=== PATIENT | male | born 1940 | race Caucasian/White ===

== ENCOUNTER 2016-03-03 13:48 | Inpatient (IN) | payer MEDICARE, BC ==
[~2016-03-03] VITALS: Ht 165.1 cm; Wt 75.3 kg
[2016-03-03] MEDS ORDERED: ONDANSETRON 4 MG INJ IV STA (14:12)
[2016-03-03] MEDS ORDERED: SOD CHLORIDE 0.9% 1,000 ML IV STA (14:12)
[2016-03-03] MEDS ORDERED: morphine 2 MG INJ IV ONE (14:30)
[2016-03-03 14:37] LABS: BASOPHILS % 0.1 % (0.0-2.0); EOSINOPHILS # 0.2 10^3/ul (0.0-0.5); HEMATOCRIT 43.5 % (42.0-52.0); HEMOGLOBIN 14.4 g/dl (14.0-18.0); LYMPHOCYTES # 1.2 10^3/ul (0.8-2.9); LYMPHOCYTES % 6.7 % (15.0-51.0); MEAN CORPUSCULAR HEMOGLOBIN 31.2 pg (29.0-33.0); MEAN CORPUSCULAR HGB CONC 33.2 g/dl (32.0-37.0); MEAN CORPUSCULAR VOLUME 93.9 fl (82.0-101.0); MEAN PLATELET VOLUME 8.5 fl (7.4-10.4); MONOCYTE # 0.9 10^3/ul (0.3-0.9); MONOCYTES % 4.7 % (0.0-11.0); NEUTROPHIL # 15.7 10^3/ul (1.6-7.5); NEUTROPHILS % 87.5 % (39.0-77.0); PLATELET COUNT 236 10^3/UL (140-440); RED BLOOD COUNT 4.63 10^6/ul (4.70-6.10)
[2016-03-03 14:42] LABS: ADD UMIC NO; URINE BILIRUBIN (Dip) NEGATIVE (NEGATIVE); URINE BLOOD (Dip) NEGATIVE (NEGATIVE); URINE COLOR LT. YELLOW (YELLOW); URINE GLUCOSE (Dip) >=1000 % (NEGATIVE); URINE KETONES (Dip) NEGATIVE (NEGATIVE); URINE LEUKOCYTE ESTERASE (Dip) NEGATIVE (NEGATIVE); URINE NITRITE (Dip) NEGATIVE (NEGATIVE); URINE TOTAL PROTEIN (Dip) NEGATIVE (NEGATIVE); URINE UROBILINOGEN (Dip) 0.2 E.U./dL (0.1-1.0)
[2016-03-03 14:43] LABS: CONDITION 1
[2016-03-03 14:47] LABS: INR 0.88; PROTIME 11.9 Sec (12.2-14.2); PT RATIO 0.9
[2016-03-03 14:48] LABS: PARTIAL THROMBOPLASTIN TIME 26.4 Sec (25.0-35.0)
[2016-03-03] MEDS ORDERED: CLOP75TA27 PO (14:51)
[2016-03-03] MEDS ORDERED: LISI40TA9 PO (14:51)
[2016-03-03 14:52] LABS: CREATININE 1.21 mg/dl (0.61-1.24)
[2016-03-03] MEDS ORDERED: ESCI10TA PO (14:52)
[2016-03-03] MEDS ORDERED: AMLO5TAB4 PO (14:52)
[2016-03-03 14:53] LABS: CALCIUM 9.2 mg/dl (8.4-10.2)
[2016-03-03] MEDS ORDERED: METF-382 PO (14:53)
[2016-03-03] MEDS ORDERED: ASPI-664 PO (14:54)
[2016-03-03] MEDS ORDERED: CANA100T PO (14:55)
[2016-03-03] MEDS ORDERED: CARV12.579 PO (14:56)
[2016-03-03] MEDS ORDERED: LANT3I SC (14:56)
[2016-03-03] MEDS ORDERED: FURO40TA4 PO (14:57)
[2016-03-03] MEDS ORDERED: LIRA0.6P SQ (14:59)
[2016-03-03] MEDS ORDERED: NOVO3I SC (15:00)
[2016-03-03] MEDS ORDERED: CYAN100 PO (15:01)
[2016-03-03 15:04] LABS: TROPONIN-I 0.016 ng/ml (0.00-0.12)
--- NOTE | 2016-03-03 15:37 | RADRPT ---
PROCEDURE: CT Brain without. CLINICAL INDICATION: Fall, laceration to right eyebrow. TECHNIQUE: A CT of the brain was performed on multidetector high-resolution CT scanner utilizing a xial sections from the skull base through the vertex without contrast. The scan was reviewed in sof t tissue brain and high frequency resolution bone algorithm windows. Images were reviewed on a high -resolution PACS workstation. One or more the following does reduction techniques were utilized: Aut omated exposure control, adjustment of the mA/ or kV according to patient's size, or use of iterativ e reconstruction technique. The exam CTDI = 44.80 mGy and the DLP = 720.23 mGy-cm. COMPARISON: None available. FINDINGS: The ventricles and sulci are mildly to moderately prominent indicative of volume loss. There is mild to moderate cerebellar volume loss. There is no intracranial hemorrhage, mass effect or midline sh ift. No abnormal intra-axial or extra-axial fluid collections are seen. The duran/white matter diffe rentiation is preserved. There is prominent retrocerebellar CSF space which may represent delmis ciste rna magna versus arachnoid cyst. There are moderate scattered foci of hypoattenuation in the white matter, which are nonspecific in e tiology but likely reflect chronic small vessel ischemic changes. Small lacunar infarcts are noted i n bilateral lentiform nuclei. There are moderate intracranial vascular calcifications consistent wi th atherosclerosis. The visualized paranasal sinuses are essentially clear. Mild right supraorbital soft tissue swelling is noted without underlying skull fracture. There is thinning of bilateral lens indicative of prior lens replacement. IMPRESSION: 1. No acute intracranial hemorrhage, transcortical infarction or mass effect. 2. Moderate intracranial atherosclerosis and chronic small vessel ischemic changes. 3. Small lacunar infarcts are noted in bilateral lentiform nuclei. 4. Mild to moderate generalized cerebral and cerebellar volume loss. 5. Mild right supraorbital soft tissue swelling is noted without underlying skull fracture. RPTAT: AA .Amita Chang MD, MD Date Time Electronically viewed and signed by .Amita Chang MD, MD on 03/03/2016 15:37 .N/
--- NOTE | 2016-03-03 15:37 | RADRPT ---
PROCEDURE: XR Chest. CLINICAL INDICATION: Chest pain TECHNIQUE: AP view of the chest was performed. COMPARISON: None. FINDINGS: The lungs are clear. The lung volumes are normal. The heart size is normal. The osseous structure s are intact. IMPRESSION: No radiographic evidence for acute cardiopulmonary disease RPTAT: QQ .Manjeet Damon MD, Date Time Electronically viewed and signed by .Manjeet Damon MD, on 03/03/2016 15:37 .M/
--- NOTE | 2016-03-03 15:51 | RADRPT ---
PROCEDURE: CT of the right femur without contrast CLINICAL INDICATION: Fall TECHNIQUE: CT scan of the right femur was performed. No IV contrast was administered. Coronal an d sagittal reformatted images were obtained from the axial source images. images. Use of iterative r econstruction technique was employed. images. The calculated radiation dose measures 1000.12 mGy jamie timeters. The CTDI measures 18.48 mGy. Images were reviewed on a high-resolution PACS workstation. COMPARISON: None. FINDINGS: Osseous structures: There is a comminuted, intertrochanteric fracture of the right hip with the lesser trochanter displa jovon medially by up to 1.1 cm. There is also mild displacement of the greater trochanter axial serie s image 52. Femoral head is otherwise located. There is underlying mild to moderate right hip arth rosis. The osseous structures appear demineralized. No additional fractures are identified. Soft tissues: There is soft tissue infiltration surrounding the fracture site related to hemorrhage/hematoma. No large intramuscular collections are suspected. Atherosclerotic vascular calcifications are seen. IMPRESSION: 1. Mildly comminuted and displaced right intertrochanteric fracture, as above. 2. Decreased bone mineral density. 3. Atherosclerotic vascular calcifications. RPTAT: QQ .Elton Saenz MD, Date Time Electronically viewed and signed by .Elton Saenz MD, MD on 03/03/2016 15:50 .d/
[2016-03-03] MEDS ORDERED: morphine 4 MG/ML VIAL IV STA (16:10)
[2016-03-03] MEDS ORDERED: ACETAMINOPHEN 325 MG TAB PO PRN ×2 (16:30→19:00)
[2016-03-03] MEDS ORDERED: ONDANSETRON 4 MG INJ IV PRN ×2 (16:30→19:00)
--- NOTE | 2016-03-03 16:56 | ERA ---
ER Documentation Chief Complaint Date/Time DATE: 03/03/16 TIME: 16:47 Chief Complaint trip and fall c/o rt groin pain ROS All systems reviewed and are negative except as per history of present illness. Medications Home Meds Reported Medications Cyanocobalamin* (Vitamin B12*) 100 Mcg Tab, 100 MCG PO DAILY, TAB 03/03/16 Insulin Aspart* (Novolog Insulin Pen*) 100 Unit/Ml Soln, 0 SC .SLIDING SCALE AC , EA BEFORE MEALS THREE TIMES DAILY 03/03/16 Liraglutide (Victoza 2-Kt) 0.6 Mg/0.1 Ml Pen.injctr, 1.2 MG SQ QAM, SYR 03/03/16 Furosemide* (Furosemide*) 40 Mg Tablet, 40 MG PO DAILY, TAB 03/03/16 Carvedilol* (Carvedilol*) 12.5 Mg Tablet, 12.5 MG PO BID, #60 TAB 03/03/16 Insulin Glargine* (Lantus*) 100 Unit/Ml Soln, 10-14 UNIT SC QHS, #1 VIAL 03/03/16 Canagliflozin (Invokana) 100 Mg Tablet, 100 MG PO DAILY, TAB 03/03/16 Aspirin (Low Dose Aspirin) 81 Mg Tablet.dr, 81 MG PO DAILY, #30 TAB 03/03/16 Metformin Hcl* (Metformin Hcl*) 500 Mg Tablet, 1000 MG PO WITH DINNER, #30 TAB 03/03/16 Amlodipine Besylate* (Norvasc*) 5 Mg Tablet, 5 MG PO DAILY, TAB 03/03/16 Escitalopram Oxalate* (Lexapro*) 10 Mg Tablet, 10 MG PO DAILY, #30 TAB 03/03/16 Clopidogrel Bisulfate (Clopidogrel) 75 Mg Tablet, 75 MG PO DAILY, #30 TAB 03/03/16 Lisinopril* (Lisinopril*) 40 Mg Tablet, 40 MG PO DAILY, #30 TAB 03/03/16 Allergies Allergies: Coded Allergies: No Known Allergy (Unverified , 03/03/16) PMhx/Soc History of Surgery: Yes (PROSTATECTOMY, APPENDIX) Anesthesia Reaction: No Hx Neurological Disorder: No Hx Respiratory Disorders: No Hx Cardiac Disorders: Yes (HTN) Hx Psychiatric Problems: No Hx Miscellaneous Medical Probl: Yes (DM) Hx Alcohol Use: Yes (SOCIALLY) Hx Substance Use: No Hx Tobacco Use: No Smoking Status: Never smoker Physical Exam Vitals Vital Signs Date Time Temp Pulse Resp B/P Pulse Ox O2 Delivery O2 Flow Rate FiO2 03/03/16 13:56 97.7 51 18 146/122 97 Physical Exam Const: [] Head: Atraumatic Eyes: Normal Conjunctiva ENT: Normal External Ears, Nose and Mouth. Neck: Full range of motion..~ No meningismus. Resp: Clear to auscultation bilaterally Cardio: Regular rate and rhythm, no murmurs Abd: Soft, non tender, non distended. Normal bowel sounds Skin: No petechiae or rashes Back: No midline or flank tenderness Ext: No cyanosis, or edema Neur: Awake and alert Psych: Normal Mood and Affect Result Diagram: 03/03/16 1415 03/03/16 1415 Results 24 hrs Laboratory Tests Test 03/03/16 14:00 03/03/16 14:15 03/03/16 15:47 Urine Bilirubin NEGATIVE Urine Clarity CLEAR Urine Color LT. YELLOW Urine Glucose >=1000% Urine Hemoglobin NEGATIVE Urine Ketones NEGATIVE Urine Leukocyte Esterase NEGATIVE Urine Nitrite NEGATIVE Urine Specific [place] 1.010 Urine Total Protein NEGATIVE Urine Urobilinogen 0.2 E.U./dL Urine pH 6.5 Activated Partial Thromboplast Time 26.4Sec Anion Gap 17 Basophils # 0.010^3/ul Basophils % 0.1% Blood Urea Nitrogen 28mg/dl Calcium Level 9.2mg/dl Carbon Dioxide Level 28mmol/L Chloride Level 97mmol/L Creatinine 1.21mg/dl Eosinophils # 0.210^3/ul Eosinophils % 1.0% Glucose Level 349mg/dl Hematocrit 43.5% Hemoglobin 14.4g/dl INR International Normalized Ratio 0.88 Lymphocytes # 1.210^3/ul Lymphocytes % 6.7% Mean Corpuscular Hemoglobin 31.2pg Mean Corpuscular Hemoglobin Concent 33.2g/dl Mean Corpuscular Volume 93.9fl Mean Platelet Volume 8.5fl Monocytes # 0.910^3/ul Monocytes % 4.7% Neutrophils # 15.710^3/ul Neutrophils % 87.5% Nucleated Red Blood Cells # 0.010^3/ul Nucleated Red Blood Cells % 0.0/100WBC Platelet Count 02434^3/UL Potassium Level 4.0mmol/L Prothrombin Time 11.9Sec Prothrombin Time Ratio 0.9 Red Blood Count 4.6310^6/ul Red Cell Distribution Width 13.0% Sodium Level 138mmol/L Troponin I 0.016ng/ml White Blood Count 18.010^3/ul Lactic Acid Level 1.5mmol/L Current Medications Medications (Trade) Dose Ordered Sig/Genaro Route PRN Reason Start Time Stop Time Status Last Admin Dose Admin Sodium Chloride (NS) 1,000 ml @ 1,000 mls/hr Q1H STAT IV 03/03/16 14:12 03/03/16 15:11 DC 03/03/16 14:24 Morphine Sulfate (morphine) 2 mg ONCE ONCE IV 03/03/16 14:30 03/03/16 14:31 DC 03/03/16 14:25 Ondansetron HCl (Zofran Inj) 4 mg ONCE STAT IV 03/03/16 14:12 03/03/16 14:17 DC 03/03/16 14:25 Morphine Sulfate (morphine) 4 mg ONCE STAT IV 03/03/16 16:10 03/03/16 16:11 DC 03/03/16 16:15 Ondansetron HCl (Zofran Inj) 4 mg BRIDGE ORDER PRN IV NAUSEA AND/OR VOMITING 03/03/16 16:30 03/04/16 16:29 Acetaminophen (Tylenol Tab) 650 mg ER BRIDGE PRN PO MILD PAIN/FEVER 03/03/16 16:30 03/04/16 16:29 Procedures/MDM Hip fracture status post fall backwards. Patient has some bradycardia but no signs of acute coronary syndrome or acute ischemia. He does have an elevated white blood cell count 18 but no urinary tract infection no abdominal pain and no cough or shortness of breath. Has been feeling weaker than normal lately but no other acute anomalies are found. He is happy and joking around in the emergency room. He was given 2 mg of morphine which helped his pain though when he moves he had additional pain he was then given 4 mg of morphine. He was also given Zofran and normal saline hydration. He also had a high blood sugar and mild renal insufficiency with elevated BUN and was treated with the normal saline. I spoke with Dr Ward, orthopedist on-call, who stated that he would see the patient on consult and surgery likely be performed on Friday. I spoke with Dr. Montoya will be admitting the patient.. EKG interpretation: Sinus bradycardia rate of 44, left axis deviation, diffuse T -wave flattening versus low voltage, no ST elevations or depressions concerning for acute ischemia. air sampling and monitoring interpretation: Mild sinus bradycardia without other arrhythmias. Chest x-ray interpretation: No acute process, no infiltrates, no hemorrhage no pleural effusion or pneumothorax no fractures Head CT interpretation: I see no acute process. No hemorrhage no mass effect or midline shift no skull fracture CT left upper extremity interpretation: Comminuted intertrochanteric hip fracture. No other fractures or dislocations visualized. Departure Diagnosis: Primary Impression: Closed right hip fracture Additional Impressions: Hyperglycemia due to type 2 diabetes mellitus Bradycardia Renal insufficiency Condition: Stable IMMANUEL GASTON DO Mar 03, 2016 16:56
[2016-03-03 17:10] VITALS: BP 135/76; PULSE 68; RESP 20
[2016-03-03 17:16] VITALS: Ht 165.1 cm; Wt 75.3 kg
[2016-03-03] MEDS ORDERED: NACL 0.9% 3 ML SYG IV SCH (19:00)
[2016-03-03] MEDS ORDERED: DEXTROSE 50% 50 ML SYRINGE IV PRN ×2 (19:00)
[2016-03-03] MEDS ORDERED: GLUCAGON 1 MG INJ IM PRN (19:00)
[2016-03-03] MEDS ORDERED: GLUCOSE GEL 15 GRAM TUBE BUCCAL PRN (19:00)
[2016-03-03] MEDS ORDERED: GLUCOSE GEL 15 GRAM TUBE PO PRN ×2 (19:00)
[2016-03-03] MEDS ORDERED: DOCUSATE SODIUM 100 MG CAP PO PRN (19:00)
--- NOTE | 2016-03-03 20:16 | HP ---
DATE OF ADMISSION: 03/03/2016 CHIEF COMPLAINT: Right hip pain. HISTORY OF PRESENT ILLNESS: The patient is a 75-year-old male with a history of prostate cancer sta tus post prostatectomy, coronary artery disease, status post stents, insulin-dependent diabetes and hypertension. The patient presents after having mechanical fall while he was at work. He landed on the right hip who presented with hip pain. In the ED, the patient had a CT of the right femur that showed a fracture on the right side. The patient does have complaints of pain in his right hip at this time and he has no other complaints. He states that he did fall some time ago, but did not hav e any fractures. He denies any loss of consciousness before or after the fall. PAST MEDICAL HISTORY: As per HPI. PAST SURGICAL HISTORY: 1. Prostatectomy secondary to prostate cancer. 2. PCI with stent. 3. Cataract surgery. HOME MEDICATIONS: 1. Norvasc. 2. Aspirin. 3. Coreg. 4. Plavix. 5. Vitamin B12. 6. Lexapro. 7. Furosemide. 8. Insulin. 9. Lisinopril. 10. Metformin. 11. Victoza. 12. Invokana. ALLERGIES: NO KNOWN DRUG ALLERGIES. FAMILY HISTORY: Diabetes. SOCIAL HISTORY: Denies any current alcohol abuse, drug abuse, tobacco abuse. REVIEW OF SYSTEMS: A 12-point review of systems negative except as in HPI. PHYSICAL EXAMINATION: VITAL SIGNS: Temperature is 98.8, pulse 60, respiratory rate 20, blood pressure 135/76, saturation 98% on room air. GENERAL: No acute distress, alert and oriented. HEENT: Normocephalic, atraumatic. LUNGS: Clear to auscultation. CARDIOVASCULAR: Regular rate and rhythm. ABDOMEN: Nondistended, nontender, soft. EXTREMITIES: No clubbing, cyanosis, or edema. LABORATORIES: White count is 18.0, hemoglobin is 14.4, platelets 236. Chemistry within normal limi ts except for anion gap of 17, BUN is 28, creatinine is 1.2, glucose is 349. Troponin is 0.016. La ctic acid is 1.5. INR is 0.88. Urine is normal. DIAGNOSTICS: 1. Lower extremity CT shows mildly comminuted and displaced right intertrochanteric fracture and de creased bone marrow density atherosclerosis. 2. Chest x-ray shows no evidence of active disease. 3. Brain CT shows no acute intracranial hemorrhage, infarction or mass effect. Moderate intracrani al atherosclerosis, chronic small vessel ischemic changes, small lacunar infarcts and bilateral lent iform nuclei, mild to moderate generalized cerebral and cerebellar volume loss, mild right supraorbi alanis soft tissue swelling without underlying skull fracture. ASSESSMENT AND PLAN: 1. Right hip fracture. Orthopedics, Dr. Ward has been called, follow up with his recommendations. Continue morphine and [place] for pain control. The patient states that he is unable to urinate while lying down, he needs cannot urinate hence Ch catheter will be placed for this reason. 2. Diabetes. Continue with Lantus and give NovoLog scheduled as well as a sliding scale. 3. Hypertension. We will continue home Norvasc. 4. Depression. Continue home Lexapro. 5. Coronary artery disease. Hold aspirin and Plavix in anticipation of surgery. 6. Leukocytosis. This is likely reactive. No signs of infection. No indication for antibiotics a t this time. 7. Prophylaxis. Heparin. Dictated By: ADOLFO OBRIEN MD BS/NTS Conf#: [id number] DID#: [id number]
[2016-03-03 20:19] VITALS: BP 156/78; RESP 18
[2016-03-03] MEDS: morphine 2 MG INJ IV PRN (20:38)
[2016-03-03] MEDS: HEPARIN 5,000 UNIT/0.5 ML SYG SC SCH (20:41)
[2016-03-03] MEDS: INSULIN ASPART [NOVOLOG] 3 ML PEN SC SCH (20:42)
[2016-03-03] MEDS: INSULIN GLARGINE [LANtus] 3 ML PEN SC SCH (20:43)
[2016-03-03] MEDS ORDERED: INSULIN GLARGINE [LANtus] 3 ML PEN SC SCH (21:00)
[2016-03-03] MEDS ORDERED: FAMOTIDINE 20 MG INJ IV SCH (22:00)
[2016-03-03] MEDS: ZOLPIDEM 5 MG TAB PO PRN (22:26)
[2016-03-03] MEDS: FAMOTIDINE 20 MG INJ IV SCH (22:26)
[2016-03-04 05:44] LABS: BASOPHILS % 0.2 % (0.0-2.0); EOSINOPHILS % 0.3 % (0.0-7.0); HEMATOCRIT 30.7 % (42.0-52.0); HEMOGLOBIN 10.6 g/dl (14.0-18.0); LYMPHOCYTES # 1.2 10^3/ul (0.8-2.9); LYMPHOCYTES % 12.3 % (15.0-51.0); MEAN CORPUSCULAR HEMOGLOBIN 32.3 pg (29.0-33.0); MEAN CORPUSCULAR HGB CONC 34.6 g/dl (32.0-37.0); MEAN CORPUSCULAR VOLUME 93.4 fl (82.0-101.0); MEAN PLATELET VOLUME 8.7 fl (7.4-10.4); MONOCYTES % 10.4 % (0.0-11.0); NEUTROPHIL # 7.4 10^3/ul (1.6-7.5); NEUTROPHILS % 76.8 % (39.0-77.0); PLATELET COUNT 169 10^3/UL (140-440); RED BLOOD COUNT 3.29 10^6/ul (4.70-6.10); UNCORRECTED WBC 9.6 10^3/ul (4.8-10.8); WHITE BLOOD COUNT 9.6 10^3/ul (4.8-10.8)
[2016-03-04 05:55] LABS: CONDITION 1
[2016-03-04 06:01] LABS: ALBUMIN 2.7 g/dl (3.3-4.9)
[2016-03-04 06:02] LABS: POTASSIUM 3.4 mmol/L (3.5-5.1)
[2016-03-04 06:04] LABS: ALBUMIN/GLOBULIN RATIO 1.35; BILIRUBIN,INDIRECT 1.6 mg/dl (0-1.1); BILIRUBIN,TOTAL 1.6 mg/dl (0.2-1.3); CREATININE 1.22 mg/dl (0.61-1.24); TOTAL PROTEIN 4.7 g/dl (6.1-8.1)
[2016-03-04 06:05] LABS: CALCIUM 8.1 mg/dl (8.4-10.2); CHOL/HDL RATIO 1.5 RATIO; MAGNESIUM 1.9 mg/dl (1.7-2.5); PHOSPHORUS 4.6 mg/dl (2.5-4.9)
[2016-03-04 06:23] VITALS: BP 116/66; PULSE 66
[2016-03-04] MEDS: FUROSEMIDE 40 MG TAB PO SCH (06:26)
[2016-03-04] MEDS ORDERED: INSULIN ASPART [NOVOLOG] 3 ML PEN SC SCH (07:50)
[2016-03-04 08:00] VITALS: BP 125/62; PULSE 65; RESP 16
[2016-03-04] MEDS ORDERED: POTASSIUM CHLORIDE 20 MEQ in SOD CHLORIDE 0.9% 100 ML IVPB ONE (08:00)
[2016-03-04] MEDS: morphine 2 MG INJ IV PRN (08:25)
[2016-03-04] MEDS: INSULIN ASPART [NOVOLOG] 3 ML PEN SC SCH ×6 (08:31→20:58)
[2016-03-04] MEDS: ESCITALOPRAM 10 MG TAB PO SCH (08:54)
[2016-03-04] MEDS: AMLODIPINE 5 MG TAB PO SCH (08:54)
[2016-03-04] MEDS: CYANOCOBALAMIN 100 MCG TAB PO SCH (08:54)
[2016-03-04] MEDS: LISINOPRIL 20 MG TAB PO SCH (08:55)
[2016-03-04] MEDS: HEPARIN 5,000 UNIT/0.5 ML SYG SC SCH (09:00)
--- NOTE | 2016-03-04 09:20 | CONS ---
DATE OF ADMISSION: 03/03/2016 DATE OF CONSULTATION: 03/04/2016 CHIEF COMPLAINT: Right hip pain. HISTORY OF PRESENT ILLNESS: This is a 75-year-old male who is a community ambulator. The patient d oes not use any assistive devices. He fell onto his right hip. He is complaining of right groin pa in. He denies any loss of consciousness. REVIEW OF SYSTEMS: He denies having chest pain or shortness of breath. He has no other complaints. PAST MEDICAL HISTORY: Hypertension, diabetes, prostate cancer, coronary artery disease. MEDICATIONS: 1. Norvasc. 2. Aspirin. 3. Coreg. 4. Plavix. 5. Lexapro. 6. Furosemide. 7. Insulin. 8. Lisinopril. 9. Metformin. 10. Victoza. 11. Invokana. PAST SURGICAL HISTORY: Prostatectomy secondary to prostate cancer, PCI with stent, cataract surgery . SOCIAL HISTORY: The patient lives with his spouse. Denies tobacco, alcohol, or drug use. He ambul ates without the use of any assistive devices. FAMILY HISTORY: Diabetes. ALLERGIES: NO KNOWN DRUG ALLERGIES. REVIE OF SYSTEMS: Negative except for HPI. PHYSICAL EXAMINATION: VITAL SIGNS: Temperature 98.8, blood pressure 135/76, pulse of 60, respiratory rate of 20. EXTREMITIES: Right lower extremity: There are no open wounds. 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 He has pain with axial loading. His calf is soft, nontender with a negative Homans. He is neurovascularly intact in the right lower extremity. IMAGING: Hip: CT of the hip demonstrates a displaced right intertrochanteric femur fracture. ASSESSMENT AND PLAN: A 75-year-old male who fell sustaining a right closed displaced oblique intert rochanteric femur fracture. PLAN: I will order x-rays of the hip and pelvis as well as the right femur. The patient will requi re medical optimization. I discussed the risks associated with surgery. The risks include, but are not limited to, infection, deep venous thrombosis, pulmonary embolism, malunion, nonunion, need for revision surgery, painful hardware, need for secondary surgery, osteoarthritis, heart attack, strok e, need for blood transfusion, and even . I also explained to him there is up to a 35% chance of 1-year mortality. The patient will be consented for a right hip open reduction internal fixation . He will have bilateral SCDs while in bed. He will receive Ancef 1 g IV prior to OR and 2 g every 8 hours after surgery. He will also be placed on aspirin 325 mg p.o. b.i.d. for 6 weeks after surgery . All questions were answered to his satisfaction. Dictated By: LIZZIE ROSAS/VICENTA Conf#: [id number] DID#: [id number]
[2016-03-04] MEDS ORDERED: POTASSIUM CHLORIDE (SR) 20 MEQ TAB PO STA (09:23)
--- NOTE | 2016-03-04 10:36 | PN ---
DATE: 03/04/2016 SUBJECTIVE DATA: Complains of severe right hip pain. OBJECTIVE DATA: VITAL SIGNS: Temperature 97.8, pulse rate 66, respiratory rate 18, blood pressure 166/66, oxygen saturation 97% on room air. GENERAL: This is a well-built, well-nourished male patient lying in bed in no apparent distress. HEENT: Head normocephalic and atraumatic. Eyes: Anicteric sclerae. Conjunctivae clear. ENT: Nasal septum is midline. Oral mucosa is dry. NECK: Supple. No JVD noticed. RESPIRATORY: Bilaterally clear to auscultation. No adventitious breath sounds heard. No use of accessory muscles of respiration. CARDIAC: Regular rate and rhythm, bradycardia. ABDOMEN: Soft, nontender and nondistended. Bowel sounds positive in all 4 quadrants. GENITOURINARY: The patient has a Ch catheter in place. EXTREMITIES: No cyanosis, no clubbing, no edema. Peripheral pulses palpable. Right hip tenderness. NEUROLOGIC: The patient is awake, alert and oriented. Cranial nerves are grossly intact. LABORATORY AND DIAGNOSTIC DATA: WBC 9.6, hemoglobin 10.6, hematocrit 30.7, platelet count 169. Sodium 134, potassium 3.4, chloride 99, carbon dioxide 26, anion gap 11, BUN 13, creatinine 1.2, glucose 163, calcium 8.1, phosphorus 4.6, magnesium 1.9, hemoglobin A1c 9.4. ASSESSMENT & PLAN: 1. Mildly comminuted and displaced right intertrochanteric fracture of the femur. Status post evaluation by orthopedic surgery. Plan for surgical intervention. Will call Cardiology for cardiac clearance. 2. Type 2 diabetes mellitus, uncontrolled. Hemoglobin A1c 9.4. Will adjust insulin dosing to obtain optimal blood sugar control. 3. Essential hypertension. Continue antihypertensives. Blood pressure fairly well controlled. 4. History of depression. Continue SSRIs. 5. CAD, status post stenting in the past. Aspirin on hold for possible surgical intervention. As per the patient, the patient had stent placed approximately 1-1/2 years ago. Cardiology evaluation pending. 6. History of prostate cancer. S/P surgical resection and radiation. 7. Fluid, electrolytes and nutrition. Carbohydrate controlled, low cholesterol diet. 8. DVT prophylaxis. Subcutaneous heparin. 9. Gastrointestinal prophylaxis with histamine 2 receptor blockers. PLAN: Await orthopedic surgery intervention. Continue pain control. Case discussed with Dr. White. Plan of care was explained to the patient's family. The patient's family is requesting evaluation by Dr. Foster. The patient was already seen by Dr. Ward from orthopedic Surgery. BRYAN WHITE MD, AM/VICENTA Conf#: [id number] DID#: [id number] MTDD
--- NOTE | 2016-03-04 10:50 | QN ---
Documentation Comment The patient was initially evaluated by the orthopedic surgeon on-call (Dr. Ward) . However, the patient's family was requesting Dr. Foster to evaluate the patient since the patient's family knows Dr. Foster. Hence a call was made to 's office and talked to Dr. Foster. He agreed to see the patient and put the patient on schedule for surgery on 03/05/2016. Will inform Dr. Ward about this. Case discussed with Dr. Thomas. BRYAN TURNER NP Mar 04, 2016 10:50
[2016-03-04 11:34] LABS: HEMATOCRIT 29.6 % (42.0-52.0)
--- NOTE | 2016-03-04 12:24 | RADRPT ---
PROCEDURE: hip x-ray CLINICAL INDICATION: FRACTURE TECHNIQUE: 2 AP views of the right femur. COMPARISON: Right hip CT 03/03/2016 FINDINGS: Comminuted intertrochanteric right hip fracture deformity with approximately 90 degrees of varus ang ulation at the fracture site. Medial displacement of the lesser trochanter of approximately 1.5 cm. The remaining right femur is intact. Degenerative changes of the knee joint. The pelvis is gross ly intact. IMPRESSION: 1. Comminuted right intertrochanteric hip fracture. 2. Intact right femoral shaft and distal femur. 3. Grossly intact visualized pelvis. RPTAT:AAJJ Physician Doreen Date Time Electronically viewed and signed by Physician Doreen on 03/04/2016 12:24 HEATHER/
--- NOTE | 2016-03-04 12:27 | RADRPT ---
PROCEDURE: Pelvis x-ray CLINICAL INDICATION: FRACTURE/AMEND TO [address] ADEN ALSO ADD RT HIP TECHNIQUE: Single AP view of the pelvis performed. COMPARISON: Right extremity CT 03/03/2016. FINDINGS: Comminuted intertrochanteric right hip fracture with 90 degrees varus angulation at the fracture sit e. Grossly intact pelvis and sacrum. The left hip is intact with preservation of the joint space. The visualized lower lumbar spine demonstrates multilevel degenerative disk space narrowing and end plate spurring. Ch catheter in place. IMPRESSION: Right intertrochanteric comminuted fracture. No evidence of pelvic fracture or left hip fracture. RPTAT:AAJJ Physician Doreen Date Time Electronically viewed and signed by Physician Doreen on 03/04/2016 12:27 HEATHER/
--- NOTE | 2016-03-04 12:31 | RADRPT ---
PROCEDURE: XR Hip. CLINICAL INDICATION: FRACTURE/ADD [address] ADNE TECHNIQUE: AP and frog lateral views of the right hip were performed. COMPARISON: 03/03/2016 CT right hip. FINDINGS: Comminuted intertrochanteric fracture with 90 degrees of varus angulation at the fracture site. Mar ked medial displacement of the lesser trochanteric fragment of possibly 1.5 cm. The proximal femur and pelvis are unremarkable. The femoral head remains normally articulating with the acetabulum. IMPRESSION: Intertrochanteric right hip fracture as described above. RPTAT:AAJJ Physician Doreen Date Time Electronically viewed and signed by Physician Doreen on 03/04/2016 12:31 HEATHER/
--- NOTE | 2016-03-04 16:31 | RADRPT ---
Echocardiogram Report Patient Name: CHANTEL DE LOS SANTOS Gender: Male Date: 1940 Study Date: 04-Mar-2016 Paraprofessional Aide: Ford Ramsey [facility] Location: 403 Ref. Physician: ADOLFO OBRIEN Quality: Technically Difficult Study Procedures: Transthoracic echocardiogram with complete 2D, M-Mode, and doppler examination. Indications: Evaluate Left Ventricular function. 2D/M Mode Doppler Measurement Value Normal Ranges Measurement Value Normal Ranges LVIDd 2D 5.1 3.5 - 5.6 cm AV Peak Issa 1.0 m/sec LVIDs 2D 4.0 2.1 - 4.1 cm AV Peak PG 3.8 mmHg LVPWd 2D 1.3 0.6 - 1.1 cm LVOT Peak Issa 0.7 m/sec IVSd 2D 1.2 0.6 - 1.1 cm LVOT Peak PG 2.0 mmHg AoR Diam 2D 3.0 2.0 - 3.7 cm MV E Peak Issa 0.4 m/sec EDV 2D 123.9 cm3 MV A Peak Issa 0.9 m/sec ESV 2D 66.2 cm3 MV E/A 0.4 LA Dimen 2D 2.5 2.3 - 4.0 cm MV Decel Time 227 msec MV Decel Geary 2 MV E/A 0.4 Findings Left Ventricle: Normal left ventricular cavity size. Mild concentric left ventricular hypertrophy. Mild global left ventricular systolic dysfunction. Ejection fraction is visually estimated at 4550 %. Tissue Doppler/Mitral Doppler indices are consistent with impaired relaxation (Stage I diastolic dysfunction). Right Ventricle: Normal right ventricular size. Normal right ventricular systolic function. Left Atrium: The left atrium is normal in size. Right Atrium: The right atrium is normal in size. Mitral Valve: Mitral valve leaflets appear mildly thickened. Trace mitral regurgitation. Aortic Valve: Aortic cusps appear mildly calcified. Mild aortic valve regurgitation. Tricuspid Valve: Normal appearance and function of the tricuspid valve with trace physiologic regurgitation. Pericardium: Normal pericardium with no significant pericardial effusion. Aorta: Normal aortic root. IVC: Normal size and normal respiratory collapse consistent with normal right atrial pressure. Conclusions 1.Normal left ventricular cavity size. Mild concentric left ventricular hypertrophy. Mild global left ventricular systolic dysfunction. Ejection fraction is visually estimated at 45-50 %. Tissue Doppler/Mitral Doppler indices are consistent with impaired relaxation (Stage I diastolic dysfunction). 2.Mitral valve leaflets appear mildly thickened. Trace mitral regurgitation. 3.Normal appearance and function of the tricuspid valve with trace physiologic regurgitation. 4.Aortic cusps appear mildly calcified. Mild aortic valve regurgitation. 5.Normal size and normal respiratory collapse consistent with normal right atrial pressure. Electronically Signed By: Adolfo Burk 04-Mar-2016 16:31:09 -0800 Patient Name: CHANTEL DE LOS SANTOS Study Date: 04-Mar-2016 [id number]
[2016-03-04] MEDS: HYDROCODONE/APAP (5/325) TAB PO PRN (17:50)
--- NOTE | 2016-03-04 18:09 | CONS ---
DATE OF ADMISSION: 03/03/2016 DATE OF CONSULTATION: 03/04/2016 REFERRING PHYSICIAN: Ashish Turner NP, and Phi Montoya MD REASON FOR CONSULTATION: Cardiovascular preop evaluation. SURGICAL PROBLEM: Hip fracture. HISTORY OF PRESENT ILLNESS: Thank you for this referral. History is obtained from the patient, dis cussion with his , discussion with the patient's sheet metal mechanic, Dr. Jatinder Edwards, extensive review o f his chart, including the records from his sheet metal mechanic's office, Dr. Edwards. This is a 75-year-old pleasant gentleman with history of coronary artery disease, status post TN, status post PCI of LAD 07/2014, history of congestive heart failure, mostly secondary to diastolic dysfunction, who had a f all and had a hip fracture. The patient stated that he was standing up, he got dizzy, he got lighth eaded, he fell, and he had a hip fracture. The patient has been evaluated by ortho and is in need o f surgery. We were kindly asked to optimize prior to the surgery. The patient denies any chest meka n or pressure to me. His walking is limited due to his leg pain and discomfort. He denies any ches t pain or pressure to me. Denies any dyspnea on exertion to me at this point. He stated he used to run marathons in the past. He has been running bradycardia apparently for some time. In the emerg ency room, he was running heart rate of 46 on the EKG. PAST MEDICAL HISTORY: History of coronary artery disease, status post TN in 07/2014, status post PC I of the ostial LAD with a 3.5 x 8 mm drug-eluting stent, history of hypertension, diabetes, dyslipi demia, tobacco abuse, which he has stopped about a few months ago, history of prostate carcinoma. PAST SURGICAL HISTORY: Status post coronary intervention as mentioned, otherwise appendectomy. MEDICATIONS: 1. Aspirin. 2. Lasix. 3. Invokana. 4. Insulin. 5. Lexapro. 6. Lisinopril. 7. Livalo. 8. Metformin. 9. Norvasc 5 mg. 10. Pioglitazone. 11. Plavix. 12. Victoza. 13. The patient also has been on ____. ALLERGIES: NO REPORTED ALLERGIES; HOWEVER, HAS NOT TOLERATED THE STATINS WELL AND DOES NOT WANT TO BE ON IT. REVIEW OF SYSTEMS: Positive for hip pain as above mentioned. Otherwise, denied all other review of systems except for above mentioned. PHYSICAL EXAMINATION: VITAL SIGNS: Temperature 97.8, heart rate of 60, blood pressure 116/66, respiration rate of 18, sat urating 97%. HEENT: Normocephalic, atraumatic. Appears in no acute distress. Pupils are equal and round. CARDIOVASCULAR: Bradycardic. Systolic murmur. PULMONARY: With no wheezes, no rhonchi. GASTROINTESTINAL: Soft, nontender. EXTREMITIES: No significant lower extremity edema. NEUROLOGIC: Awake, alert. PSYCHIATRIC: Calm, pleasant. LABORATORY DATA: EKG was personally reviewed, which shows marked sinus bradycardia with nonspecific ST-T abnormalities. Echocardiogram was also personally reviewed, which shows ejection fraction of 45% to 50% with grade I diastolic dysfunction. Chest x-ray shows no acute disease. Femoral x-ray s howed right intertrochanteric hip fracture. Review of the old chart from Dr. Durand' office showed that the patient has had a nuclear stress test done on 07/18/2015, which showed normal perfusion. ASSESSMENT AND PLAN: 1. Cardiovascular preop evaluation. 2. Hip fracture. 3. Coronary artery disease. 4. History of myocardial infarction. 5. History of congestive heart failure. 6. History of hypertension. 7. Abnormal EKG. 8. Sinus bradycardia currently secondary to beta-phillip. 9. History of dyslipidemia. 10. History of diabetes. 11. History of tobacco use. He has quit a few months ago. RECOMMENDATIONS: I will change the patient's Coreg to 6.25 t.i.d. to have a better control his hear t rate and blood pressure. We will continue with the rest of his cardiac care. Diabetic management as per internal medicine. The patient's recent stress test has not shown any evidence of ischemia and he currently remains asymptomatic from the cardiac standpoint and optimized. No further cardiac workup would be indicated. I explained to the patient and his that due to his multiple risk f actors, he will be at moderate risk of cardiovascular event, but no further cardiac workup is indica sam. Thank you for this referral. We will continue to follow along with you. Dictated By: LORETTA JEAN-BAPTISTE/VICENTA Conf#: [id number] DID#: [id number] CC: ASHISH TURNER NP; LIZZIE LOVE MD; PHI MONTOYA MD;*EndCC*
[2016-03-04 19:12] VITALS: BP 113/58; RESP 20
[2016-03-04] MEDS: ZOLPIDEM 5 MG TAB PO PRN (20:52)
[2016-03-04] MEDS: INSULIN GLARGINE [LANtus] 3 ML PEN SC SCH (20:57)
[2016-03-04] MEDS: FAMOTIDINE 20 MG INJ IV SCH (21:01)
[2016-03-05] VITALS (21 sets, daily range): BP systolic 135–160; BP diastolic 56–89; PULSE 54–68; RESP 17–20
[2016-03-05] MEDS: FUROSEMIDE 40 MG TAB PO SCH (05:09)
[2016-03-05 05:45] LABS: ALBUMIN 2.8 g/dl (3.3-4.9)
[2016-03-05 05:46] LABS: POTASSIUM 3.9 mmol/L (3.5-5.1)
[2016-03-05 05:48] LABS: ALBUMIN/GLOBULIN RATIO 1.4; BILIRUBIN,INDIRECT 1.4 mg/dl (0-1.1); BILIRUBIN,TOTAL 1.4 mg/dl (0.2-1.3); CALCIUM 8.4 mg/dl (8.4-10.2); CREATININE 1.34 mg/dl (0.61-1.24); TOTAL PROTEIN 4.8 g/dl (6.1-8.1)
[2016-03-05 06:00] LABS: BASOPHILS % 0.1 % (0.0-2.0); EOSINOPHILS # 0.1 10^3/ul (0.0-0.5); EOSINOPHILS % 1.3 % (0.0-7.0); HEMATOCRIT 27.6 % (42.0-52.0); HEMOGLOBIN 9.6 g/dl (14.0-18.0); LYMPHOCYTES % 10.1 % (15.0-51.0); MEAN CORPUSCULAR HEMOGLOBIN 32.3 pg (29.0-33.0); MEAN CORPUSCULAR HGB CONC 34.8 g/dl (32.0-37.0); MEAN CORPUSCULAR VOLUME 92.8 fl (82.0-101.0); MEAN PLATELET VOLUME 8.5 fl (7.4-10.4); MONOCYTE # 1.1 10^3/ul (0.3-0.9); MONOCYTES % 10.6 % (0.0-11.0); NEUTROPHIL # 7.9 10^3/ul (1.6-7.5); NEUTROPHILS % 77.9 % (39.0-77.0); PLATELET COUNT 151 10^3/UL (140-440); RED BLOOD COUNT 2.97 10^6/ul (4.70-6.10); RED CELL DISTRIBUTION WIDTH 13.2 % (11.5-14.5); UNCORRECTED WBC 10.2 10^3/ul (4.8-10.8); WHITE BLOOD COUNT 10.2 10^3/ul (4.8-10.8)
[2016-03-05 06:05] LABS: CONDITION 1
[2016-03-05 06:14] LABS: PHOSPHORUS 3.1 mg/dl (2.5-4.9)
[2016-03-05 06:15] LABS: MAGNESIUM 2.1 mg/dl (1.7-2.5)
[2016-03-05] MEDS ORDERED: CEFAZOLIN 1 GM INJ ONE (07:00)
[2016-03-05] MEDS: INSULIN ASPART [NOVOLOG] 3 ML PEN SC SCH ×7 (07:50→20:33)
[2016-03-05] MEDS: ESCITALOPRAM 10 MG TAB PO SCH (08:33)
[2016-03-05] MEDS: CYANOCOBALAMIN 100 MCG TAB PO SCH (08:33)
[2016-03-05] MEDS: LISINOPRIL 20 MG TAB PO SCH ×2 (09:00→09:28)
[2016-03-05] MEDS: AMLODIPINE 5 MG TAB PO SCH (09:28)
[2016-03-05] MEDS: SOD CHLORIDE 0.9% 1,000 ML IV SCH ×2 (09:29→22:59)
--- NOTE | 2016-03-05 09:34 | PN ---
Date/Time of Note Date/Time of Note DATE: 03/05/16 TIME: 09:31 Assessment/Plan VTE Prophylaxis VTE Prophylaxis Intervention: SCD's Lines/Catheters IV Catheter Type (from [facility] Saline Lock Urinary Cath still in place: Yes Reason Cath still needed: other (indicate) (Hip fracture.) Assessment/Plan Chief Complaint/Hosp Course 1. Mildly comminuted and displaced right intertrochanteric fracture of the femur. Status post evaluation by orthopedic surgery. Plan for surgical intervention. 2. Type 2 diabetes mellitus, uncontrolled. Hemoglobin A1c 9.4. Will adjust insulin dosing to obtain optimal blood sugar control. 3. Essential hypertension. Continue antihypertensives. Blood pressure fairly well controlled. 4. History of depression. Continue SSRIs. 5. CAD, status post stenting in the past. Aspirin on hold for surgical intervention. 6. Acute kidney injury. Etiology unclear. Most probably secondary to hemodynamics versus dehydration. Will start the patient on gentle IV hydration. 7. History of prostate cancer. S/P surgical resection and radiation. 8. Fluid, electrolytes and nutrition. Carbohydrate controlled, low cholesterol diet. Currently NPO for surgery. 9. DVT prophylaxis. Chemical prophylaxis on hold for surgery. 10. Gastrointestinal prophylaxis with histamine 2 receptor blockers. PLAN: Await orthopedic surgery intervention. Continue pain control. Case discussed with Dr. Thomas. Problems: Subjective 24 Hr Interval Summary Free Text/Dictation Vital signs stable. Pain well controlled. Exam/Review of Systems Vital Signs Vitals Vital Signs Date Time Temp Pulse Resp B/P Pulse Ox O2 Delivery O2 Flow Rate FiO2 03/05/16 07:56 98.5 63 18 155/71 98 03/04/16 08:00 Room Air Intake and Output 03/04/16 03/04/16 03/05/16 15:00 23:00 07:00 Intake Total 1910 ml 120 ml Output Total 940 ml 1200 ml Balance 970 ml -1080 ml Exam GENERAL: This is a well-built, well-nourished male patient lying in bed in no apparent distress. HEENT: Head normocephalic and atraumatic. Eyes: Anicteric sclerae. Conjunctivae clear. ENT: Nasal septum is midline. Oral mucosa is dry. NECK: Supple. No JVD noticed. RESPIRATORY: Bilaterally clear to auscultation. No adventitious breath sounds heard. No use of accessory muscles of respiration. CARDIAC: Regular rate and rhythm, bradycardia. ABDOMEN: Soft, nontender and nondistended. Bowel sounds positive in all 4 quadrants. GENITOURINARY: The patient has a Ch catheter in place. EXTREMITIES: No cyanosis, no clubbing, no edema. Peripheral pulses palpable. Right hip tenderness. NEUROLOGIC: The patient is awake, alert and oriented. Cranial nerves are grossly intact. Results Result Diagram: 03/05/16 0425 03/05/16 0425 Results 24 hrs Laboratory Tests Test 03/04/16 11:20 03/04/16 12:22 03/04/16 17:22 03/04/16 19:49 Hematocrit 29.6 L Hemoglobin 10.0 L Bedside Glucose 201 280 H 230 H Test 03/05/16 02:29 03/05/16 04:25 03/05/16 09:26 Bedside Glucose 201 198 Alanine Aminotransferase (ALT/SGPT) 26 Albumin 2.8 L Albumin/Globulin Ratio 1.40 Alkaline Phosphatase 51 Anion Gap 11 Aspartate Amino Transf (AST/SGOT) 21 Basophils # 0.0 Basophils % 0.1 Blood Urea Nitrogen 32 H Calcium Level 8.4 Carbon Dioxide Level 29 Chloride Level 99 Creatinine 1.34 H Direct Bilirubin 0.00 Eosinophils # 0.1 Eosinophils % 1.3 Globulin 2.00 Glucose Level 160 Hematocrit 27.6 L Hemoglobin 9.6 L Indirect Bilirubin 1.4 H Lymphocytes # 1.0 Lymphocytes % 10.1 L Magnesium Level 2.1 Mean Corpuscular Hemoglobin 32.3 Mean Corpuscular Hemoglobin Concent 34.8 Mean Corpuscular Volume 92.8 Mean Platelet Volume 8.5 Monocytes # 1.1 H Monocytes % 10.6 Neutrophils # 7.9 H Neutrophils % 77.9 H Nucleated Red Blood Cells # 0.0 Nucleated Red Blood Cells % 0.0 Phosphorus Level 3.1 Platelet Count 151 Potassium Level 3.9 Red Blood Count 2.97 L Red Cell Distribution Width 13.2 Sodium Level 135 Total Bilirubin 1.4 H Total Protein 4.8 L White Blood Count 10.2 Medications Medications Current Medications Ondansetron HCl (Zofran Inj) 4 mg Q6H PRN IV NAUSEA AND/OR VOMITING Last administered on 03/03/16t 22:34; Admin Dose 4 MG; Start 03/03/16 at 19:00 Acetaminophen (Tylenol Tab) 650 mg Q6H PRN PO PAIN LEVEL 1-3 OR FEVER; Start at 19:00 Acetaminophen/ Hydrocodone Bitart ([place] (5/325)) 1 tab Q6H PRN PO MODERATE PAIN LEVEL 4-6 Last administered on 03/04/16 17:50; Admin Dose 1 TAB; Start at 19:00 Morphine Sulfate (morphine) 2 mg Q4H PRN IV SEVERE PAIN LEVEL 7-10 Last administered on 03/04/16 08:25; Admin Dose 2 MG; Start 03/03/16 at 19:00 Docusate Sodium (Colace) 100 mg Q12H PRN PO CONSTIPATION; Start 03/03/16 at 19: 00 Zolpidem Tartrate (Ambien) 5 mg QHS PRN PO SLEEP Last administered on 20:52; Admin Dose 5 MG; Start 03/03/16 at 19:00 Miscellaneous Information 1 ea NOTE XX ; Start 03/03/16 at 19:00 Glucose (Glutose) 15 gm Q15M PRN PO DECREASED GLUCOSE; Start 03/03/16 at 19:00 Glucose (Glutose) 22.5 gm Q15M PRN PO DECREASED GLUCOSE; Start 03/03/16 at 19: 00 Dextrose (D50w Syringe) 25 ml Q15M PRN IV DECREASED GLUCOSE; Start 03/03/16 at 19:00 Dextrose (D50w Syringe) 50 ml Q15M PRN IV DECREASED GLUCOSE; Start 03/03/16 at 19:00 Glucagon (Glucagen) 1 mg Q15M PRN IM DECREASED GLUCOSE; Start 03/03/16 at 19:00 Glucose (Glutose) 15 gm Q15M PRN BUCCAL DECREASED GLUCOSE; Start 03/03/16 at 19 :00 Insulin Glargine (Lantus) 14 unit HS SC Last administered on 03/04/16 20:57; Admin Dose 14 UNIT; Start 03/03/16 at 21:00 Amlodipine Besylate (Norvasc) 5 mg DAILY PO Last administered on 03/04/16 08: 54; Admin Dose 5 MG; Start 03/04/16 at 09:00 Cyanocobalamin (Vitamin B12) 100 mcg DAILY PO Last administered on 03/04/16 08 :54; Admin Dose 100 MCG; Start 03/04/16 at 09:00 Escitalopram Oxalate (Lexapro) 10 mg DAILY PO Last administered on 03/04/16 08 :54; Admin Dose 10 MG; Start 03/04/16 at 09:00 Furosemide (Lasix) 40 mg DAILY@06 PO Last administered on 03/04/16 06:26; Admin Dose 40 MG; Start 03/04/16 at 06:00 Lisinopril (Zestril) 40 mg DAILY PO Last administered on 03/04/16 08:55; Admin Dose 40 MG; Start 03/04/16 at 09:00 Famotidine (Pepcid Iv) 20 mg 22 IV Last administered on 03/04/16 21:01; Admin Dose 20 MG; Start 03/03/16 at 22:00 Carvedilol 6.25 mg 6.25 mg BID PO Last administered on 03/04/16 20:52; Admin Dose 6.25 MG; Start 03/04/16 at 21:00 Sodium Chloride (NS) 1,000 ml @ 75 mls/hr [id number] IV ; Start 03/05/16 at 09:00 BRYAN TURNER NP Mar 05, 2016 09:34
[2016-03-05 10:57] LABS: IRON 23 ug/dl (35-150)
[2016-03-05 11:06] LABS: TOTAL IRON BINDING CAPACITY 246 ug/dl (241-421)
--- NOTE | 2016-03-05 11:50 | CONS ---
DATE OF ADMISSION: 03/03/2016 DATE OF CONSULTATION: 03/05/2016 REQUESTING PHYSICIAN: Phi Montoya MD REASON FOR CONSULTATION: Second opinion regarding a right hip fracture. 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 He noted immediate pain in the righ t hip and inability to bear weight on the right lower extremity. Prior to this fall, he has been am bulatory without the need for a cane or walker. He denies any history of pain in his right hip prio r to the fall. He was brought emergently to the [facility] and imaging studies re vealed a comminuted right intertrochanteric hip fracture. There was no pain elsewhere. No loss of consciousness. He does have a history of a cardiac stent and is on Plavix. He last took Plavix Sun day morning (2 days ago). He also has a history of diabetes and is on insulin. He was seen in cons ultation by another orthopedic surgeon (Dr. Ward). However, the family and the patient's reverse logistics analyst r equested that I be consulted to see the patient and perform surgery for his right hip fracture. PAST MEDICAL HISTORY: 1. Coronary artery disease. 2. History of prostate cancer status post prostatectomy 8 years ago with no evidence of local recur rence or metastatic disease. 3. Diabetes. 4. Hypertension. PAST SURGICAL HISTORY 1. Bilateral cataract surgery. 2. Radical prostatectomy. 3. Coronary artery stent placement. MEDICATIONS: 1. Norvasc. 2. Plavix. 3. Coreg. 4. Aspirin. 5. Vitamin B12. 6. Lexapro. 7. Lasix. 8. Insulin. 9. Lisinopril. 10. Metformin. 11. Victoza. 12. ____ ALLERGIES: NO KNOWN DRUG ALLERGIES. SOCIAL HISTORY: The patient is . He drinks rarely. He used to smoke up until about a month ago, a little less than a pack a day. FAMILY HISTORY: Diabetes, otherwise noncontributory. REVIEW OF SYSTEMS: GENERAL/CONSTITUTIONAL: Negative for recent fevers, chills, decreased appetite, fatigue, or unexplained weight loss. EYES/EARS/NOSE/MOUTH/THROAT: Negative for headaches, double vision, tearing, nose bleeding, colds, obstruction, discharge, dental difficulties, gingival bleeding, dentures, neck stiffness, pain, tend erness, or masses in thyroid or other areas. CARDIOVASCULAR: Negative for chest pain, palpitations, irregular heartbeat, syncope, dyspnea on exe rtion, orthopnea, nocturnal paroxysmal dyspnea. History of coronary artery disease with stent place ment and hypertension. RESPIRATORY: Negative for shortness of breath, wheezing, stridor, hemoptysis, tuberculosis, fever, or night sweats. GASTROINTESTINAL: Negative for dysphagia, abdominal pain, heartburn, nausea, vomiting, hematemesis, jaundice, constipation, diarrhea, abnormal stools (harry-colored, tarry, bloody, greasy, foul-smelli ng), or bright red blood per rectum. GENITOURINARY: Negative for urgency, frequency, dysuria, nocturia, hematuria, stones, infections, n ephritis, hesitancy, change in size of stream, dribbling, acute retention, or incontinence. History of prostate cancer. MUSCULOSKELETAL: Negative for pain, swelling, redness or heat of muscles or joints, limitation of m otion, muscular weakness, atrophy, or cramps. NEUROLOGIC/PSYCHIATRIC: Negative for convulsions, paralyses, tremor, incoordination, paresthesias, difficulties with memory or speech, sensory or motor disturbances, muscular coordination (ataxia, tr emor), emotional problems, anxiety, depression, previous psychiatric care, unusual perceptions, or h allucinations. HEMATOLOGIC: Negative for anemia, bleeding tendency, previous transfusions and reactions, or Rh inc ompatibility. ENDOCRINE: Negative for polydipsia, polyuria, hormone therapy, or intolerance to heat or cold. His tory of diabetes. PHYSICAL EXAMINATION: VITAL SIGNS: Temperature 98.5, blood pressure 155/71, pulse 63, respiratory rate 18, saturations 98% . GENERAL APPEARANCE: Well-developed, well-nourished male in no acute distress. ORIENTATION: Alert and oriented to person, place, and time. HEENT: Normocephalic, atraumatic, sclerae anicteric, no nasal discharge, oropharynx clear, dentition is good. SKIN: Normal color, texture, and turgor. No rashes noted throughout the trunk, bilateral upper extre mities, and bilateral lower extremities. NECK: Supple, nontender, without lymphadenopathy. No thyromegaly, no masses. CARDIAC: Regular rate and rhythm. LUNGS: Clear to auscultation bilaterally, with symmetric chest rise. ABDOMEN: Soft, nontender, nondistended. MUSCULOSKELETAL: The patient is lying in bed with the right lower extremity shortened and externall y rotated. The thigh is swollen but the compartments are soft. The skin is intact. There is pain i n the right hip with attempted passive range of motion. The left hip is soft with no pain on passiv e range of motion. Both knees without effusion, warmth or redness or instability to varus/valgus st ress testing. NEUROVASCULAR: Motor strength is 5/5 in the quadriceps, tibialis anterior, extensor hallucis longus , gastroc-soleus, and peroneals bilaterally. Sensation is intact to light touch throughout both lowe r extremities. There are 2+ palpable dorsalis pedis and posterior tibial pulses, with capillary refi ll less than 2 seconds in all 5 digits bilaterally. There is no distal edema. IMAGING: X-rays done yesterday show a comminuted right intertrochanteric hip fracture. There is ma rked displacement of the proximal fragment which is in varus. The lesser trochanter is displaced. There is diffuse osteopenia. No degenerative changes are seen in the hip joint. There are no obvio us bony lesions present. LABORATORY DATA: Laboratories done this morning reveal a white blood cell count of 10.2, hematocrit 27.6, platelet count 151. INR 0.88, PTT 26.4. Urine is negative for leukocyte esterase. BUN is 3 2, creatinine 1.34. ASSESSMENT AND PLAN: Comminuted, displaced right intertrochanteric hip fracture. DISCUSSION: The patient has a comminuted right intertrochanteric hip fracture which will require cullen rgical intervention with closed reduction and intramedullary rodding. I had a lengthy discussion wi th the patient about the nature of the surgery, typical recovery course, and what to expect from a f unctional standpoint. I explained that it will take probably about 2 to 3 months for the fracture t o heal given the comminuted nature of the fracture and the underlying osteoporosis that is present. During this time of healing, he will need to be touchdown weightbearing and use a walker for ambula tory support. I explained the risks of surgery to include but not be limited to bleeding and possib le need for blood transfusion, infection, pain, stiffness, neurovascular injury with possible numbne ss, weakness, and/or paralysis anywhere from the hip down to the toes, fracture, malunion, nonunion, need for additional future surgery including possible conversion to a calcar replacing hemiarthropl asty or total hip arthroplasty, wound healing problems, blood clots, pulmonary embolism, and anesthe tic complications such as heart attack, stroke, GI bleed, pneumonia and/or . Ample time was al lowed for the patient to ask questions, all of which were addressed and answered. He understands an d would like to proceed with surgery. He has been cleared medically and by the chain offbearer. Plavi x has been held. He understands that he is at greater risk for bleeding. We are going to transfuse him 2 units now preoperatively, but he may need additional blood postoperatively. He will be kept n.p.o. and given adequate pain medication. We will plan to perform the surgery this afternoon. Dictated By: ANASTASIA AN MD EZ/NTS Conf#: [id number] DID#: [id number] CC: LORETTA MENDOZA MD; PHI MONTOYA MD;*[facility]*
[2016-03-05] MEDS ORDERED: FUROSEMIDE 20 MG INJ IV ONE (13:00)
[2016-03-05] MEDS ORDERED: FENTAnyl 50 MCG/ML VIAL ONE ×2 (14:13→14:41)
[2016-03-05] MEDS ORDERED: MIDAZOLAM 1 MG/ML 2 ML INJ ONE (14:13)
[2016-03-05] MEDS ORDERED: GLYCOPYRROLATE 1 MG INJ ONE (14:18)
[2016-03-05] MEDS ORDERED: LIDOCAINE 2% (SDV) 5 ML INJ ONE (14:18)
[2016-03-05] MEDS ORDERED: PROPOFOL 20 ML ONE (14:18)
[2016-03-05] MEDS ORDERED: NEOSTIGMINE 3 MG/3 ML SYRINGE ONE (14:18)
[2016-03-05] MEDS ORDERED: ONDANSETRON 4 MG INJ ONE (14:18)
[2016-03-05] MEDS ORDERED: ROCURONIUM 50 MG INJ ONE (14:18)
--- NOTE | 2016-03-05 14:18 | PN ---
DATE: 03/05/2016 CARDIOLOGY FOLLOWUP PROGRESS NOTE SUBJECTIVE: Discussed with the staff, discussed with his . The patient has been anemic, transf usion was ordered by Dr. De La Rosa. The patient is scheduled for surgery today. He denies any chest p ain or pressure. He denies any palpitation, denies shortness of breath to me. MEDICATIONS: Reviewed. PHYSICAL EXAMINATION: VITAL SIGNS: Temperature 98.5, heart rate of 63, blood pressure of 150/70, respiration rate of 18, saturating 98%. HEENT: Normocephalic, atraumatic. Pupils are equal. CARDIOVASCULAR: Regular rate and rhythm. Systolic murmur. PULMONARY: With no wheezes or rhonchi. GASTROINTESTINAL: Soft, nontender. EXTREMITIES: With trivial lower extremity edema. NEUROLOGIC: Awake and alert. PSYCHIATRIC: Appears to be calm and pleasant. LABORATORY: Shows sodium 135, potassium 3.9, BUN of 32, creatinine of 1.34, glucose of 160. LDL of 8, HDL of 42. ASSESSMENT AND PLAN: 1. Cardiovascular preop evaluation. 2. Hip fracture. 3. Coronary artery disease. 4. History of myocardial infarction. 5. History of ostial LAD stent about a czag-uwb-o-half ago. 6. History of hypertension. 7. Abnormal EKG. 8. Dyslipidemia. 9. Diabetes. 10. Anemia. RECOMMENDATIONS: We will continue with the current cardiac care. Will give a dose of Lasix within the transfusion which was ordered already by Dr. De La Rosa today. Surgery is scheduled for today. Dictated By: LORETTA MENDOZA MD AV/VICENTA Conf#: [id number] DID#: [id number] CC: BRYAN TURNER APPEALS RN;*EndCC*
[2016-03-05] MEDS ORDERED: DEXAMETHASONE 4 MG/ML 1 ML INJ ONE (14:19)
[2016-03-05] MEDS ORDERED: ONDANSETRON 4 MG INJ IV PRN ×2 (15:00→16:30)
[2016-03-05] MEDS ORDERED: MIDAZOLAM 1 MG/ML 2 ML INJ IV PRN (15:00)
[2016-03-05] MEDS ORDERED: hydrALAzine 20 MG INJ IV PRN (15:00)
[2016-03-05] MEDS ORDERED: DIPHENHYDRAMINE 50 MG INJ IV PRN (15:00)
[2016-03-05] MEDS ORDERED: LABETALOL HCL 20MG INJ IV PRN (15:00)
[2016-03-05] MEDS ORDERED: HYDROmorphONE (0.2 MG/ML) 10ML SYG IV PRN ×3 (15:00)
[2016-03-05] MEDS ORDERED: EPHEDrine SULFATE 50 MG/5 ML SYG IV PRN (15:00)
[2016-03-05] MEDS ORDERED: MEPERIDINE 25 MG INJ IV PRN (15:00)
[2016-03-05] MEDS ORDERED: TRIMETHOBENZAMIDE 100 MG/ML VIAL IM PRN (15:00)
[2016-03-05] MEDS ORDERED: FENTAnyl 50 MCG/ML VIAL IV PRN ×3 (15:00)
[2016-03-05] MEDS ORDERED: POLYMYXIN/BACITRACIN 1L IRRIG IRR ONE (15:09)
[2016-03-05] MEDS ORDERED: POLYMYXIN/BACITRACIN 1L IRRIG ONE (15:20)
--- NOTE | 2016-03-05 16:24 | RADRPT ---
PROCEDURE: Intraoperative imaging of the right hip with fluoroscopy. CLINICAL INDICATION: Right hip pain. Intraoperative. TECHNIQUE: Four images of the right hip were obtained in the operating room with an image intensif ier. No radiologist was in attendance. 2.2 minutes of fluoroscopy time was used. COMPARISON: Right hip radiographs dated 03/04/2016. FINDINGS: Images demonstrate open reduction and internal fixation of the right hip with a ja in the shaft of the femur and a screw in the neck of the femur. A locking screw is also present distally in the rig ht femur. IMPRESSION: 1. Intraoperative imaging of the right hip. RPTAT: QQ .Kenneth Nicholson MD, MD Date Time Electronically viewed and signed by .Kenneth Nicholson MD, on 03/05/2016 16:24 .R/
[2016-03-05] MEDS ORDERED: NA PHOSPHATE/BIPHOS 133 ML ENEMA PR PRN (16:30)
[2016-03-05] MEDS ORDERED: HYDROmorphONE 1 MG/ML SYG IV PRN (16:30)
[2016-03-05] MEDS ORDERED: oxyCODONE 5 MG TAB PO PRN ×2 (16:30)
[2016-03-05] MEDS ORDERED: NACL 0.9% 3 ML SYG IV SCH (16:30)
[2016-03-05] MEDS ORDERED: BISACODYL 10 MG SUPP PR PRN (16:30)
[2016-03-05] MEDS ORDERED: DIPHENHYDRAMINE 25 MG CAP PO PRN (16:30)
--- NOTE | 2016-03-05 16:39 | PN ---
Date/Time of Note Date/Time of Note DATE: 03/05/16 TIME: 16:34 Assessment/Plan Lines/Catheters IV Catheter Type (from Nrsg): Saline Lock Rao in Place (from Nrsg): Yes Assessment/Plan Assessment/Plan Stable in PACU, s/p closed reduction IM nailing, right hip fx -cont abx -pain meds -Lovenox 30mg SC qdaily for DVT prophylaxis -SCDs -OOB with PT. Toe touch weight bearing -check AM labs -d/c rao in AM XR of the right hip and right knee is pending at this time Subjective 24 Hr Interval Summary Stable in PACU. Moving all extremities. Denies significant pain. Mildly lethargic from anesthesia. Exam/Review of Systems Vital Signs Vitals Vital Signs Date Time Temp Pulse Resp B/P Pulse Ox O2 Delivery O2 Flow Rate FiO2 03/05/16 16:31 98.9 03/05/16 07:56 63 18 155/71 98 03/04/16 08:00 Room Air Intake and Output 03/04/16 03/04/16 03/05/16 15:00 23:00 07:00 Intake Total 1910 ml 120 ml Output Total 940 ml 1200 ml Balance 970 ml -1080 ml Exam Free Text/Dictation Dressing dry Incision clean, dry, and intact without redness or drainage 5/5 Quadriceps, Tibialis Anterior, EHL, Gastroc, Soleus, Peroneals Normal sensation Palpable DT/PT, CR <2 sec No distal edema Results Result Diagram: 03/05/16 0425 03/05/16 0425 GAIL YEUNG PA-C Mar 05, 2016 16:39
[2016-03-05 16:44] LABS: HEMATOCRIT 33.6 % (42.0-52.0); HEMOGLOBIN 11.3 g/dl (14.0-18.0)
[2016-03-05] MEDS: CEFAZOLIN 2 GM/50 ML (PMX) 50 ML IVPB SCH (16:50)
--- NOTE | 2016-03-05 16:50 | OPPN ---
Date/Time of Note Date/Time of Note DATE: 03/05/16 TIME: 16:49 Operative/Procedure Note Dictation # [id number] Pre-Operative Diagnosis Right Hip IT Fx Post-Operative Diagnosis Same Procedure Closed reduction and IM Nailing Right Hip Fx Surgeon: ANASTASIA AN MD Buckle Stapler: GAIL YEUNG PA-C Anesthesiologist: Acosta Meredith M.D. Findings Comminuted IT Hip Fx Blood Usage/Administration 1 u PRBC Implants/Grafts Synthes TFN Estimated blood loss: 100 - 150 ml's Drains: Not applicable Specimens: Not Applicable Complications: None Anesthesia type: general ANASTASIA AN MD Mar 05, 2016 16:50
[2016-03-05 17:02] LABS: POTASSIUM 3.9 mmol/L (3.5-5.1)
[2016-03-05 17:05] LABS: CREATININE 1.17 mg/dl (0.61-1.24)
[2016-03-05 17:06] LABS: CALCIUM 8.2 mg/dl (8.4-10.2)
--- NOTE | 2016-03-05 18:09 | RADRPT ---
PROCEDURE: Right knee radiographs. CLINICAL INDICATION: Right knee pain. TECHNIQUE: Two views. Frontal and lateral. COMPARISON: No prior studies are available for comparison. FINDINGS: There is a ja in the shaft of the femur with a locking screw distally. Lateral skin gil are no sam. Vascular calcifications are present consistent with atherosclerosis. There is no joint effusion. The the articular surfaces are intact. There is no lytic or blastic lesion. There are degenerative changes of the knee joint with medial joint compartment narrowing. IMPRESSION: 1. Postoperative changes. 2. Moderate degenerative change. 3. Otherwise unremarkable images of the right knee. RPTAT: QQ .Kenneth Nicholson MD, MD Date Time Electronically viewed and signed by .Kenneth Nicholson MD, on 03/05/2016 18:08 .R/
--- NOTE | 2016-03-05 18:09 | RADRPT ---
PROCEDURE: XR Pelvis. CLINICAL INDICATION: Pelvic pain. TECHNIQUE: Single AP view of the pelvis. COMPARISON: 03/04/2016. FINDINGS: There has been open reduction and internal fixation of the intertrochanteric fracture of the right h ip with a ja in the shaft of the femur and a screw in the neck of the femur. Alignment is satisfac tory. Right lateral skin gil are noted. Vascular calcifications are present consistent with at herosclerosis. The left hip is grossly normal. There is no lytic or blastic lesion. Articular surfaces are intact. The sacroiliac joints are grossly unremarkable. There are degenerative changes of the lower lumbar spine. There is a Ch catheter in the bladder. IMPRESSION: 1. Satisfactory postoperative appearance of the right hip. RPTAT: QQ .Kenneth Nicholson MD, Date Time Electronically viewed and signed by .Kenneth Nicholson MD, on 03/05/2016 18:09 .R/
--- NOTE | 2016-03-05 18:10 | RADRPT ---
PROCEDURE: XR Right Hip. CLINICAL INDICATION: Right hip pain. Postop. TECHNIQUE: Single frontal view. COMPARISON: Intraoperative imaging done earlier the same day. FINDINGS: There is an open reduction and internal fixation of the intertrochanteric fracture of the right hip with a ja in the shaft of the femur and a screw in the neck of the femur. Alignment is satisfactor y. Right lateral skin gil are noted. Vascular calcifications are present consistent with atherosclerosis. Articular surfaces are intact. There is no lytic or blastic lesion. A locking screw is present distally in the femur. IMPRESSION: 1. Satisfactory postoperative appearance of the right hip and femur. RPTAT: QQ .Kenneth Nicholson MD, MD Date Time Electronically viewed and signed by .Kenneth Nicholson MD, on 03/05/2016 18:10 .R/
[2016-03-05] MEDS: traMADol 50 MG TAB PO SCH ×3 (18:15→23:00)
[2016-03-05] MEDS: LACTATED RINGER'S 1,000 ML IV SCH (18:19)
[2016-03-05] MEDS: ACETAMINOPHEN 1000MG/100ML IV 100 ML IVPB SCH ×2 (18:30→23:01)
[2016-03-05] MEDS: PANTOPRAZOLE (EC) 40 MG TAB PO SCH (18:31)
--- NOTE | 2016-03-05 18:51 | OPR ---
DATE OF OPERATION: 03/05/2016 PREOPERATIVE DIAGNOSIS: Comminuted right intertrochanteric hip fracture. POSTOPERATIVE DIAGNOSIS: Comminuted right intertrochanteric hip fracture. OPERATION PERFORMED: Closed reduction and intramedullary rodding, right intertrochanteric hip fract ure. SURGEON: Anastasia An MD TREE PRUNER: MERT Toure COMPONENTS USED: Synthes trochanteric fixation nail, 11 mm diameter x 360 mm length ja with a 130 degree neck shaft angle, a 95 mm proximal helical blade, 40 mm distal interlocking screw. ANESTHESIA: General endotracheal intubation. ANESTHESIOLOGIST: Dr. Meredith. ESTIMATED BLOOD LOSS: 150 mL. INTRAVENOUS FLUIDS: 1 liter crystalloid and 1 unit packed red blood cells. SPECIMENS: None. DRAINS: None. COMPLICATIONS: None. DISPOSITION: The patient tolerated the procedure well and was taken to the recovery room in stable condition. INDICATIONS: The patient is a 75-year-old gentleman who fell and sustained a comminuted displaced r ight intertrochanteric hip fracture. I felt he would benefit from closed reduction and intramedulla ry rodding of the fracture. The risks, benefits, alternatives of the procedure were explained in de tail to the patient. I explained the risks to include but not be limited to bleeding and possible n eed for blood transfusion, infection, pain, stiffness, neurovascular injury, possible numbness, weak ness, and/or paralysis anywhere from the hip down to the toes; fracture, malunion, nonunion, need fo r additional surgery including possible conversion to a calcar replacement hemiarthroplasty or total hip arthroplasty, wound healing problems, blood clots, pulmonary embolism, and anesthetic complicat ions such as heart attack, stroke, GI bleed, pneumonia, and/or . Ample time was allowed for th e patient to ask questions, all of which were addressed and answered. He understood the risks invol alanna and wished to proceed. Informed consent was signed prior to the procedure. PROCEDURE: The right hip was initialed with a marking pen in the preoperative holding area to ident deshaun the correct operative site. The patient was then brought to the operating room and [facility] table where he was anesthetized and intubated. Ch sam ter had already been placed. Time out was performed to confirm the right side was the correct opera tive site. He was placed on the [place] table traction spars. The left lower extremity was lowered to the floor and the right lower extremity was adducted, internally rotated, and placed in traction. A crutch was placed under the proximal femur to elevate the distal fragment. AP and lateral x-rays showed that the fracture alignment looked good. At this point, the patient was given 2 grams of int ravenous Ancef. The right hip and lower extremity were prepped and draped in usual sterile fashion. A small incision was made over the lateral aspect of the hip and carried down to subcutaneous tissue and fat with sharp dissection. The gluteus milan fascia was incised and the gluteus milan musc le fibers were bluntly split. The guidewire was then passed through this opening to the tip of the greater trochanter and advanced to the level of the lesser trochanter, confirming on AP and lateral views this was in good position. The 17 mm was then reamed over this to the level of the lesser tro chanter. The beaded guidewire was passed through this opening down into the distal femur, confirmin g on AP and lateral views this was in good position. I then reamed over the wire with the flexible reamers up to 12.5 mm, getting good chatter. The length of the ja was measured to be 360 mm length . An 11 x 360 mm right-sided trochanteric fixation nail with 130 degree neck shaft angle was opened and impacted over the guidewire into the femur such that the proximal hole was in good position to accept the helical blade. Through a separate incision over the proximal lateral femur, through the targeting jig, a guidewire was passed up into the femoral head and neck, confirming on AP and latera l views this was in good position within the head. The lateral cortex was drilled and then the step drill was used to drill up the femoral head. The length was measured and a 95 mm helical blade was impacted over the guidewire up into the femoral head and neck. The proximal set screw was tightene d. The fracture was compressed to get a good alignment. There was some comminution along the media l calcar where the lesser trochanter was displaced. The overall alignment looked good. Attention w as turned distally, and through a small stab incision using standard AO freehand technique, a distal interlocking screw was drilled and filled to appropriate length, getting a good bite. Final AP and lateral C-arm images showed the fracture to be well aligned and the screw distally to be in good po sition and through the ja and of appropriate length. The wounds were all irrigated with antibiotic saline and closed in layers with #1 Vicryl, 0 Vicryl, 3-0 Vicryl, and gil on the skin. Skin ed ges were sealed with Dermabond. The wounds were covered with silver Mepilex and the distal wound an d covered with 4x4 and a Tegaderm dressing. The drapes were removed. The patient was taken out of the traction spars and [facility], was placed in supine position. The spong e and needle counts were correct. The patient was awakened, extubated, and taken to the recovery ro om in stable condition. Dictated By: ANASTASIA AN MD EZ/NTS Conf#: [id number] DID#: [id number] CC: ADOLFO OBRIEN MD;*EndCC*
[2016-03-05] MEDS: DOCUSATE SODIUM 100 MG CAP PO SCH (20:29)
[2016-03-05] MEDS: PREGABALIN 25 MG CAP PO SCH (20:30)
[2016-03-05] MEDS: INSULIN GLARGINE [LANtus] 3 ML PEN SC SCH (20:35)
[2016-03-05] MEDS: FAMOTIDINE 20 MG INJ IV SCH (21:58)
[2016-03-06] MEDS: LACTATED RINGER'S 1,000 ML IV SCH ×3 (00:19→16:25)
[2016-03-06] MEDS: CEFAZOLIN 2 GM/50 ML (PMX) 50 ML IVPB SCH ×2 (00:21→08:40)
[2016-03-06 05:15] LABS: HEMATOCRIT 26.5 % (42.0-52.0); HEMOGLOBIN 9.2 g/dl (14.0-18.0); LYMPHOCYTES # 0.4 10^3/ul (0.8-2.9); LYMPHOCYTES % 4.1 % (15.0-51.0); MEAN CORPUSCULAR HEMOGLOBIN 31.5 pg (29.0-33.0); MEAN CORPUSCULAR HGB CONC 34.6 g/dl (32.0-37.0); MEAN CORPUSCULAR VOLUME 90.9 fl (82.0-101.0); MEAN PLATELET VOLUME 8.9 fl (7.4-10.4); MONOCYTE # 0.8 10^3/ul (0.3-0.9); NEUTROPHIL # 9.3 10^3/ul (1.6-7.5); NEUTROPHILS % 87.9 % (39.0-77.0); PLATELET COUNT 136 10^3/UL (140-440); RED BLOOD COUNT 2.92 10^6/ul (4.70-6.10); RED CELL DISTRIBUTION WIDTH 14.4 % (11.5-14.5); UNCORRECTED WBC 10.6 10^3/ul (4.8-10.8); WHITE BLOOD COUNT 10.6 10^3/ul (4.8-10.8)
[2016-03-06 05:17] LABS: CONDITION 1
[2016-03-06 05:31] LABS: ALBUMIN 2.5 g/dl (3.3-4.9)
[2016-03-06 05:32] LABS: POTASSIUM 4.6 mmol/L (3.5-5.1)
[2016-03-06 05:34] LABS: ALBUMIN/GLOBULIN RATIO 1.19; BILIRUBIN,INDIRECT 0.9 mg/dl (0-1.1); BILIRUBIN,TOTAL 0.9 mg/dl (0.2-1.3); CREATININE 1.18 mg/dl (0.61-1.24); TOTAL PROTEIN 4.6 g/dl (6.1-8.1)
[2016-03-06 05:35] LABS: CALCIUM 8.2 mg/dl (8.4-10.2)
[2016-03-06 05:38] LABS: MAGNESIUM 2.1 mg/dl (1.7-2.5); PHOSPHORUS 4.1 mg/dl (2.5-4.9)
[2016-03-06] MEDS: PANTOPRAZOLE (EC) 40 MG TAB PO SCH ×2 (05:46→17:25)
[2016-03-06] MEDS: ACETAMINOPHEN 1000MG/100ML IV 100 ML IVPB SCH ×2 (05:46→12:25)
[2016-03-06] MEDS: traMADol 50 MG TAB PO SCH ×3 (05:47→17:26)
[2016-03-06] MEDS: FUROSEMIDE 40 MG TAB PO SCH (05:47)
[2016-03-06 06:17] LABS: ADD UMIC YES; URINE BILIRUBIN (Dip) NEGATIVE (NEGATIVE); URINE BLOOD (Dip) TRACE (NEGATIVE); URINE COLOR LT. YELLOW (YELLOW); URINE GLUCOSE (Dip) >=1000 % (NEGATIVE); URINE KETONES (Dip) TRACE (NEGATIVE); URINE LEUKOCYTE ESTERASE (Dip) TRACE (NEGATIVE); URINE NITRITE (Dip) NEGATIVE (NEGATIVE); URINE TOTAL PROTEIN (Dip) NEGATIVE (NEGATIVE); URINE UROBILINOGEN (Dip) 0.2 E.U./dL (0.1-1.0)
[2016-03-06 06:33] LABS: BACTERIA,URINE FEW; URINE RBCS 0-2 /HPF (0)
[2016-03-06 07:33] VITALS: BP 122/65; RESP 19
[2016-03-06] MEDS: INSULIN ASPART [NOVOLOG] 3 ML PEN SC SCH ×7 (07:50→21:00)
[2016-03-06] MEDS: DOCUSATE SODIUM 100 MG CAP PO SCH ×2 (08:40→21:20)
[2016-03-06] MEDS: ESCITALOPRAM 10 MG TAB PO SCH (08:43)
[2016-03-06] MEDS: ASPIRIN (EC) 81 MG TAB PO SCH (08:43)
[2016-03-06] MEDS: AMLODIPINE 5 MG TAB PO SCH (08:44)
[2016-03-06] MEDS: PREGABALIN 25 MG CAP PO SCH ×2 (08:44→21:20)
--- NOTE | 2016-03-06 08:44 | PN ---
Date/Time of Note Date/Time of Note DATE: 03/06/16 TIME: 08:41 Assessment/Plan Lines/Catheters IV Catheter Type (from Nrsg): Peripheral IV Ch in Place (from Nrsg): Yes Assessment/Plan Assessment/Plan Stable POD s/p closed reduction IM nailing, right hip fx -hold lovenox secondary to swelling/ecchymosis -cont ASA 81mg for now -pain meds -SCDs -OOB toe touch weight bearing -check H&H this afternoon -encourage incentive spirometry -d/c planning. Will likely need SNF ([facility]) Subjective 24 Hr Interval Summary Doing well. No acute overnight events. Mild pain secondary to marked swelling. Denies f/c. H&H dropped mildly but will monitor for now. Exam/Review of Systems Vital Signs Vitals Vital Signs Date Time Temp Pulse Resp B/P Pulse Ox O2 Delivery O2 Flow Rate FiO2 03/06/16 07:33 98.0 69 19 122/65 99 03/06/16 04:50 2.0 03/05/16 19:00 Nasal Cannula Intake and Output 03/05/16 03/05/16 03/06/16 15:00 23:00 07:00 Intake Total 1450 ml 750 ml 2200 ml Output Total 300 ml 1200 ml Balance 1450 ml 450 ml 1000 ml Exam Free Text/Dictation Dressing dry Incision clean, dry, and intact without redness or drainage Marked proximal soft tissue swelling with ecchymosis secondary to plavix 5/5 Quadriceps, Tibialis Anterior, EHL, Gastroc, Soleus, Peroneals Normal sensation Palpable DT/PT, CR <2 sec No distal edema Results Result Diagram: 03/06/16 0439 03/06/16 0439 GAIL YEUNG PA-C Mar 06, 2016 08:44
[2016-03-06] MEDS: LISINOPRIL 20 MG TAB PO SCH (08:45)
[2016-03-06] MEDS: CYANOCOBALAMIN 100 MCG TAB PO SCH (08:45)
[2016-03-06] MEDS ORDERED: INSULIN ASPART [NOVOLOG] 3 ML PEN SC ONE ×3 (09:00→14:00)
--- NOTE | 2016-03-06 09:26 | PN ---
Date/Time of Note Date/Time of Note DATE: 03/06/16 TIME: 09:25 Assessment/Plan VTE Prophylaxis VTE Prophylaxis Intervention: SCD's, other (Aspirin) Lines/Catheters IV Catheter Type (from Nrs): Peripheral IV Urinary Cath still in place: Yes Reason Cath still needed: other (indicate) Assessment/Plan Chief Complaint/Hosp Course 1. Mildly comminuted and displaced right intertrochanteric fracture of the femur. Status post closed reduction and intramedullary rodding on 03/05/2016. Continue pain control. Postoperative care as per orthopedic surgery. Continue physical therapy. 2. Type 2 diabetes mellitus, uncontrolled. Hemoglobin A1c 9.4. Will adjust insulin dosing to obtain optimal blood sugar control. 3. Essential hypertension. Continue antihypertensives. Blood pressure fairly well controlled. 4. History of depression. Continue SSRIs. 5. CAD, status post stenting in the past. Continue aspirin. 6. Acute kidney injury. Etiology unclear. Most probably secondary to hemodynamics versus dehydration. Resolved. 7. History of prostate cancer. S/P surgical resection and radiation. 8. Fluid, electrolytes and nutrition. Carbohydrate controlled, low cholesterol diet. 9. DVT prophylaxis. Aspirin and SCDs. 10. Gastrointestinal prophylaxis with histamine 2 receptor blockers. PLAN: Physical therapy. Continue pain control. Adjust insulin dosing to obtain optimal blood sugar control. Case discussed with Dr. Thomas. Problems: Subjective 24 Hr Interval Summary Free Text/Dictation The patient's blood sugars have been running high because of the Decadron that the patient got. Exam/Review of Systems Vital Signs Vitals Vital Signs Date Time Temp Pulse Resp B/P Pulse Ox O2 Delivery O2 Flow Rate FiO2 03/06/16 07:33 98.0 69 19 122/65 99 03/06/16 04:50 2.0 03/05/16 19:00 Nasal Cannula Intake and Output 03/05/16 03/05/16 03/06/16 15:00 23:00 07:00 Intake Total 1450 ml 750 ml 2200 ml Output Total 300 ml 1200 ml Balance 1450 ml 450 ml 1000 ml Exam GENERAL: This is a well-built, well-nourished male patient lying in bed in no apparent distress. HEENT: Head normocephalic and atraumatic. Eyes: Anicteric sclerae. Conjunctivae clear. ENT: Nasal septum is midline. Oral mucosa is dry. NECK: Supple. No JVD noticed. RESPIRATORY: Bilaterally clear to auscultation. No adventitious breath sounds heard. No use of accessory muscles of respiration. CARDIAC: Regular rate and rhythm, bradycardia. ABDOMEN: Soft, nontender and nondistended. Bowel sounds positive in all 4 quadrants. GENITOURINARY: The patient has a Ch catheter in place. EXTREMITIES: No cyanosis, no clubbing, no edema. Peripheral pulses palpable. Right hip surgical dressing. NEUROLOGIC: The patient is awake, alert and oriented. Cranial nerves are grossly intact. Results Result Diagram: 03/06/16 0439 03/06/16 0439 Results 24 hrs Laboratory Tests Test 03/05/16 09:26 03/05/16 12:22 03/05/16 16:40 03/05/16 18:29 Bedside Glucose 198 161 177 Anion Gap 12 Blood Urea Nitrogen 24 H Calcium Level 8.2 L Carbon Dioxide Level 25 Chloride Level 103 Creatinine 1.17 Glucose Level 156 Hematocrit 33.6 #L Hemoglobin 11.3 L Potassium Level 3.9 Sodium Level 136 Test 03/05/16 19:40 03/06/16 03:46 03/06/16 04:39 03/06/16 08:38 Bedside Glucose 206 403 *H Urine Bacteria FEW Urine Bilirubin NEGATIVE Urine Clarity CLEAR Urine Color LT. YELLOW Urine Glucose >=1000 Urine Hemoglobin TRACE Urine Ketones TRACE Urine Leukocyte Esterase TRACE H Urine Microscopic RBC 0-2 Urine Microscopic WBC 2-5 Urine Nitrite NEGATIVE Urine Specific Burt 1.010 Urine Total Protein NEGATIVE Urine Urobilinogen 0.2 E.U./dL Urine pH 5.5 Alanine Aminotransferase (ALT/SGPT) 26 Albumin 2.5 L Albumin/Globulin Ratio 1.19 Alkaline Phosphatase 49 Anion Gap 11 Aspartate Amino Transf (AST/SGOT) 25 Basophils # 0.0 Basophils % 0.0 Blood Urea Nitrogen 29 H Calcium Level 8.2 L Carbon Dioxide Level 28 Chloride Level 101 Creatinine 1.18 Direct Bilirubin 0.00 Eosinophils # 0.0 Eosinophils % 0.0 Globulin 2.10 Glucose Level 351 #H Hematocrit 26.5 #L Hemoglobin 9.2 L Indirect Bilirubin 0.9 Lymphocytes # 0.4 L Lymphocytes % 4.1 L Magnesium Level 2.1 Mean Corpuscular Hemoglobin 31.5 Mean Corpuscular Hemoglobin Concent 34.6 Mean Corpuscular Volume 90.9 Mean Platelet Volume 8.9 Monocytes # 0.8 Monocytes % 8.0 Neutrophils # 9.3 H Neutrophils % 87.9 H Nucleated Red Blood Cells # 0.0 Nucleated Red Blood Cells % 0.0 Phosphorus Level 4.1 Platelet Count 136 L Potassium Level 4.6 Red Blood Count 2.92 L Red Cell Distribution Width 14.4 Sodium Level 135 Total Bilirubin 0.9 Total Protein 4.6 L White Blood Count 10.6 Medications Medications Current Medications Ondansetron HCl (Zofran Inj) 4 mg Q6H PRN IV NAUSEA AND/OR VOMITING Last administered on 03/03/16 22:34; Admin Dose 4 MG; Start 03/03/16 at 19:00 Acetaminophen (Tylenol Tab) 650 mg Q6H PRN PO PAIN LEVEL 1-3 OR FEVER; Start at 19:00 Acetaminophen/ Hydrocodone Bitart (Phil Campbell (5/325)) 1 tab Q6H PRN PO MODERATE PAIN LEVEL 4-6 Last administered on 03/04/16 17:50; Admin Dose 1 TAB; Start at 19:00 Morphine Sulfate (morphine) 2 mg Q4H PRN IV SEVERE PAIN LEVEL 7-10 Last administered on 03/04/16 08:25; Admin Dose 2 MG; Start 03/03/16 at 19:00 Docusate Sodium (Colace) 100 mg Q12H PRN PO CONSTIPATION; Start 03/03/16 at 19: 00 Zolpidem Tartrate (Ambien) 5 mg QHS PRN PO SLEEP Last administered on 20:52; Admin Dose 5 MG; Start 03/03/16 at 19:00 Miscellaneous Information 1 ea NOTE XX ; Start 03/03/16 at 19:00 Glucose (Glutose) 15 gm Q15M PRN PO DECREASED GLUCOSE; Start 03/03/16 at 19:00 Glucose (Glutose) 22.5 gm Q15M PRN PO DECREASED GLUCOSE; Start 03/03/16 at 19: 00 Dextrose (D50w Syringe) 25 ml Q15M PRN IV DECREASED GLUCOSE; Start 03/03/16 at 19:00 Dextrose (D50w Syringe) 50 ml Q15M PRN IV DECREASED GLUCOSE; Start 03/03/16 at 19:00 Glucagon (Glucagen) 1 mg Q15M PRN IM DECREASED GLUCOSE; Start 03/03/16 at 19:00 Glucose (Glutose) 15 gm Q15M PRN BUCCAL DECREASED GLUCOSE; Start 03/03/16 at 19 :00 Insulin Glargine (Lantus) 14 unit HS SC Last administered on 03/05/16 20:35; Admin Dose 14 UNIT; Start 03/03/16 at 21:00 Amlodipine Besylate (Norvasc) 5 mg DAILY PO Last administered on 03/06/16 08: 44; Admin Dose 5 MG; Start 03/04/16 at 09:00 Cyanocobalamin (Vitamin B12) 100 mcg DAILY PO Last administered on 03/06/16 08 :45; Admin Dose 100 MCG; Start 03/04/16 at 09:00 Escitalopram Oxalate (Lexapro) 10 mg DAILY PO Last administered on 03/06/16 08 :43; Admin Dose 10 MG; Start 03/04/16 at 09:00 Furosemide (Lasix) 40 mg DAILY@06 PO Last administered on 03/06/16 05:47; Admin Dose 40 MG; Start 03/04/16 at 06:00 Lisinopril (Zestril) 40 mg DAILY PO Last administered on 03/06/16 08:45; Admin Dose 40 MG; Start 03/04/16 at 09:00 Famotidine (Pepcid Iv) 20 mg 22 IV Last administered on 03/04/16 21:01; Admin Dose 20 MG; Start 03/03/16 at 22:00 Carvedilol 6.25 mg 6.25 mg BID PO Last administered on 03/06/16 08:43; Admin Dose 6.25 MG; Start 03/04/16 at 21:00 Sodium Chloride 1,000 ml @ 75 mls/hr [id number] IV Last administered on 22:59; Admin Dose 75 MLS/HR; Start 03/05/16 at 09:00 Lactated Ringer's 1,000 ml @ 125 mls/hr Q8H IV Last administered on 03/05/16 18:19; Admin Dose 125 MLS/HR; Start 03/05/16 at 16:25 Acetaminophen (Ofirmev 1000mg/ 100ml Iv) 100 ml @ 400 mls/hr Q6 IVPB Last administered on 03/06/16 05:46; Admin Dose 400 MLS/HR; Start 03/05/16 at 18:00 ; Stop 03/06/16 at 17:59 Tramadol HCl (Ultram) 50 mg Q6 PO Last administered on 03/06/16 05:47; Admin Dose 50 MG; Start 03/05/16 at 12:00; Stop 03/08/16 at 11:59 Oxycodone HCl (Roxicodone) 5 mg Q4H PRN PO PAIN LEVEL 1-3; Start 03/05/16 at 16 :30 Oxycodone HCl (Roxicodone) 10 mg Q4H PRN PO PAIN LEVEL 4-7; Start 03/05/16 at 16:30 Hydromorphone HCl (Dilaudid) 1 mg Q3H PRN IV PAIN LEVEL 8-10; Start 03/05/16 at 16:30 Ondansetron HCl (Zofran Inj) 4 mg Q6H PRN IV NAUSEA AND/OR VOMITING; Start at 16:30 Bisacodyl (Dulcolax Supp) 10 mg Q12H PRN [place] CONSTIPATION; Start 03/05/16 at 16: 30 Magnesium Hydroxide (Milk Of Mag) 30 ml BID PRN PO CONSTIPATION; Start at 16:30 Sodium Biphosphate/ Sodium Phosphate (Fleet Enema) 133 ml DAILY PRN [place] CONSTIPATION; Start 03/05/16 at 16:30 Docusate Sodium (Colace) 100 mg BID PO Last administered on 03/06/16 08:40; Admin Dose 100 MG; Start 03/05/16 at 21:00 Diphenhydramine HCl (Benadryl) 25 mg Q6H PRN PO PRURITUS; Start 03/05/16 at 16: 30 Enoxaparin Sodium (Lovenox) 30 mg DAILY SC ; Start 03/06/16 at 12:00; Status Future Hold Pregabalin (Lyrica) 50 mg BID PO Last administered on 03/06/16 08:44; Admin Dose 50 MG; Start 03/05/16 at 21:00 Pantoprazole (Protonix Tab) 40 mg BID@,18 PO Last administered on 03/06/16 05:46; Admin Dose 40 MG; Start 03/05/16 at 18:00 Aspirin (Halfprin) 81 mg DAILY PO Last administered on 03/06/16 08:43; Admin Dose 81 MG; Start 03/06/16 at 09:00 BRYAN TURNER NP Mar 06, 2016 09:26
--- NOTE | 2016-03-06 10:32 | PN ---
DATE: 03/06/2016 CARDIOLOGY FOLLOWUP PROGRESS NOTE SUBJECTIVE: Discussed with the staff. Chart reviewed. The patient is status post surgery, unevent ful. No cardiac complication. Complains of ecchymosis around his scrotum though. The patient ____ _ but confused last night, says he is better today. MEDICATIONS: Reviewed as per medication reconciliation, personally reviewed. PHYSICAL EXAMINATION: VITAL SIGNS: Temperature 98, heart rate of 69, blood pressure 122/65, respiration rate of 19, satur ating 99%. HEENT: Normocephalic, atraumatic. Pupils equal and round. CARDIOVASCULAR: Regular rate and rhythm, systolic murmur. PULMONARY: With no wheezes, no rhonchi. GASTROINTESTINAL: Soft, nontender. No rebound or guarding. EXTREMITIES: With right lower extremity status post surgery with edema. UROLOGICAL: [place] with diffuse ecchymosis. NEUROLOGIC: Awake and alert, responds appropriately. PSYCHIATRIC: Anxious but stable. LABORATORY: WBC of 10.6, hemoglobin 9.2, platelets of 136. Sodium 135, potassium 4.6, BUN of 29, c reatinine 1.18, glucose 361. Albumin is 2.5. ASSESSMENT AND PLAN: 1. Hip fracture status post surgery. 2. Coronary artery disease with history of percutaneous coronary intervention. 3. History of congestive heart failure, currently compensated. 4. Hypertension. 5. History of diabetes. 6. History of chronic obstructive pulmonary disease. RECOMMENDATIONS: We will continue with the postop care. Continue with the current cardiac care inc luding beta blockers. I will ask the aspirin to be resumed as long as okay with the orthopedic surg frandy given his history of coronary artery disease. Dictated By: LORETTA MENDOZA MD AV/VICENTA Conf#: [id number] DID#: [id number] CC: BRYAN TURNER DECORATING AND ASSEMBLY SUPERVISOR;*EndCC*
[2016-03-06] MEDS: SOD CHLORIDE 0.9% 1,000 ML IV SCH (11:40)
[2016-03-06] MEDS ORDERED: ENOXAPARIN 30 MG/0.3 ML SYG SC SCH (12:00)
[2016-03-06] MEDS ORDERED: NPH, HUMAN INSULIN ISOPHANE 3ML VIAL SC ONE (14:30)
[2016-03-06] MEDS ORDERED: CYANOCOBALAMIN 1000 MCG INJ IM ONE (14:30)
[2016-03-06 15:02] LABS: HEMATOCRIT 26.5 % (42.0-52.0); HEMOGLOBIN 8.9 g/dl (14.0-18.0); MEAN CORPUSCULAR HEMOGLOBIN 30.6 pg (29.0-33.0); MEAN CORPUSCULAR HGB CONC 33.4 g/dl (32.0-37.0); MEAN CORPUSCULAR VOLUME 91.8 fl (82.0-101.0); MEAN PLATELET VOLUME 8.5 fl (7.4-10.4); MONOCYTE # 1.3 10^3/ul (0.3-0.9); MONOCYTES % 8.3 % (0.0-11.0); NEUTROPHIL # 13.6 10^3/ul (1.6-7.5); NEUTROPHILS % 85.7 % (39.0-77.0); PLATELET COUNT 184 10^3/UL (140-440); RED BLOOD COUNT 2.89 10^6/ul (4.70-6.10); RED CELL DISTRIBUTION WIDTH 14.9 % (11.5-14.5); UNCORRECTED WBC 15.9 10^3/ul (4.8-10.8); WHITE BLOOD COUNT 15.9 10^3/ul (4.8-10.8)
[2016-03-06 15:22] LABS: CONDITION 1; LH ANALYZER COMMENTS 1
[2016-03-06] MEDS: FAMOTIDINE 20 MG TAB PO SCH (17:25)
[2016-03-06] MEDS ORDERED: metFORMIN 500 MG TAB PO SCH (17:55)
--- NOTE | 2016-03-06 20:07 | CONS ---
Date/Time of Note Date/Time of Note DATE: 03/06/16 TIME: 19:57 Assessment/Plan Assessment/Plan Problems: (1) COPD (chronic obstructive pulmonary disease) Status: Chronic Comment: Patient with chronic lung disease and smoking history. COPD is the diagnosis mentioned in other progress notes. Please note the chest x-ray is not well commented on. Regardless he should use a more cardioselective beta- phillip for this diagnosis. Qualifiers: Qualified Code: J43.9 - Pulmonary emphysema, unspecified emphysema type (2) Iron deficiency anemia Status: Chronic Comment: He has an iron deficiency anemia. Will give him IV iron while he is here to help bring this up. He can have an outpatient workup for it after he is stabilized Qualifiers: Qualified Code: D50.9 - Iron deficiency anemia, unspecified iron deficiency anemia type (3) Status post angioplasty with stent Onset Date: ~ 07/2014 Status: Chronic Comment: This is noted. He is presently on anticoagulant using Lovenox and should return to his Plavix shortly. Please note he is more than 18 months out from the initial placement of the drug eluting stent (4) Hyperlipidemia Status: Chronic Comment: He remains on statin therapy for this Qualifiers: Qualified Code: E78.00 - Pure hypercholesterolemia (5) Dysthymia Status: Chronic Comment: Remains on his SSRI drugs for this diagnosis (6) Tobacco abuse disorder Status: Chronic Comment: He has been counseled about discontinuation. Reports he is recently discontinued although the degree of this is to be determined (7) Systolic and diastolic CHF, chronic Status: Chronic Comment: Given the findings on echocardiography what he reports it may be an appropriate idea to consider some adjustments to his regimen. Continuation of the Lasix I believe is fully appropriate however given his lung disease more cardioselective beta-phillip would probably be appropriate here such as metoprolol. In addition increase in the usage of the dosage of lisinopril would be useful here. Furthermore usage of alpha blockade and discontinuation of the fluid retaining dihydropyridine would also be appropriate. (8) Essential hypertension Status: Chronic Comment: Adjust medication (9) Hyperglycemia due to type 2 diabetes mellitus Status: Acute Comment: His admission A1c was not all it could be. Will adjust his regimen around to try and get better control. Please note I suspect he has been having some hypoglycemic reactions and as such trying to simplify this regimen to 1 where we get better controlled with without the swings of sugar would be most appropriate Qualifiers: Qualified Code: E11.65 - Type 2 diabetes mellitus with hyperglycemia, with long-term current use of insulin (10) Renal insufficiency Status: Acute Comment: His degree of renal insufficiency is not entirely clear. I think that he may have some but it may not be as severe. I will check 24 urine for total protein and creatinine clearance Consultation Date/Type/Reason Admit Date/Time Mar 03, 2016 at 16:16 Date of Consultation: Mar 06, 2016 Type of Consultation: Endocrinology Reason for Consultation Diabetes mellitus type 2 in poor control initially significantly out of control after steroids Referring Provider: BRYAN TURNER NP Hx of Present Illness 75-year-old male normally cared for by Dr. Geovani Hull and by Dr. Edwards. He sustained a fall with fracture of the left hip was admitted on the . On the he underwent ORIF and received Decadron with that. His blood sugar control which should been fair and had admission A1c has gone significantly out of control. The staff is extremely concerned and has requested assistance in trying to get his sugar control brought back. Constitutional: no complaints Eyes: no complaints ENT: no complaints Respiratory: no complaints Cardiovascular: no complaints Gastrointestinal: no complaints Genitourinary: no complaints Musculoskeletal: no complaints Skin: no complaints Endocrine: other (He reports that he does know what a hypoglycemic reaction is however he has had not many of them although that has been since he has been placed on a noncardioselective beta-phillip. He does have intermittent episodes of loss of memory and orientation which she states occurs after meals after his use rapid acting insulin.) Past Medical History Please see problem list; organic heart diseaseLVHsystolic and diastolic dysfunctioncoronary artery disease status post stenting of an ostial LAD lesion using an drug-eluting stent in 2014; diabetes mellitus type 2; hypertension; hyperlipidemia; history of prostate cancer in 2008; dysthymia; tobacco usage; COPD Medical History: cancer, congestive heart failure, coronary artery disease, diabetes, high cholesterol, hypertension Past Surgical History Status post CEA and IOL OU; status post radical prostatectomy Past Surgical Hx: appendectomy Family History Significant Family History: heart disease, diabetes, hypertension Social History Alcohol Use: none Smoking Status: Former smoker (Recently quit smoking) Drug Use: none Exam/Review of Systems Vital Signs Vitals Vital Signs Date Time Temp Pulse Resp B/P Pulse Ox O2 Delivery O2 Flow Rate FiO2 03/06/16 16:36 2.0 03/06/16 07:33 98.0 69 19 122/65 99 03/05/16 19:00 Nasal Cannula Intake and Output 03/05/16 03/05/16 03/06/16 15:00 23:00 07:00 Intake Total 1450 ml 750 ml 2200 ml Output Total 300 ml 1200 ml Balance 1450 ml 450 ml 1000 ml Exam Constitutional: alert, oriented Eyes: EOMI, nl conjunctiva, nl lids, nl sclera, other (Fundi not visualized) Neck: non-tender, supple Respiratory: clear to auscultation, normal air movement Cardiovascular: nl pulses, regular rate and rhythm Gastrointestinal: nl liver, spleen, non-tender, soft Extremities: normal pulses Results Result Diagram: 03/06/16 1455 03/06/16 0439 Results 24 hrs Laboratory Tests Test 03/06/16 03:46 03/06/16 04:39 03/06/16 08:38 03/06/16 12:14 Urine Bacteria FEW Urine Bilirubin NEGATIVE Urine Clarity CLEAR Urine Color LT. YELLOW Urine Glucose >=1000 Urine Hemoglobin TRACE Urine Ketones TRACE Urine Leukocyte Esterase TRACE H Urine Microscopic RBC 0-2 Urine Microscopic WBC 2-5 Urine Nitrite NEGATIVE Urine Specific [place] 1.010 Urine Total Protein NEGATIVE Urine Urobilinogen 0.2 E.U./dL Urine pH 5.5 Alanine Aminotransferase (ALT/SGPT) 26 Albumin 2.5 L Albumin/Globulin Ratio 1.19 Alkaline Phosphatase 49 Anion Gap 11 Aspartate Amino Transf (AST/SGOT) 25 Basophils # 0.0 Basophils % 0.0 Blood Urea Nitrogen 29 H Calcium Level 8.2 L Carbon Dioxide Level 28 Chloride Level 101 Creatinine 1.18 Direct Bilirubin 0.00 Eosinophils # 0.0 Eosinophils % 0.0 Globulin 2.10 Glucose Level 351 #H Hematocrit 26.5 #L Hemoglobin 9.2 L Indirect Bilirubin 0.9 Lymphocytes # 0.4 L Lymphocytes % 4.1 L Magnesium Level 2.1 Mean Corpuscular Hemoglobin 31.5 Mean Corpuscular Hemoglobin Concent 34.6 Mean Corpuscular Volume 90.9 Mean Platelet Volume 8.9 Monocytes # 0.8 Monocytes % 8.0 Neutrophils # 9.3 H Neutrophils % 87.9 H Nucleated Red Blood Cells # 0.0 Nucleated Red Blood Cells % 0.0 Phosphorus Level 4.1 Platelet Count 136 L Potassium Level 4.6 Red Blood Count 2.92 L Red Cell Distribution Width 14.4 Sodium Level 135 Total Bilirubin 0.9 Total Protein 4.6 L White Blood Count 10.6 Bedside Glucose 403 *H 507 *H Test 03/06/16 13:40 03/06/16 14:55 03/06/16 17:22 03/06/16 19:30 Bedside Glucose 594 *H 131 102 Basophils # 0.0 Basophils % 0.0 Blood Morphology Comment Eosinophils # 0.0 Eosinophils % 0.0 Hematocrit 26.5 L Hemoglobin 8.9 L Lymphocytes # 1.0 Lymphocytes % 6.0 L Mean Corpuscular Hemoglobin 30.6 Mean Corpuscular Hemoglobin Concent 33.4 Mean Corpuscular Volume 91.8 Mean Platelet Volume 8.5 Monocytes # 1.3 H Monocytes % 8.3 Neutrophils # 13.6 H Neutrophils % 85.7 H Nucleated Red Blood Cells # 0.0 Nucleated Red Blood Cells % 0.0 Platelet Count 184 # Red Blood Count 2.89 L Red Cell Distribution Width 14.9 H White Blood Count 15.9 #H Medications Medications Current Medications Ondansetron HCl (Zofran Inj) 4 mg Q6H PRN IV NAUSEA AND/OR VOMITING Last administered on 03/03/16 22:34; Admin Dose 4 MG; Start 03/03/16 at 19:00 Acetaminophen (Tylenol Tab) 650 mg Q6H PRN PO PAIN LEVEL 1-3 OR FEVER; Start at 19:00 Acetaminophen/ Hydrocodone Bitart ([place] (5/325)) 1 tab Q6H PRN PO MODERATE PAIN LEVEL 4-6 Last administered on 03/04/16 17:50; Admin Dose 1 TAB; Start at 19:00 Morphine Sulfate (morphine) 2 mg Q4H PRN IV SEVERE PAIN LEVEL 7-10 Last administered on 03/04/16 08:25; Admin Dose 2 MG; Start 03/03/16 at 19:00 Docusate Sodium (Colace) 100 mg Q12H PRN PO CONSTIPATION; Start 03/03/16 at 19: 00 Zolpidem Tartrate (Ambien) 5 mg QHS PRN PO SLEEP Last administered on 20:52; Admin Dose 5 MG; Start 03/03/16 at 19:00 Miscellaneous Information 1 ea NOTE XX ; Start 03/03/16 at 19:00 Glucose (Glutose) 15 gm Q15M PRN PO DECREASED GLUCOSE; Start 03/03/16 at 19:00 Glucose (Glutose) 22.5 gm Q15M PRN PO DECREASED GLUCOSE; Start 03/03/16 at 19: 00 Dextrose (D50w Syringe) 25 ml Q15M PRN IV DECREASED GLUCOSE; Start 03/03/16 at 19:00 Dextrose (D50w Syringe) 50 ml Q15M PRN IV DECREASED GLUCOSE; Start 03/03/16 at 19:00 Glucagon (Glucagen) 1 mg Q15M PRN IM DECREASED GLUCOSE; Start 03/03/16 at 19:00 Glucose (Glutose) 15 gm Q15M PRN BUCCAL DECREASED GLUCOSE; Start 03/03/16 at 19 :00 Cyanocobalamin (Vitamin B12) 100 mcg DAILY PO Last administered on 03/06/16 08 :45; Admin Dose 100 MCG; Start 03/04/16 at 09:00; Status Future Hold Escitalopram Oxalate (Lexapro) 10 mg DAILY PO Last administered on 03/06/16 08 :43; Admin Dose 10 MG; Start 03/04/16 at 09:00 Furosemide 40 mg 40 mg DAILY@06 PO Last administered on 03/06/16 05:47; Admin Dose 40 MG; Start 03/04/16 at 06:00 Sodium Chloride 1,000 ml @ 75 mls/hr [id number] IV Last administered on 22:59; Admin Dose 75 MLS/HR; Start 03/05/16 at 09:00 Lactated Ringer's (Lr) 1,000 ml @ 125 mls/hr Q8H IV Last administered on 18:19; Admin Dose 125 MLS/HR; Start 03/05/16 at 16:25 Tramadol HCl (Ultram) 50 mg Q6 PO Last administered on 03/06/16 17:26; Admin Dose 50 MG; Start 03/05/16 at 12:00; Stop 03/08/16 at 11:59 Oxycodone HCl (Roxicodone) 5 mg Q4H PRN PO PAIN LEVEL 1-3; Start 03/05/16 at 16 :30 Oxycodone HCl (Roxicodone) 10 mg Q4H PRN PO PAIN LEVEL 4-7; Start 03/05/16 at 16:30 Hydromorphone HCl (Dilaudid) 1 mg Q3H PRN IV PAIN LEVEL 8-10; Start 03/05/16 at 16:30 Ondansetron HCl (Zofran Inj) 4 mg Q6H PRN IV NAUSEA AND/OR VOMITING; Start at 16:30 Bisacodyl (Dulcolax Supp) 10 mg Q12H PRN [place] CONSTIPATION; Start 03/05/16 at 16: 30 Magnesium Hydroxide (Milk Of Mag) 30 ml BID PRN PO CONSTIPATION; Start at 16:30 Sodium Biphosphate/ Sodium Phosphate (Fleet Enema) 133 ml DAILY PRN [place] CONSTIPATION; Start 03/05/16 at 16:30 Docusate Sodium (Colace) 100 mg BID PO Last administered on 03/06/16 08:40; Admin Dose 100 MG; Start 03/05/16 at 21:00 Diphenhydramine HCl (Benadryl) 25 mg Q6H PRN PO PRURITUS; Start 03/05/16 at 16: 30 Enoxaparin Sodium (Lovenox) 30 mg DAILY SC ; Start 03/06/16 at 12:00; Status Future Hold Pregabalin (Lyrica) 50 mg BID PO Last administered on 03/06/16 08:44; Admin Dose 50 MG; Start 03/05/16 at 21:00 Pantoprazole (Protonix Tab) 40 mg BID@06,18 PO Last administered on 03/06/16 17:25; Admin Dose 40 MG; Start 03/05/16 at 18:00 Aspirin (Halfprin) 81 mg DAILY PO Last administered on 03/06/16 08:43; Admin Dose 81 MG; Start 03/06/16 at 09:00 Famotidine (Pepcid) 20 mg DAILY PO Last administered on 03/06/16 17:25; Admin Dose 20 MG; Start 03/06/16 at 15:32 Insulin Glargine (Lantus) 16 unit QAM SC ; Start 03/07/16 at 09:00 Lisinopril (Zestril) 40 mg BID PO ; Start 03/07/16 at 09:00 Metoprolol Succinate (Toprol Xl) 25 mg BID PO ; Start 03/06/16 at 21:00 Doxazosin Mesylate (Cardura) 1 mg HS PO ; Start 03/06/16 at 21:00 IMMANUEL MAXWELL MD Mar 06, 2016 20:07
[2016-03-06 20:19] VITALS: BP 100/64; RESP 20
[2016-03-06] MEDS ORDERED: DOXAZOSIN 1 MG TAB PO SCH (21:00)
[2016-03-06] MEDS ORDERED: INSULIN GLARGINE [LANtus] 3 ML PEN SC SCH (21:00)
[2016-03-06] MEDS: METOPROLOL (XL) 25 MG TAB PO SCH (21:21)
[2016-03-06 21:25] VITALS: BP 125/75; PULSE 66; RESP 18
[2016-03-06] MEDS: SOD FERRIC GLUC COMPLX 125 MG in SOD CHLORIDE 0.9% 100 ML IVPB SCH (22:06)
[2016-03-06] MEDS: HYDROCODONE/APAP (5/325) TAB PO PRN (22:10)
[2016-03-07] MEDS: LACTATED RINGER'S 1,000 ML IV SCH ×4 (00:25→23:50)
[2016-03-07] MEDS: traMADol 50 MG TAB PO SCH ×5 (00:40→23:54)
[2016-03-07] MEDS: SOD CHLORIDE 0.9% 1,000 ML IV SCH ×2 (00:41→14:20)
[2016-03-07 01:10] VITALS: BP 110/68; PULSE 62; RESP 18
[2016-03-07] MEDS: PANTOPRAZOLE (EC) 40 MG TAB PO SCH ×2 (05:16→17:58)
[2016-03-07] MEDS: FUROSEMIDE 40 MG TAB PO SCH (05:16)
[2016-03-07 05:20] VITALS: BP 101/56; PULSE 55; RESP 18
[2016-03-07 05:37] LABS: HEMATOCRIT 23.2 % (42.0-52.0); MEAN CORPUSCULAR VOLUME 91.9 fl (82.0-101.0); RED BLOOD COUNT 2.52 10^6/ul (4.70-6.10); UNCORRECTED WBC 9.8 10^3/ul (4.8-10.8); WHITE BLOOD COUNT 9.8 10^3/ul (4.8-10.8)
[2016-03-07 05:38] LABS: EOSINOPHILS # 0.1 10^3/ul (0.0-0.5); EOSINOPHILS % 0.9 % (0.0-7.0); LYMPHOCYTES # 0.8 10^3/ul (0.8-2.9); LYMPHOCYTES % 8.6 % (15.0-51.0); MEAN CORPUSCULAR HEMOGLOBIN 31.6 pg (29.0-33.0); MEAN CORPUSCULAR HGB CONC 34.4 g/dl (32.0-37.0); MEAN PLATELET VOLUME 8.5 fl (7.4-10.4); MONOCYTE # 1.1 10^3/ul (0.3-0.9); MONOCYTES % 10.8 % (0.0-11.0); NEUTROPHIL # 7.8 10^3/ul (1.6-7.5); NEUTROPHILS % 79.7 % (39.0-77.0); PLATELET COUNT 158 10^3/UL (140-440); RED CELL DISTRIBUTION WIDTH 14.4 % (11.5-14.5)
[2016-03-07 05:59] LABS: MAGNESIUM 2.2 mg/dl (1.7-2.5)
[2016-03-07 06:03] LABS: ALBUMIN 2.5 g/dl (3.3-4.9)
[2016-03-07 06:04] LABS: POTASSIUM 3.7 mmol/L (3.5-5.1)
[2016-03-07 06:05] LABS: CREATININE 1.34 mg/dl (0.61-1.24)
[2016-03-07 06:06] LABS: ALBUMIN/GLOBULIN RATIO 1.19; BILIRUBIN,INDIRECT 0.8 mg/dl (0-1.1); BILIRUBIN,TOTAL 0.8 mg/dl (0.2-1.3); TOTAL PROTEIN 4.6 g/dl (6.1-8.1)
[2016-03-07 06:07] LABS: CALCIUM 8.1 mg/dl (8.4-10.2)
[2016-03-07 06:34] LABS: CONDITION 1; LH ANALYZER COMMENTS 1
[2016-03-07] MEDS: MAGNESIUM HYDROXIDE 30ML CUP PO PRN (07:35)
[2016-03-07 08:19] VITALS: BP 120/72; RESP 20
[2016-03-07] MEDS ORDERED: BISACODYL (EC) 5 MG TAB PO ONE (08:30)
--- NOTE | 2016-03-07 08:34 | CONS ---
Date/Time of Note Date/Time of Note DATE: 03/07/16 TIME: 08:30 Assessment/Plan Assessment/Plan Chief Complaint/Hosp Course 75-year-old male normally cared for by Dr. Geovani Hull and by Dr. Edwards. He sustained a fall with fracture of the left hip was admitted on the . On the he underwent ORIF and received Decadron with that. His blood sugar control which should been fair and had admission A1c has gone significantly out of control. The staff is extremely concerned and has requested assistance in trying to get his sugar control brought back. Problems: (1) Steroid-induced hyperglycemia Status: Acute Comment: His sugars have come down nicely with the aggressive intervention. We will continue to work with him expect modestly higher sugars today during the day and the roughly 200 range we will continue to adjust. (2) Hyperglycemia due to type 2 diabetes mellitus Status: Acute Comment: His diabetic control as an outpatient was marginal. He would actually do better to have somewhat cleaned up regimen as noted in my initial consult note. 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 Please note the change in medications amlodipine in this setting would be a drug a fourth choice (4) Systolic and diastolic CHF, chronic Status: Chronic Comment: He is on appropriate cardioselective beta-phillip; ALEJANDRA inhibitor; diuretic; alpha phillip. (5) Tobacco abuse disorder Status: Chronic Comment: He quit smoking 3-4 months ago. I believe he does have some smoking- related lung disease and hence the choice for the cardioselective beta-phillip (6) COPD (chronic obstructive pulmonary disease) Status: Chronic Comment: As noted above Qualifiers: COPD type: emphysema Emphysema type: unspecified Qualified Code: J43.9 - Pulmonary emphysema, unspecified emphysema type (7) Iron deficiency anemia Status: Chronic Comment: Orthopedist is opted to transfuse him today I however would still continue to give the iron replacement therapy Qualifiers: Iron deficiency anemia type: unspecified iron deficiency Qualified Code: D50.9 - Iron deficiency anemia, unspecified iron deficiency anemia type (8) Renal insufficiency Status: Acute Comment: Pending at this time as the completion of the 24 urine for total protein and creatinine clearance we have a very specific idea of where we are with his renal function please note I would not stop his metformin at this time Consultation Date/Type/Reason Admit Date/Time Mar 03, 2016 at 16:16 Initial Consult Date 03/06/16 Type of Consultation: Endocrinology Reason for Consultation Hyperglycemia in a patient with a baseline A1c of above 9 and having received steroids with orthopedics after surgery Referring Provider: BRYAN TURNER [employer] EXPORT COORDINATOR 24 HR Interval Summary Free Text/Dictation Patient reports that he is feeling okay but it is unclear on why he is receiving a transfusion. He has had constipation without a bowel movement for 5 days. Constitutional: no complaints (Denies fever chills or sweats) Detailed Summary Respiratory: no complaints (Denies shortness of breath) Cardiovascular: no complaints (Denies chest pain palpitations or squeezing in the chest) Gastrointestinal: constipation Genitourinary: no complaints (Reports multiple symptoms that have been present since he had his prostate surgery 8 years ago) Exam/Review of Systems Vital Signs Vitals Vital Signs Date Time Temp Pulse Resp B/P Pulse Ox O2 Delivery O2 Flow Rate FiO2 03/07/16 08:19 97.8 76 20 120/72 90 03/07/16 06:10 2.0 03/07/16 05:20 Room Air Intake and Output 03/06/16 03/06/16 03/07/16 15:00 23:00 07:00 Intake Total 150 ml 1380 ml 600 ml Output Total 1500 ml 400 ml Balance 150 ml -120 ml 200 ml Exam Constitutional: alert, oriented Respiratory: clear to auscultation, normal air movement Cardiovascular: nl pulses, regular rate and rhythm Gastrointestinal: nl liver, spleen, non-tender, soft Results Result Diagram: 03/07/16 0430 03/07/16 0430 Results 24 hrs Laboratory Tests Test 03/06/16 08:38 03/06/16 12:14 03/06/16 13:40 03/06/16 14:55 Bedside Glucose 403 *H 507 *H 594 *H Basophils # 0.0 Basophils % 0.0 Blood Morphology Comment Eosinophils # 0.0 Eosinophils % 0.0 Hematocrit 26.5 L Hemoglobin 8.9 L Lymphocytes # 1.0 Lymphocytes % 6.0 L Mean Corpuscular Hemoglobin 30.6 Mean Corpuscular Hemoglobin Concent 33.4 Mean Corpuscular Volume 91.8 Mean Platelet Volume 8.5 Monocytes # 1.3 H Monocytes % 8.3 Neutrophils # 13.6 H Neutrophils % 85.7 H Nucleated Red Blood Cells # 0.0 Nucleated Red Blood Cells % 0.0 Platelet Count 184 # Red Blood Count 2.89 L Red Cell Distribution Width 14.9 H White Blood Count 15.9 #H Test 03/06/16 17:22 03/06/16 19:30 03/06/16 21:10 03/07/16 01:07 Bedside Glucose 131 102 142 157 Test 03/07/16 04:30 03/07/16 08:07 Alanine Aminotransferase (ALT/SGPT) 25 Albumin 2.5 L Albumin/Globulin Ratio 1.19 Alkaline Phosphatase 50 Anion Gap 11 Aspartate Amino Transf (AST/SGOT) 35 Basophils # 0.0 Basophils % 0.0 Blood Morphology Comment Blood Urea Nitrogen 35 H Calcium Level 8.1 L Carbon Dioxide Level 27 Chloride Level 97 Creatinine 1.34 H Direct Bilirubin 0.00 Eosinophils # 0.1 Eosinophils % 0.9 Globulin 2.10 Glucose Level 163 # Hematocrit 23.2 L Hemoglobin 8.0 L Indirect Bilirubin 0.8 Lymphocytes # 0.8 Lymphocytes % 8.6 L Magnesium Level 2.2 Mean Corpuscular Hemoglobin 31.6 Mean Corpuscular Hemoglobin Concent 34.4 Mean Corpuscular Volume 91.9 Mean Platelet Volume 8.5 Monocytes # 1.1 H Monocytes % 10.8 Neutrophils # 7.8 H Neutrophils % 79.7 H Nucleated Red Blood Cells # 0.0 Nucleated Red Blood Cells % 0.0 Phosphorus Level 3.0 Platelet Count 158 Potassium Level 3.7 Red Blood Count 2.52 L Red Cell Distribution Width 14.4 Sodium Level 131 L Total Bilirubin 0.8 Total Protein 4.6 L White Blood Count 9.8 # Bedside Glucose 275 H Medications Medications Current Medications Ondansetron HCl (Zofran Inj) 4 mg Q6H PRN IV NAUSEA AND/OR VOMITING Last administered on 03/03/16t 22:34; Admin Dose 4 MG; Start 03/03/16 at 19:00 Acetaminophen (Tylenol Tab) 650 mg Q6H PRN PO PAIN LEVEL 1-3 OR FEVER; Start at 19:00 Acetaminophen/ Hydrocodone Bitart ([place] (5/325)) 1 tab Q6H PRN PO MODERATE PAIN LEVEL 4-6 Last administered on 03/06/16 22:10; Admin Dose 1 TAB; Start at 19:00 Morphine Sulfate (morphine) 2 mg Q4H PRN IV SEVERE PAIN LEVEL 7-10 Last administered on 03/04/16 08:25; Admin Dose 2 MG; Start 03/03/16 at 19:00 Docusate Sodium (Colace) 100 mg Q12H PRN PO CONSTIPATION; Start 03/03/16 at 19: 00 Zolpidem Tartrate (Ambien) 5 mg QHS PRN PO SLEEP Last administered on 20:52; Admin Dose 5 MG; Start 03/03/16 at 19:00 Miscellaneous Information 1 ea NOTE XX ; Start 03/03/16 at 19:00 Glucose (Glutose) 15 gm Q15M PRN PO DECREASED GLUCOSE; Start 03/03/16 at 19:00 Glucose (Glutose) 22.5 gm Q15M PRN PO DECREASED GLUCOSE; Start 03/03/16 at 19: 00 Dextrose (D50w Syringe) 25 ml Q15M PRN IV DECREASED GLUCOSE; Start 03/03/16 at 19:00 Dextrose (D50w Syringe) 50 ml Q15M PRN IV DECREASED GLUCOSE; Start 03/03/16 at 19:00 Glucagon (Glucagen) 1 mg Q15M PRN IM DECREASED GLUCOSE; Start 03/03/16 at 19:00 Glucose (Glutose) 15 gm Q15M PRN BUCCAL DECREASED GLUCOSE; Start 03/03/16 at 19 :00 Cyanocobalamin (Vitamin B12) 100 mcg DAILY PO Last administered on 03/06/16 08 :45; Admin Dose 100 MCG; Start 03/04/16 at 09:00; Status Future Hold Escitalopram Oxalate (Lexapro) 10 mg DAILY PO Last administered on 03/06/16 08 :43; Admin Dose 10 MG; Start 03/04/16 at 09:00 Furosemide 40 mg 40 mg DAILY@06 PO Last administered on 03/07/16 05:16; Admin Dose 40 MG; Start 03/04/16 at 06:00 Sodium Chloride 1,000 ml @ 75 mls/hr [id number] IV Last administered on 22:59; Admin Dose 75 MLS/HR; Start 03/05/16 at 09:00 Lactated Ringer's (Lr) 1,000 ml @ 125 mls/hr Q8H IV Last administered on 18:19; Admin Dose 125 MLS/HR; Start 03/05/16 at 16:25 Tramadol HCl (Ultram) 50 mg Q6 PO Last administered on 03/07/16 05:15; Admin Dose 50 MG; Start 03/05/16 at 12:00; Stop 03/08/16 at 11:59 Oxycodone HCl (Roxicodone) 5 mg Q4H PRN PO PAIN LEVEL 1-3; Start 03/05/16 at 16 :30 Oxycodone HCl (Roxicodone) 10 mg Q4H PRN PO PAIN LEVEL 4-7; Start 03/05/16 at 16:30 Hydromorphone HCl (Dilaudid) 1 mg Q3H PRN IV PAIN LEVEL 8-10; Start 03/05/16 at 16:30 Ondansetron HCl (Zofran Inj) 4 mg Q6H PRN IV NAUSEA AND/OR VOMITING; Start at 16:30 Bisacodyl (Dulcolax Supp) 10 mg Q12H PRN [place] CONSTIPATION; Start 03/05/16 at 16: 30 Magnesium Hydroxide (Milk Of Mag) 30 ml BID PRN PO CONSTIPATION Last administered on 03/07/16 07:35; Admin Dose 30 ML; Start 03/05/16 at 16:30 Sodium Biphosphate/ Sodium Phosphate (Fleet Enema) 133 ml DAILY PRN [place] CONSTIPATION; Start 03/05/16 at 16:30 Docusate Sodium (Colace) 100 mg BID PO Last administered on 03/06/16 21:20; Admin Dose 100 MG; Start 03/05/16 at 21:00 Diphenhydramine HCl (Benadryl) 25 mg Q6H PRN PO PRURITUS; Start 03/05/16 at 16: 30 Enoxaparin Sodium (Lovenox) 30 mg DAILY SC ; Start 03/06/16 at 12:00; Status Future Hold Pregabalin (Lyrica) 50 mg BID PO Last administered on 03/06/16 21:20; Admin Dose 50 MG; Start 03/05/16 at 21:00 Pantoprazole (Protonix Tab) 40 mg BID@06,18 PO Last administered on 03/07/16 05:16; Admin Dose 40 MG; Start 03/05/16 at 18:00 Aspirin (Halfprin) 81 mg DAILY PO Last administered on 03/06/16 08:43; Admin Dose 81 MG; Start 03/06/16 at 09:00 Famotidine (Pepcid) 20 mg DAILY PO Last administered on 03/06/16 17:25; Admin Dose 20 MG; Start 03/06/16 at 15:32 Insulin Glargine (Lantus) 16 unit QAM SC ; Start 03/07/16 at 09:00 Metoprolol Succinate (Toprol Xl) 25 mg BID PO Last administered on 03/06/16 21 :21; Admin Dose 25 MG; Start 03/06/16 at 21:00 Doxazosin Mesylate 1 mg 1 mg HS PO Last administered on 03/06/16 21:21; Admin Dose 1 MG; Start 03/06/16 at 21:00 Ferric Sodium Gluconate Complex/ Sodium Chloride (Ferrlecit/NS) 110 ml @ 100 mls/hr Q24H IVPB Last administered on 03/06/16 22:06; Admin Dose 100 MLS/HR; Start 03/06/16 at 22:00; Stop 03/08/16 at 23:05 Lisinopril (Zestril) 20 mg BID PO ; Start 03/07/16 at 09:00 Furosemide (Lasix) 20 mg ONCE ONCE IV ; Start 03/07/16 at 11:30; Stop 03/07/16 at 11:31 IMMANUEL MAXWELL MD Mar 07, 2016 08:33
[2016-03-07] MEDS ORDERED: AMLODIPINE 2.5 MG TAB PO SCH (09:00)
[2016-03-07] MEDS ORDERED: INSULIN GLARGINE [LANtus] 3 ML PEN SC SCH ×2 (09:00)
[2016-03-07] MEDS: DOCUSATE SODIUM 100 MG CAP PO SCH ×2 (09:00→20:37)
[2016-03-07] MEDS ORDERED: LISINOPRIL 20 MG TAB PO SCH (09:00)
[2016-03-07] MEDS: PREGABALIN 25 MG CAP PO SCH ×2 (09:12→20:43)
[2016-03-07] MEDS: FAMOTIDINE 20 MG TAB PO SCH (09:12)
[2016-03-07] MEDS: METOPROLOL (XL) 25 MG TAB PO SCH ×2 (09:13→20:39)
[2016-03-07] MEDS: ASPIRIN (EC) 81 MG TAB PO SCH (09:13)
[2016-03-07] MEDS: ESCITALOPRAM 10 MG TAB PO SCH (09:13)
[2016-03-07] MEDS: LISINOPRIL 20 MG TAB PO SCH ×2 (09:13→20:38)
[2016-03-07] MEDS: INSULIN ASPART [NOVOLOG] 3 ML PEN SC SCH ×7 (09:22→20:33)
--- NOTE | 2016-03-07 09:28 | PN ---
DATE: 03/07/2016 CARDIOLOGY FOLLOWUP SUBJECTIVE: No new cardiac event. No chest pain or pressure. No palpitation. His hip pain is imp roved. MEDICATIONS: Reviewed as per medication reconciliation, personally reviewed. PHYSICAL EXAMINATION: VITAL SIGNS: Temperature 97.7, heart rate of 55, blood pressure 101/56, respiration rate of 18, sat urating 95%. HEENT: Normocephalic, atraumatic. No acute distress. Pupils equal and round. CARDIOVASCULAR: Regular rate and rhythm, systolic murmur. PULMONARY: With no wheezes or rales. GASTROINTESTINAL: Soft, nontender. EXTREMITIES: With right lower extremity status post surgery, with edema. GENITOURINARY: Scrotum with ecchymosis. NEUROLOGIC: Awake and alert, responds appropriately. PSYCHIATRIC: Appears to be calm and pleasant. LABORATORY: WBC of 9.8, hemoglobin 8, platelets of 158. Sodium 131, potassium 3.7, BUN of 35, crea tinine 1.34, glucose of 163. ASSESSMENT AND PLAN 1. Hip fracture status post surgery. 2. Coronary artery disease, history of myocardial infarction. 3. History of percutaneous coronary intervention of the left anterior descending. 4. Dyslipidemia has improved on . 5. Congestive heart failure secondary to diastolic dysfunction, currently stable. 6. Hypertension, under good control. I will decrease his lisinopril to 20 mg p.o. b.i.d. 7. Diabetes. Follow up with Dr. Hemphill. 8. History of chronic obstructive pulmonary disease. RECOMMENDATIONS: 1. Continue the . 2. Deep vein thrombosis prophylaxis as per internal medicine and ortho team. 3. Diabetic management as per Dr. Hemphill and associates. We will continue with lisinopril and beta phillip. Carvedilol was changed to Toprol by the primary team. Dictated By: LORETTA JEAN-BAPTISTE/VICENTA Conf#: [id number] DID#: [id number]
--- NOTE | 2016-03-07 09:52 | PN ---
Date/Time of Note Date/Time of Note DATE: 03/07/16 TIME: 09:49 Assessment/Plan VTE Prophylaxis VTE Prophylaxis Intervention: SCD's Lines/Catheters IV Catheter Type (from Rust): Saline Lock Urinary Cath still in place: No Assessment/Plan Chief Complaint/Hosp Course 1. Mildly comminuted and displaced right intertrochanteric fracture of the femur. Status post closed reduction and intramedullary rodding on 03/05/2016. Continue pain control. Postoperative care as per orthopedic surgery. Continue physical therapy. 2. Type 2 diabetes mellitus, uncontrolled. Hemoglobin A1c 9.4. Will adjust insulin dosing to obtain optimal blood sugar control. Endocrinology following. 3. Essential hypertension. Continue antihypertensives. Blood pressure fairly well controlled. 4. History of depression. Continue SSRIs. 5. CAD, status post stenting in the past. Continue aspirin. 6. Acute kidney injury. Etiology unclear. Most probably secondary to hemodynamics versus dehydration. Resolved. 7. History of prostate cancer. S/P surgical resection and radiation. 8. Normocytic, normochromic anemia. Underlying iron deficiency. Continue iron supplements. Transfuse PRBCs as needed. 9. Fluid, electrolytes and nutrition. Carbohydrate controlled, low cholesterol diet. 10. DVT prophylaxis. Aspirin and SCDs. 11. Gastrointestinal prophylaxis with histamine 2 receptor blockers. PLAN: Continue physical therapy and occupational therapy. ARU evaluation ongoing. PRBC transfusion as per Orthopedic Surgery. Case discussed with Dr. Thomas. Problems: Subjective 24 Hr Interval Summary Free Text/Dictation Pain well controlled. Blood sugars better controlled. Exam/Review of Systems Vital Signs Vitals Vital Signs Date Time Temp Pulse Resp B/P Pulse Ox O2 Delivery O2 Flow Rate FiO2 03/07/16 08:46 2.0 03/07/16 08:19 97.8 76 20 120/72 90 03/07/16 05:20 Room Air Intake and Output 03/06/16 03/06/16 03/07/16 15:00 23:00 07:00 Intake Total 150 ml 1380 ml 600 ml Output Total 1500 ml 400 ml Balance 150 ml -120 ml 200 ml Exam GENERAL: This is a well-built, well-nourished male patient lying in bed in no apparent distress. HEENT: Head normocephalic and atraumatic. Eyes: Anicteric sclerae. Conjunctivae clear. ENT: Nasal septum is midline. Oral mucosa is dry. NECK: Supple. No JVD noticed. RESPIRATORY: Bilaterally clear to auscultation. No adventitious breath sounds heard. No use of accessory muscles of respiration. CARDIAC: Regular rate and rhythm, bradycardia. ABDOMEN: Soft, nontender and nondistended. Bowel sounds positive in all 4 quadrants. GENITOURINARY: The patient has a Ch catheter in place. EXTREMITIES: No cyanosis, no clubbing, no edema. Peripheral pulses palpable. Right hip surgical dressing. NEUROLOGIC: The patient is awake, alert and oriented. Cranial nerves are grossly intact. Results Result Diagram: 03/07/16 0430 03/07/16 0430 Results 24 hrs Laboratory Tests Test 03/06/16 12:14 03/06/16 13:40 03/06/16 14:55 03/06/16 17:22 Bedside Glucose 507 *H 594 *H 131 Basophils # 0.0 Basophils % 0.0 Blood Morphology Comment Eosinophils # 0.0 Eosinophils % 0.0 Hematocrit 26.5 L Hemoglobin 8.9 L Lymphocytes # 1.0 Lymphocytes % 6.0 L Mean Corpuscular Hemoglobin 30.6 Mean Corpuscular Hemoglobin Concent 33.4 Mean Corpuscular Volume 91.8 Mean Platelet Volume 8.5 Monocytes # 1.3 H Monocytes % 8.3 Neutrophils # 13.6 H Neutrophils % 85.7 H Nucleated Red Blood Cells # 0.0 Nucleated Red Blood Cells % 0.0 Platelet Count 184 # Red Blood Count 2.89 L Red Cell Distribution Width 14.9 H White Blood Count 15.9 #H Test 03/06/16 19:30 03/06/16 21:10 03/07/16 01:07 03/07/16 04:30 Bedside Glucose 102 142 157 Alanine Aminotransferase (ALT/SGPT) 25 Albumin 2.5 L Albumin/Globulin Ratio 1.19 Alkaline Phosphatase 50 Anion Gap 11 Aspartate Amino Transf (AST/SGOT) 35 Basophils # 0.0 Basophils % 0.0 Blood Morphology Comment Blood Urea Nitrogen 35 H Calcium Level 8.1 L Carbon Dioxide Level 27 Chloride Level 97 Creatinine 1.34 H Direct Bilirubin 0.00 Eosinophils # 0.1 Eosinophils % 0.9 Globulin 2.10 Glucose Level 163 # Hematocrit 23.2 L Hemoglobin 8.0 L Indirect Bilirubin 0.8 Lymphocytes # 0.8 Lymphocytes % 8.6 L Magnesium Level 2.2 Mean Corpuscular Hemoglobin 31.6 Mean Corpuscular Hemoglobin Concent 34.4 Mean Corpuscular Volume 91.9 Mean Platelet Volume 8.5 Monocytes # 1.1 H Monocytes % 10.8 Neutrophils # 7.8 H Neutrophils % 79.7 H Nucleated Red Blood Cells # 0.0 Nucleated Red Blood Cells % 0.0 Phosphorus Level 3.0 Platelet Count 158 Potassium Level 3.7 Red Blood Count 2.52 L Red Cell Distribution Width 14.4 Sodium Level 131 L Total Bilirubin 0.8 Total Protein 4.6 L White Blood Count 9.8 # Test 03/07/16 08:07 Bedside Glucose 275 H Medications Medications Current Medications Ondansetron HCl (Zofran Inj) 4 mg Q6H PRN IV NAUSEA AND/OR VOMITING Last administered on 03/03/16 22:34; Admin Dose 4 MG; Start 03/03/16 at 19:00 Acetaminophen (Tylenol Tab) 650 mg Q6H PRN PO PAIN LEVEL 1-3 OR FEVER; Start at 19:00 Acetaminophen/ Hydrocodone Bitart ([place] (5/325)) 1 tab Q6H PRN PO MODERATE PAIN LEVEL 4-6 Last administered on 03/06/16 22:10; Admin Dose 1 TAB; Start at 19:00 Morphine Sulfate (morphine) 2 mg Q4H PRN IV SEVERE PAIN LEVEL 7-10 Last administered on 03/04/16 08:25; Admin Dose 2 MG; Start 03/03/16 at 19:00 Docusate Sodium (Colace) 100 mg Q12H PRN PO CONSTIPATION; Start 03/03/16 at 19: 00 Zolpidem Tartrate (Ambien) 5 mg QHS PRN PO SLEEP Last administered on 20:52; Admin Dose 5 MG; Start 03/03/16 at 19:00 Miscellaneous Information 1 ea NOTE XX ; Start 03/03/16 at 19:00 Glucose (Glutose) 15 gm Q15M PRN PO DECREASED GLUCOSE; Start 03/03/16 at 19:00 Glucose (Glutose) 22.5 gm Q15M PRN PO DECREASED GLUCOSE; Start 03/03/16 at 19: 00 Dextrose (D50w Syringe) 25 ml Q15M PRN IV DECREASED GLUCOSE; Start 03/03/16 at 19:00 Dextrose (D50w Syringe) 50 ml Q15M PRN IV DECREASED GLUCOSE; Start 03/03/16 at 19:00 Glucagon (Glucagen) 1 mg Q15M PRN IM DECREASED GLUCOSE; Start 03/03/16 at 19:00 Glucose (Glutose) 15 gm Q15M PRN BUCCAL DECREASED GLUCOSE; Start 03/03/16 at 19 :00 Cyanocobalamin (Vitamin B12) 100 mcg DAILY PO Last administered on 03/06/16 08 :45; Admin Dose 100 MCG; Start 03/04/16 at 09:00; Status Future Hold Escitalopram Oxalate (Lexapro) 10 mg DAILY PO Last administered on 03/07/16 09 :13; Admin Dose 10 MG; Start 03/04/16 at 09:00 Furosemide 40 mg 40 mg DAILY@06 PO Last administered on 03/07/16 05:16; Admin Dose 40 MG; Start 03/04/16 at 06:00 Sodium Chloride 1,000 ml @ 75 mls/hr [id number] IV Last administered on 22:59; Admin Dose 75 MLS/HR; Start 03/05/16 at 09:00 Lactated Ringer's (Lr) 1,000 ml @ 125 mls/hr Q8H IV Last administered on 18:19; Admin Dose 125 MLS/HR; Start 03/05/16 at 16:25 Tramadol HCl (Ultram) 50 mg Q6 PO Last administered on 03/07/16 05:15; Admin Dose 50 MG; Start 03/05/16 at 12:00; Stop 03/08/16 at 11:59 Oxycodone HCl (Roxicodone) 5 mg Q4H PRN PO PAIN LEVEL 1-3; Start 03/05/16 at 16 :30 Oxycodone HCl (Roxicodone) 10 mg Q4H PRN PO PAIN LEVEL 4-7; Start 03/05/16 at 16:30 Hydromorphone HCl (Dilaudid) 1 mg Q3H PRN IV PAIN LEVEL 8-10; Start 03/05/16 at 16:30 Ondansetron HCl (Zofran Inj) 4 mg Q6H PRN IV NAUSEA AND/OR VOMITING; Start at 16:30 Bisacodyl (Dulcolax Supp) 10 mg Q12H PRN [place] CONSTIPATION; Start 03/05/16 at 16: 30 Magnesium Hydroxide (Milk Of Mag) 30 ml BID PRN PO CONSTIPATION Last administered on 03/07/16 07:35; Admin Dose 30 ML; Start 03/05/16 at 16:30 Sodium Biphosphate/ Sodium Phosphate (Fleet Enema) 133 ml DAILY PRN [place] CONSTIPATION; Start 03/05/16 at 16:30 Docusate Sodium (Colace) 100 mg BID PO Last administered on 03/06/16 21:20; Admin Dose 100 MG; Start 03/05/16 at 21:00 Diphenhydramine HCl (Benadryl) 25 mg Q6H PRN PO PRURITUS; Start 03/05/16 at 16: 30 Enoxaparin Sodium (Lovenox) 30 mg DAILY SC ; Start 03/06/16 at 12:00; Status Future Hold Pregabalin (Lyrica) 50 mg BID PO Last administered on 03/07/16 09:12; Admin Dose 50 MG; Start 03/05/16 at 21:00 Pantoprazole (Protonix Tab) 40 mg BID@06,18 PO Last administered on 03/07/16 05:16; Admin Dose 40 MG; Start 03/05/16 at 18:00 Aspirin (Halfprin) 81 mg DAILY PO Last administered on 03/07/16 09:13; Admin Dose 81 MG; Start 03/06/16 at 09:00 Famotidine (Pepcid) 20 mg DAILY PO Last administered on 03/07/16 09:12; Admin Dose 20 MG; Start 03/06/16 at 15:32 Metoprolol Succinate 25 mg 25 mg BID PO Last administered on 03/07/16 09:13; Admin Dose 25 MG; Start 03/06/16 at 21:00 Ferric Sodium Gluconate Complex/ Sodium Chloride (Ferrlecit/NS) 110 ml @ 100 mls/hr Q24H IVPB Last administered on 03/06/16 22:06; Admin Dose 100 MLS/HR; Start 03/06/16 at 22:00; Stop 03/08/16 at 23:05 Lisinopril (Zestril) 20 mg BID PO Last administered on 03/07/16 09:13; Admin Dose 20 MG; Start 03/07/16 at 09:00 Furosemide (Lasix) 20 mg ONCE ONCE IV ; Start 03/07/16 at 11:30; Stop 03/07/16 at 11:31 Doxazosin Mesylate (Cardura) 2 mg DAILY@21 PO ; Start 03/07/16 at 21:00 Insulin Glargine (Lantus) 18 unit QAM SC Last administered on 03/07/16t 09:21; Admin Dose 18 UNIT; Start 03/07/16 at 09:00 BRYAN TURNER NP Mar 07, 2016 09:52
--- NOTE | 2016-03-07 11:03 | PN ---
Date/Time of Note Date/Time of Note DATE: 03/07/16 TIME: 11:00 Assessment/Plan Lines/Catheters IV Catheter Type (from Nrsg): Saline Lock Rao in Place (from Nrsg): No Assessment/Plan Assessment/Plan Stable POD #2, s/p closed reduction, IM rodding, right IT fx -pain meds -hold lovenox -H&H low. Transfuse 2 units PRBCs -OOB with PT -urology consult given difficulty with urination -check AM labs -d/c planning. Will plan to transfer to ARU tomorrow Subjective 24 Hr Interval Summary Doing well. No acute overnight events. Mild pain. Significant ecchymosis secondary to Plavix. Having difficulty with urination since rao was removed. Completed PT yesterday. Accepted for transfer to ARU. H&H low, will likely require transfusion. Exam/Review of Systems Vital Signs Vitals Vital Signs Date Time Temp Pulse Resp B/P Pulse Ox O2 Delivery O2 Flow Rate FiO2 03/07/16 08:46 2.0 03/07/16 08:19 97.8 76 20 120/72 90 03/07/16 05:20 Room Air Intake and Output 03/06/16 03/06/16 03/07/16 15:00 23:00 07:00 Intake Total 150 ml 1380 ml 600 ml Output Total 1500 ml 400 ml Balance 150 ml -120 ml 200 ml Exam Free Text/Dictation Dressing dry Incision clean, dry, and intact without redness or drainage Significant ecchymosis and soft tissue swelling secondary to plavix. No evidence of DVT Significant scrotal swelling and ecchymosis 5/5 Quadriceps, Tibialis Anterior, EHL, Gastroc, Soleus, Peroneals Normal sensation Palpable DT/PT, CR <2 sec No distal edema Results Result Diagram: 03/07/1642903/07/16429 GAIL YEUNG PA-C Mar 07, 2016 11:03
[2016-03-07] MEDS ORDERED: FUROSEMIDE 20 MG INJ IV ONE ×2 (11:30→20:30)
--- NOTE | 2016-03-07 13:27 | CONS ---
DATE OF ADMISSION: 03/03/2016 DATE OF CONSULTATION: 03/07/2016 REQUESTING PHYSICIAN: Dr. De La Rosa Dear Daniel: Thank you for asking me to see this patient in urological consultation. This is a 75-year-old male w ho sustained a mechanical fall, sustained a right hip fracture, and underwent surgery for it. Posto peratively after the Ch catheter was removed, the patient has not been able to urinate. He did h ave his surgery 2 days ago. The patient is known to have a history of prostate cancer. He is statu s post radical prostatectomy and it seems the margins of the specimen was positive; therefore, the p atradha underwent radiation treatment after that. Prior to his fall the patient had been able to uri deyanira; however, sometimes he does have urgency and urgency incontinence and he cannot hold his urine until he reaches the bathroom. PAST MEDICAL HISTORY: The other significant past medical history includes: 1. A history of coronary artery disease, status post stent placement. 2. Cataract surgery. 3. He also has a history of diabetes. 4. Hypertension. ALLERGIES: THE PATIENT HAS NO KNOWN DRUG ALLERGIES. SOCIAL HISTORY: He does not smoke and he does not drink alcohol. REVIEW OF SYSTEMS: Except for what is mentioned above, the review of systems are negative. PRESENT MEDICATIONS: Include: 1. Doxazosin 2 mg daily. 2. Metformin. 3. Insulin. 4. Lisinopril. 5. Ferric sodium gluconate. 6. Metoprolol. 7. Pepcid. 8. Aspirin. 9. Colace. 10. Lyrica. 11. Protonix. 12. He is on oxycodone p.r.n. 13. Dilaudid p.r.n. 14. Dulcolax p.r.n. 15. Milk of Magnesia p.r.n. 16. Tramadol p.r.n. for pain. 17. Lexapro 10 mg daily. 18. Lasix 40 mg daily. PHYSICAL EXAMINATION: GENERAL: Reveals an elderly male. He weighs 75.3 kg. He is 65 inches tall. VITAL SIGNS: Temperature is 97.8, pulse 76, respirations 20, blood pressure 120/72. HEAD AND NECK: Unremarkable. HEART: Regular. ABDOMEN: A little obese. He does have bruising on his abdomen, probably from anticoagulation. EXTERNAL GENITALIA: He had bruising and ecchymosis in the penoscrotal area and that is from his hip fracture and the blood going in the midline down to the scrotum and not going anywhere from there. EXTREMITIES: He is status post right hip surgery, and there is some edema of his thigh, otherwise t he extremities are normal. LABORATORY DATA: His CBC shows a white count of 9.8, hemoglobin 8.0, hematocrit 23.2. BUN is 35, c reatinine 1.34. Sodium 131, potassium is 3.7, chloride 97, CO2 27. The urinalysis shows a trace of occult blood and it shows also sugar in it. IMPRESSION: Urinary retention postop after hip surgery. The patient is status post radical prostat ectomy and radiation to the prostatic area. The patient most likely has a weak sphincter and that i s why he does have urgency; however, now because of the effect of the pain medication and also diabe cristiana, the bladder is not squeezing the urine out. Therefore I have tested him and with him lying juan luis n I pressed on his suprapubic area and then he did urinate a good stream into the towels, about 200 mL. Then I did a bladder scan on him and he did have about 500 mL still inside his bladder. Then w e put the urinal for him and we again put pressure on the suprapubic area and then he emptied about 300 mL. A post-void scan showed about 250 mL left in. IMPRESSION: Urinary retention postoperative. PLAN: Apply pressure on the suprapubic area and put a urinal between the legs and collect the urine by applying pressure. He will be able to void and have the nurse do that every 3 hours for him. I did bring the nurse and show her what to do so he will be able to empty his bladder as much as poss ible until he is able to get up and walk around, then he will be able to empty it is even better. I will follow his urological problem with you. I do thank you for allowing me to help in his care. Dictated By: HALEIGH DOWNEY/VICENTA Conf#: [id number] DID#: [id number]
[2016-03-07] MEDS ORDERED: metFORMIN 500 MG TAB PO SCH (17:25)
[2016-03-07] MEDS: metFORMIN 500 MG TAB PO SCH (17:59)
[2016-03-07] MEDS ORDERED: DOXAZOSIN 2 MG TAB PO SCH (21:00)
[2016-03-07 22:01] VITALS: BP 112/55; RESP 20
[2016-03-07] MEDS: SOD FERRIC GLUC COMPLX 125 MG in SOD CHLORIDE 0.9% 100 ML IVPB SCH (22:14)
[2016-03-08 03:05] LABS: SCRET 1.34 mg/dl (0.61-1.24)
[2016-03-08] MEDS: SOD CHLORIDE 0.9% 1,000 ML IV SCH (03:40)
[2016-03-08 05:28] VITALS: BP 149/70; PULSE 63; RESP 18
[2016-03-08] MEDS: traMADol 50 MG TAB PO SCH (05:37)
[2016-03-08] MEDS: PANTOPRAZOLE (EC) 40 MG TAB PO SCH (05:37)
[2016-03-08] MEDS: FUROSEMIDE 40 MG TAB PO SCH (05:38)
[2016-03-08 05:44] LABS: BASOPHILS % 0.3 % (0.0-2.0); EOSINOPHILS # 0.3 10^3/ul (0.0-0.5); EOSINOPHILS % 3.1 % (0.0-7.0); HEMATOCRIT 29.8 % (42.0-52.0); HEMOGLOBIN 10.2 g/dl (14.0-18.0); LYMPHOCYTES # 1.1 10^3/ul (0.8-2.9); LYMPHOCYTES % 12.3 % (15.0-51.0); MEAN CORPUSCULAR HEMOGLOBIN 31.2 pg (29.0-33.0); MEAN CORPUSCULAR HGB CONC 34.2 g/dl (32.0-37.0); MEAN CORPUSCULAR VOLUME 91.3 fl (82.0-101.0); MEAN PLATELET VOLUME 8.2 fl (7.4-10.4); MONOCYTES % 11.6 % (0.0-11.0); NEUTROPHIL # 6.5 10^3/ul (1.6-7.5); NEUTROPHILS % 72.7 % (39.0-77.0); PLATELET COUNT 167 10^3/UL (140-440); RED BLOOD COUNT 3.26 10^6/ul (4.70-6.10); RED CELL DISTRIBUTION WIDTH 14.8 % (11.5-14.5)
[2016-03-08 05:54] LABS: POTASSIUM 3.6 mmol/L (3.5-5.1)
[2016-03-08 05:56] LABS: CREATININE 1.41 mg/dl (0.61-1.24)
[2016-03-08 05:57] LABS: CALCIUM 8.4 mg/dl (8.4-10.2)
[2016-03-08 06:00] LABS: MAGNESIUM 2.2 mg/dl (1.7-2.5); PHOSPHORUS 2.3 mg/dl (2.5-4.9)
[2016-03-08 06:05] LABS: CONDITION 1; LH ANALYZER COMMENTS 1
[2016-03-08] MEDS: MAGNESIUM HYDROXIDE 30ML CUP PO PRN (06:27)
--- NOTE | 2016-03-08 07:18 | PDOCDIS ---
Discharge Instructions DIAGNOSIS Discharge Diagnosis: s/p right hip closed reduction, IM rodding CONDITION Patient Condition: Good HOME CARE INSTRUCTIONS: Diet Instructions: RegularSpecial Diet: Carb Control ACTIVITY: Activity Restrictions: Slowly Increase Activity Rest between Activity Avoid heavy lifting Do not operate Machinery Do not operate Power Tool Avoid Heavy Housework Keep Limb Elevated Partial Weight Bearing Bathing Restrictions: Shower FOLLOW UP/APPOINTMENTS Appointments follow up with Dr. De La Rosa in the office on 03/15/16 OTHER ORDERS: Other Orders: S/P Closed Reduction, Intramedullary Rodding Physical Therapy: Three times per week at home x 2 weeks Daily in Rehab/SNF WB STATUS: Toe Touch Weight Bearing Strengthening exercises for both upper and un-operated lower extremities. 1. Gait training with front wheeled walker 2. Wide base gait, no pivot turns. 3. Abductor strengthening. 4. Quadriceps and hamstring strengthening. 5. May switch to cane in contra lateral hand 6 weeks after surgery. 6. Physical Therapy can open case if nursing is not available. 7. Ice Packs while at rest to surgical wound for 20 minutes, 3 times/day. 8. Patient requires mobile SCDs to reduce risk of developing DVT following KIARRA. Patient will use the mobile SCDs for 30 days postoperatively. Hip Precautions: No posterior hip precautions. Bathing assistance by home health aide twice weekly if Medicare patient. Occupational Therapy: Evaluation for assistive devices and ADL training. Wound Care: Keep incision dry & covered with Tegaderm until first visit with Dr. De La Rosa Anticoagulation Orders: TBD. Please ask Dr. De La Rosa Follow-up:Call for an appointment with Dr. De La Rosa in 1 week after discharged from hospital at DME Orders: AIDEE, 3-in-1 [employer], Mobile SCDs GAIL YEUNG PA-C Mar 08, 2016 07:18
[2016-03-08 07:53] VITALS: BP 128/67; RESP 18
--- NOTE | 2016-03-08 08:20 | CONS ---
Date/Time of Note Date/Time of Note DATE: 03/08/16 TIME: 08:16 Assessment/Plan Assessment/Plan Chief Complaint/Hosp Course 75-year-old male normally cared for by Dr. Geovani Hull and by Dr. Edwards. He sustained a fall with fracture of the left hip was admitted on the . On the he underwent ORIF and received Decadron with that. His blood sugar control which should been fair and had admission A1c has gone significantly out of control. The staff is extremely concerned and has requested assistance in trying to get his sugar control brought back. Problems: (1) Postoperative anemia due to acute blood loss Status: Acute Comment: Patient has rather excessive subcutaneous bruising postsurgically. Please note he is on significant anticoagulants. Anticoagulants will be adjusted and will follow him along carefully. This is not an impediment toward rehab (2) Hyperglycemia due to type 2 diabetes mellitus Status: Acute Comment: Improved control on his current medical regimen will continue to adjust. 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 Qualified Code : E11.65 - Type 2 diabetes mellitus with hyperglycemia, with long-term current use of insulin (3) Essential hypertension Status: Chronic Comment: Well-controlled (4) Systolic and diastolic CHF, chronic Status: Chronic Comment: The combination of systolic and diastolic heart failure now under control using the combination of beta blockade and ALEJANDRA inhibitors with low-dose diuretic (5) Hyperlipidemia Status: Chronic Comment: On statin therapy Qualifiers: Hyperlipidemia type: pure hypercholesterolemia Qualified Code: E78.00 - Pure hypercholesterolemia (6) COPD (chronic obstructive pulmonary disease) Status: Chronic Comment: Noted and less active now using a cardioselective beta-phillip Qualifiers: COPD type: emphysema Emphysema type: unspecified Qualified Code: J43.9 - Pulmonary emphysema, unspecified emphysema type (7) Iron deficiency anemia Status: Chronic Comment: He has been repleted with intravenous iron Qualifiers: Iron deficiency anemia type: unspecified iron deficiency Qualified Code: D50.9 - Iron deficiency anemia, unspecified iron deficiency anemia type Consultation Date/Type/Reason Admit Date/Time Mar 03, 2016 at 16:16 Initial Consult Date 03/06/16 Type of Consultation: Endocrinology Reason for Consultation Hyperglycemia and poorly controlled diabetes mellitus type 2 Referring Provider: BRYAN TURNER NP 24 HR Interval Summary Free Text/Dictation Patient reports feeling better although he does have a dry mouth after usage of the narcotic pain relievers Detailed Summary Respiratory: no complaints Cardiovascular: no complaints Gastrointestinal: no complaints Exam/Review of Systems Vital Signs Vitals Vital Signs Date Time Temp Pulse Resp B/P Pulse Ox O2 Delivery O2 Flow Rate FiO2 03/08/16 07:53 97.8 62 18 128/67 94 03/08/16 05:28 Room Air 03/07/16 08:46 2.0 Intake and Output 03/07/16 03/07/16 03/08/16 15:00 23:00 07:00 Intake Total 960 ml 480 ml Output Total 700 ml 1150 ml Balance 260 ml -670 ml Exam Constitutional: alert, oriented Respiratory: clear to auscultation, normal air movement Cardiovascular: nl pulses, regular rate and rhythm Gastrointestinal: nl liver, spleen, non-tender, soft Genitourinary - Male: nl scrotum (Spread of hematoma from the other subcutaneous tissues) Musculoskeletal: nl extremities to inspection, nl gait and stance (Marked hematomas in the area of the right hip spreading to the groin) Results Result Diagram: 03/08/16 0423 03/08/16 0423 Results 24 hrs Laboratory Tests Test 03/07/16 10:16 03/07/16 11:44 03/07/16 17:29 03/07/16 20:32 Bedside Glucose 312 H 286 H 134 107 Test 03/07/16 23:20 03/08/16 04:23 03/08/16 07:59 Creatinine Clearance 0.8 L Urine Creatinine Timed 24 Urine Random Creatinine 52.16 Urine Total Volume 24 Hours 30 Anion Gap 12 Basophils # 0.0 Basophils % 0.3 Blood Morphology Comment Blood Urea Nitrogen 40 H Calcium Level 8.4 Carbon Dioxide Level 28 Chloride Level 99 Creatinine 1.41 H Eosinophils # 0.3 Eosinophils % 3.1 Glucose Level 170 Hematocrit 29.8 #L Hemoglobin 10.2 #L Lymphocytes # 1.1 Lymphocytes % 12.3 L Magnesium Level 2.2 Mean Corpuscular Hemoglobin 31.2 Mean Corpuscular Hemoglobin Concent 34.2 Mean Corpuscular Volume 91.3 Mean Platelet Volume 8.2 Monocytes # 1.0 H Monocytes % 11.6 H Neutrophils # 6.5 Neutrophils % 72.7 Nucleated Red Blood Cells # 0.0 Nucleated Red Blood Cells % 0.0 Phosphorus Level 2.3 L Platelet Count 167 Potassium Level 3.6 Red Blood Count 3.26 #L Red Cell Distribution Width 14.8 H Sodium Level 135 White Blood Count 9.0 Bedside Glucose 223 H Medications Medications Current Medications Ondansetron HCl (Zofran Inj) 4 mg Q6H PRN IV NAUSEA AND/OR VOMITING Last administered on 03/03/16 22:34; Admin Dose 4 MG; Start 03/03/16 at 19:00 Acetaminophen (Tylenol Tab) 650 mg Q6H PRN PO PAIN LEVEL 1-3 OR FEVER; Start at 19:00 Acetaminophen/ Hydrocodone Bitart ([place] (5/325)) 1 tab Q6H PRN PO MODERATE PAIN LEVEL 4-6 Last administered on 03/06/16 22:10; Admin Dose 1 TAB; Start at 19:00 Morphine Sulfate (morphine) 2 mg Q4H PRN IV SEVERE PAIN LEVEL 7-10 Last administered on 03/04/16 08:25; Admin Dose 2 MG; Start 03/03/16 at 19:00 Docusate Sodium (Colace) 100 mg Q12H PRN PO CONSTIPATION; Start 03/03/16 at 19: 00 Zolpidem Tartrate (Ambien) 5 mg QHS PRN PO SLEEP Last administered on 20:52; Admin Dose 5 MG; Start 03/03/16 at 19:00 Miscellaneous Information 1 ea NOTE XX ; Start 03/03/16 at 19:00 Glucose (Glutose) 15 gm Q15M PRN PO DECREASED GLUCOSE; Start 03/03/16 at 19:00 Glucose (Glutose) 22.5 gm Q15M PRN PO DECREASED GLUCOSE; Start 03/03/16 at 19: 00 Dextrose (D50w Syringe) 25 ml Q15M PRN IV DECREASED GLUCOSE; Start 03/03/16 at 19:00 Dextrose (D50w Syringe) 50 ml Q15M PRN IV DECREASED GLUCOSE; Start 03/03/16 at 19:00 Glucagon (Glucagen) 1 mg Q15M PRN IM DECREASED GLUCOSE; Start 03/03/16 at 19:00 Glucose (Glutose) 15 gm Q15M PRN BUCCAL DECREASED GLUCOSE; Start 03/03/16 at 19 :00 Cyanocobalamin (Vitamin B12) 100 mcg DAILY PO Last administered on 03/06/16 08 :45; Admin Dose 100 MCG; Start 03/04/16 at 09:00; Status Future Hold Escitalopram Oxalate (Lexapro) 10 mg DAILY PO Last administered on 03/07/16 09 :13; Admin Dose 10 MG; Start 03/04/16 at 09:00 Furosemide 40 mg 40 mg DAILY@06 PO Last administered on 03/08/16 05:38; Admin Dose 40 MG; Start 03/04/16 at 06:00 Sodium Chloride 1,000 ml @ 75 mls/hr [id number] IV Last administered on 22:59; Admin Dose 75 MLS/HR; Start 03/05/16 at 09:00 Lactated Ringer's (Lr) 1,000 ml @ 125 mls/hr Q8H IV Last administered on 18:19; Admin Dose 125 MLS/HR; Start 03/05/16 at 16:25 Tramadol HCl (Ultram) 50 mg Q6 PO Last administered on 03/08/16 05:37; Admin Dose 50 MG; Start 03/05/16 at 12:00; Stop 03/08/16 at 11:59 Oxycodone HCl (Roxicodone) 5 mg Q4H PRN PO PAIN LEVEL 1-3; Start 03/05/16 at 16 :30 Oxycodone HCl (Roxicodone) 10 mg Q4H PRN PO PAIN LEVEL 4-7 Last administered on 03/07/16 10:14; Admin Dose 10 MG; Start 03/05/16 at 16:30 Hydromorphone HCl (Dilaudid) 1 mg Q3H PRN IV PAIN LEVEL 8-10; Start 03/05/16 at 16:30 Ondansetron HCl (Zofran Inj) 4 mg Q6H PRN IV NAUSEA AND/OR VOMITING; Start at 16:30 Bisacodyl (Dulcolax Supp) 10 mg Q12H PRN [place] CONSTIPATION; Start 03/05/16 at 16: 30 Magnesium Hydroxide (Milk Of Mag) 30 ml BID PRN PO CONSTIPATION Last administered on 03/08/16 06:27; Admin Dose 30 ML; Start 03/05/16 at 16:30 Sodium Biphosphate/ Sodium Phosphate (Fleet Enema) 133 ml DAILY PRN [place] CONSTIPATION; Start 03/05/16 at 16:30 Docusate Sodium (Colace) 100 mg BID PO Last administered on 03/07/16 20:37; Admin Dose 100 MG; Start 03/05/16 at 21:00 Diphenhydramine HCl (Benadryl) 25 mg Q6H PRN PO PRURITUS; Start 03/05/16 at 16: 30 Enoxaparin Sodium (Lovenox) 30 mg DAILY SC ; Start 03/06/16 at 12:00; Status Future Hold Pregabalin (Lyrica) 50 mg BID PO Last administered on 03/07/16 20:43; Admin Dose 50 MG; Start 03/05/16 at 21:00 Pantoprazole (Protonix Tab) 40 mg BID@06,18 PO Last administered on 03/08/16 05:37; Admin Dose 40 MG; Start 03/05/16 at 18:00 Aspirin (Halfprin) 81 mg DAILY PO Last administered on 03/07/16 09:13; Admin Dose 81 MG; Start 03/06/16 at 09:00 Famotidine (Pepcid) 20 mg DAILY PO Last administered on 03/07/16 09:12; Admin Dose 20 MG; Start 03/06/16 at 15:32 Metoprolol Succinate 25 mg 25 mg BID PO Last administered on 03/07/16 20:39; Admin Dose 25 MG; Start 03/06/16 at 21:00 Ferric Sodium Gluconate Complex/ Sodium Chloride (Ferrlecit/NS) 110 ml @ 100 mls/hr Q24H IVPB Last administered on 03/07/16 22:14; Admin Dose 100 MLS/HR; Start 03/06/16 at 22:00; Stop 03/08/16 at 23:05 Lisinopril (Zestril) 20 mg BID PO Last administered on 03/07/16 20:38; Admin Dose 20 MG; Start 03/07/16 at 09:00 Doxazosin Mesylate (Cardura) 2 mg DAILY@21 PO Last administered on 03/07/16 20 :38; Admin Dose 2 MG; Start 03/07/16 at 21:00 Insulin Glargine (Lantus) 22 unit QAM SC ; Start 03/08/16 at 09:00 IMMANUEL MAXWELL MD Mar 08, 2016 08:20
[2016-03-08] MEDS: LACTATED RINGER'S 1,000 ML IV SCH (08:25)
[2016-03-08] MEDS: DOCUSATE SODIUM 100 MG CAP PO SCH (08:31)
[2016-03-08] MEDS: ASPIRIN (EC) 81 MG TAB PO SCH (08:31)
[2016-03-08] MEDS: LISINOPRIL 20 MG TAB PO SCH (08:31)
[2016-03-08] MEDS: ESCITALOPRAM 10 MG TAB PO SCH (08:31)
[2016-03-08] MEDS: PREGABALIN 25 MG CAP PO SCH (08:31)
[2016-03-08] MEDS: metFORMIN 500 MG TAB PO SCH (08:31)
[2016-03-08] MEDS: FAMOTIDINE 20 MG TAB PO SCH (08:32)
[2016-03-08] MEDS: METOPROLOL (XL) 25 MG TAB PO SCH (08:32)
[2016-03-08] MEDS: INSULIN ASPART [NOVOLOG] 3 ML PEN SC SCH ×4 (08:38→13:19)
[2016-03-08] MEDS ORDERED: INSULIN GLARGINE [LANtus] 3 ML PEN SC SCH (09:00)
--- NOTE | 2016-03-08 09:10 | PN ---
Date/Time of Note Date/Time of Note DATE: 03/08/16 TIME: 09:07 Assessment/Plan Lines/Catheters IV Catheter Type (from Nrsg): Peripheral IV Ch in Place (from Nrsg): No Assessment/Plan Assessment/Plan POD #3, s/p closed reduction IM rodding, right hip fx -d/c lovenox and switch to ASA 325mg BID -stat venous duplex r/o DVT -pain meds -OOB with PT -check AM labs -encourage incentive spirometry -d/c to ARU today Subjective 24 Hr Interval Summary Doing well. No acute overnight events. Mild pain. Lovenox held, will switch to ASA 325mg BID given significant bruising and swelling. VSS, afebrile. H&H improved after blood transfusion. Exam/Review of Systems Vital Signs Vitals Vital Signs Date Time Temp Pulse Resp B/P Pulse Ox O2 Delivery O2 Flow Rate FiO2 03/08/16 07:53 97.8 62 18 128/67 94 03/08/16 05:28 Room Air 03/07/16 08:46 2.0 Intake and Output 03/07/16 03/07/16 03/08/16 15:00 23:00 07:00 Intake Total 960 ml 480 ml Output Total 700 ml 1150 ml Balance 260 ml -670 ml Exam Free Text/Dictation Dressing dry Incision clean, dry, and intact without redness or drainage Significant ecchymosis and RLE swelling secondary to plavix 5/5 Quadriceps, Tibialis Anterior, EHL, Gastroc, Soleus, Peroneals Normal sensation Palpable DT/PT, CR <2 sec No distal edema Results Result Diagram: 03/08/16 0423 03/08/16 0423 GAIL YEUNG PA-C Mar 08, 2016 09:10
--- NOTE | 2016-03-08 10:11 | PN ---
Date/Time of Note Date/Time of Note DATE: 03/08/16 TIME: 10:09 Assessment/Plan VTE Prophylaxis VTE Prophylaxis Intervention: SCD's, other (Aspirin.) Lines/Catheters IV Catheter Type (from [facility]): Peripheral IV Urinary Cath still in place: No Assessment/Plan Chief Complaint/Hosp Course 1. Mildly comminuted and displaced right intertrochanteric fracture of the femur. Status post closed reduction and intramedullary rodding on 03/05/2016. Continue pain control. Postoperative care as per orthopedic surgery. Continue physical therapy. 2. Type 2 diabetes mellitus, uncontrolled. Hemoglobin A1c 9.4. Will adjust insulin dosing to obtain optimal blood sugar control. Endocrinology following. 3. Essential hypertension. Continue antihypertensives. Blood pressure fairly well controlled. 4. History of depression. Continue SSRIs. 5. CAD, status post stenting in the past. Continue aspirin. 6. Acute kidney injury. Etiology unclear. Most probably secondary to hemodynamics versus dehydration. Resolved. 7. History of prostate cancer. S/P surgical resection and radiation. 8. Normocytic, normochromic anemia. Underlying iron deficiency. Continue iron supplements. Transfuse PRBCs as needed. 9. Fluid, electrolytes and nutrition. Carbohydrate controlled, low cholesterol diet. 10. DVT prophylaxis. Aspirin and SCDs. 11. Gastrointestinal prophylaxis with histamine 2 receptor blockers. PLAN: Continue physical therapy and occupational therapy. ARU evaluation ongoing. To be transferred to ARU. Case discussed with Dr. Thomas. Problems: Subjective 24 Hr Interval Summary Free Text/Dictation Pain well controlled. Exam/Review of Systems Vital Signs Vitals Vital Signs Date Time Temp Pulse Resp B/P Pulse Ox O2 Delivery O2 Flow Rate FiO2 03/08/16 07:53 97.8 62 18 128/67 94 03/08/16 05:28 Room Air 03/07/16 08:46 2.0 Intake and Output 03/07/16 03/07/16 03/08/16 15:00 23:00 07:00 Intake Total 960 ml 480 ml Output Total 700 ml 1150 ml Balance 260 ml -670 ml Exam GENERAL: This is a well-built, well-nourished male patient lying in bed in no apparent distress. HEENT: Head normocephalic and atraumatic. Eyes: Anicteric sclerae. Conjunctivae clear. ENT: Nasal septum is midline. Oral mucosa is dry. NECK: Supple. No JVD noticed. RESPIRATORY: Bilaterally clear to auscultation. No adventitious breath sounds heard. No use of accessory muscles of respiration. CARDIAC: Regular rate and rhythm, bradycardia. ABDOMEN: Soft, nontender and nondistended. Bowel sounds positive in all 4 quadrants. GENITOURINARY: The patient has a Ch catheter in place. EXTREMITIES: No cyanosis, no clubbing, no edema. Peripheral pulses palpable. Right hip surgical dressing. NEUROLOGIC: The patient is awake, alert and oriented. Cranial nerves are grossly intact. Results Result Diagram: 03/08/163 03/08/163 Results 24 hrs Laboratory Tests Test 03/07/16 10:16 03/07/16 11:44 03/07/16 17:29 03/07/16 20:32 Bedside Glucose 312 H 286 H 134 107 Test 03/07/16 23:20 03/08/16 04:23 03/08/16 07:59 Creatinine Clearance 0.8 L Urine Creatinine Timed 24 Urine Random Creatinine 52.16 Urine Total Volume 24 Hours 30 Anion Gap 12 Basophils # 0.0 Basophils % 0.3 Blood Morphology Comment Blood Urea Nitrogen 40 H Calcium Level 8.4 Carbon Dioxide Level 28 Chloride Level 99 Creatinine 1.41 H Eosinophils # 0.3 Eosinophils % 3.1 Glucose Level 170 Hematocrit 29.8 #L Hemoglobin 10.2 #L Lymphocytes # 1.1 Lymphocytes % 12.3 L Magnesium Level 2.2 Mean Corpuscular Hemoglobin 31.2 Mean Corpuscular Hemoglobin Concent 34.2 Mean Corpuscular Volume 91.3 Mean Platelet Volume 8.2 Monocytes # 1.0 H Monocytes % 11.6 H Neutrophils # 6.5 Neutrophils % 72.7 Nucleated Red Blood Cells # 0.0 Nucleated Red Blood Cells % 0.0 Phosphorus Level 2.3 L Platelet Count 167 Potassium Level 3.6 Red Blood Count 3.26 #L Red Cell Distribution Width 14.8 H Sodium Level 135 White Blood Count 9.0 Bedside Glucose 223 H Medications Medications Current Medications Ondansetron HCl (Zofran Inj) 4 mg Q6H PRN IV NAUSEA AND/OR VOMITING Last administered on 03/03/16t 22:34; Admin Dose 4 MG; Start 03/03/16 at 19:00 Acetaminophen (Tylenol Tab) 650 mg Q6H PRN PO PAIN LEVEL 1-3 OR FEVER; Start at 19:00 Acetaminophen/ Hydrocodone Bitart ([place] (5/325)) 1 tab Q6H PRN PO MODERATE PAIN LEVEL 4-6 Last administered on 03/06/16 22:10; Admin Dose 1 TAB; Start at 19:00 Morphine Sulfate (morphine) 2 mg Q4H PRN IV SEVERE PAIN LEVEL 7-10 Last administered on 03/04/16 08:25; Admin Dose 2 MG; Start 03/03/16 at 19:00 Docusate Sodium (Colace) 100 mg Q12H PRN PO CONSTIPATION; Start 03/03/16 at 19: 00 Zolpidem Tartrate (Ambien) 5 mg QHS PRN PO SLEEP Last administered on 20:52; Admin Dose 5 MG; Start 03/03/16 at 19:00 Miscellaneous Information 1 ea NOTE XX ; Start 03/03/16 at 19:00 Glucose (Glutose) 15 gm Q15M PRN PO DECREASED GLUCOSE; Start 03/03/16 at 19:00 Glucose (Glutose) 22.5 gm Q15M PRN PO DECREASED GLUCOSE; Start 03/03/16 at 19: 00 Dextrose (D50w Syringe) 25 ml Q15M PRN IV DECREASED GLUCOSE; Start 03/03/16 at 19:00 Dextrose (D50w Syringe) 50 ml Q15M PRN IV DECREASED GLUCOSE; Start 03/03/16 at 19:00 Glucagon (Glucagen) 1 mg Q15M PRN IM DECREASED GLUCOSE; Start 03/03/16 at 19:00 Glucose (Glutose) 15 gm Q15M PRN BUCC[place] DECREASED GLUCOSE; Start 03/03/16 at 19 :00 Cyanocobalamin (Vitamin B12) 100 mcg DAILY PO Last administered on 03/06/16 08 :45; Admin Dose 100 MCG; Start 03/04/16 at 09:00; Status Future Hold Escitalopram Oxalate (Lexapro) 10 mg DAILY PO Last administered on 03/08/16 08 :31; Admin Dose 10 MG; Start 03/04/16 at 09:00 Furosemide 40 mg 40 mg DAILY@06 PO Last administered on 03/08/16 05:38; Admin Dose 40 MG; Start 03/04/16 at 06:00 Sodium Chloride 1,000 ml @ 75 mls/hr [id number] IV Last administered on 22:59; Admin Dose 75 MLS/HR; Start 03/05/16 at 09:00 Lactated Ringer's (Lr) 1,000 ml @ 125 mls/hr Q8H IV Last administered on 18:19; Admin Dose 125 MLS/HR; Start 03/05/16 at 16:25 Tramadol HCl (Ultram) 50 mg Q6 PO Last administered on 03/08/16 05:37; Admin Dose 50 MG; Start 03/05/16 at 12:00; Stop 03/08/16 at 11:59 Oxycodone HCl (Roxicodone) 5 mg Q4H PRN PO PAIN LEVEL 1-3; Start 03/05/16 at 16 :30 Oxycodone HCl (Roxicodone) 10 mg Q4H PRN PO PAIN LEVEL 4-7 Last administered on 03/07/16 10:14; Admin Dose 10 MG; Start 03/05/16 at 16:30 Hydromorphone HCl (Dilaudid) 1 mg Q3H PRN IV PAIN LEVEL 8-10; Start 03/05/16 at 16:30 Ondansetron HCl (Zofran Inj) 4 mg Q6H PRN IV NAUSEA AND/OR VOMITING; Start at 16:30 Bisacodyl (Dulcolax Supp) 10 mg Q12H PRN [place] CONSTIPATION; Start 03/05/16 at 16: 30 Magnesium Hydroxide (Milk Of Mag) 30 ml BID PRN PO CONSTIPATION Last administered on 03/08/16 06:27; Admin Dose 30 ML; Start 03/05/16 at 16:30 Sodium Biphosphate/ Sodium Phosphate (Fleet Enema) 133 ml DAILY PRN [place] CONSTIPATION; Start 03/05/16 at 16:30 Docusate Sodium (Colace) 100 mg BID PO Last administered on 03/08/16 08:31; Admin Dose 100 MG; Start 03/05/16 at 21:00 Diphenhydramine HCl (Benadryl) 25 mg Q6H PRN PO PRURITUS; Start 03/05/16 at 16: 30 Pregabalin (Lyrica) 50 mg BID PO Last administered on 03/08/16 08:31; Admin Dose 50 MG; Start 03/05/16 at 21:00 Pantoprazole (Protonix Tab) 40 mg BID@06,18 PO Last administered on 03/08/16 05:37; Admin Dose 40 MG; Start 03/05/16 at 18:00 Famotidine (Pepcid) 20 mg DAILY PO Last administered on 03/08/16 08:32; Admin Dose 20 MG; Start 03/06/16 at 15:32 Metoprolol Succinate 25 mg 25 mg BID PO Last administered on 03/08/16 08:32; Admin Dose 25 MG; Start 03/06/16 at 21:00 Ferric Sodium Gluconate Complex/ Sodium Chloride (Ferrlecit/NS) 110 ml @ 100 mls/hr Q24H IVPB Last administered on 03/07/16 22:14; Admin Dose 100 MLS/HR; Start 03/06/16 at 22:00; Stop 03/08/16 at 23:05 Lisinopril (Zestril) 20 mg BID PO Last administered on 03/08/16 08:31; Admin Dose 20 MG; Start 03/07/16 at 09:00 Doxazosin Mesylate (Cardura) 2 mg DAILY@21 PO Last administered on 03/07/16 20 :38; Admin Dose 2 MG; Start 03/07/16 at 21:00 Insulin Glargine (Lantus) 22 unit QAM SC Last administered on 03/08/16 08:36; Admin Dose 22 UNIT; Start 03/08/16 at 09:00 Aspirin (Ecotrin) 325 mg BID PO ; Start 03/08/16 at 21:00; Stop 03/22/16 at 20: 59 BRYAN TURNER NP Mar 08, 2016 10:10
--- NOTE | 2016-03-08 10:34 | RADRPT ---
PROCEDURE: US right lower extremity veins. CLINICAL INDICATION: Right leg pain and swelling. Recent right lower extremity surgery. TECHNIQUE: Multiple longitudinal and transverse images of the right lower extremity veins were obt ained with duran scale and color Doppler imaging. The common femoral vein, femoral vein, and poplitea l vein were evaluated. 2D grayscale measurements with compression sonography, pulsed Doppler, color Doppler, and pulsed Doppler with augmentation. COMPARISON: No prior studies are available for comparison. FINDINGS: The right common femoral, femoral and popliteal veins are normally compressible throughout. Color f low demonstrates normal filling of the vessels. Normal waveforms are visualized and there is normal response to augmentation. IMPRESSION: 1. No evidence of deep vein thrombosis involving the right lower extremity. RPTAT: QQ .Kenneth Nicholson MD, Date Time Electronically viewed and signed by .Kenneth Nicholson MD, on 03/08/2016 10:33 .R/
[2016-03-08 14:35] VITALS: BP 119/61; PULSE 55; RESP 20
--- NOTE | 2016-03-08 15:44 | PN ---
DATE: 03/08/2016 CARDIOLOGY FOLLOWUP SUBJECTIVE: Hip pain was discussed with his and discussed with the staff. The patient with no chest pain or pressure. No palpitation. Denies shortness of breath to me at this point. His hip pain has been stable. Only when he moves, he gets it. MEDICATIONS: Reviewed as per medication reconciliation, personally reviewed. PHYSICAL EXAMINATION: VITAL SIGNS: Temperature 97.8, heart rate of 55, blood pressure 119/61, respiration rate of 20, sat urating 96%. HEENT: Normocephalic, atraumatic. No acute distress. Pupils equal and round. CARDIOVASCULAR: Regular rate and rhythm. No murmur appreciated. PULMONARY: With no wheezes or rales. GASTROINTESTINAL: Soft, nontender. EXTREMITIES: Right lower extremity, status post surgery of the hip with edema, positive for ecchymo sis of the right hip and scrotum. NEUROLOGIC: Awake and alert. PSYCHIATRIC: Calm, pleasant. LABORATORY: WBC of 9, hemoglobin 10.2, platelets of 167. Sodium 135, potassium 3.6, BUN of 40, cre atinine 1.141, glucose 170. ASSESSMENT AND PLAN 1. Hip fracture status post surgery. No cardiac complication at this point. 2. Coronary artery disease. 3. History of myocardial infarction. 4. History of percutaneous coronary intervention. 5. History of congestive heart failure, currently appears to be stable. Not in decompensated heart failure. 4. Hypertension, under good control. 5. Diabetes. 6. History of chronic obstructive pulmonary disease. 7. Sinus bradycardia on beta phillip. RECOMMENDATIONS: We will continue with the current cardiac care. The patient on aspirin for deep v enous thrombosis prophylaxis as well for coronary artery disease. Beta phillip will be continued. Awaiting rehab transfer. Dictated By: LORETTA MENDOZA MD AV/VICENTA Conf#: [id number] DID#: [id number] CC: BRYAN TURNER CAD DRAFTER;*[facility]*
[2016-03-08] MEDS ORDERED: ASPIRIN (EC) 325 MG TAB PO SCH (21:00)
--- NOTE | 2016-03-09 10:43 | DS ---
DATE OF ADMISSION: 03/03/2016 DATE OF DISCHARGE: 03/08/2016 CONDITION UPON DISCHARGE: Stable. ADMITTING DIAGNOSIS: Right hip intertrochanteric fracture. DISCHARGE DIAGNOSIS: Status post closed reduction and intramedullary rodding, right hip. PROCEDURE PERFORMED: Closed reduction and intramedullary rodding, right hip. HOSPITAL COURSE: This is a 75-year-old male who was initially seen in the emergency department afte r a mechanical fall while at work. He then landed on his right hip pain and had immediate pain. He was seen in the emergency department at [facility], where a CT scan of the femur that show ed a fracture on the right side. The patient was complaining of right hip and groin pain. We saw t he patient in orthopedic consultation. On 03/05/2016 the patient was taken to the operating room, w here he underwent a closed reduction and intramedullary rodding of his right hip fracture. There we re no intraoperative complications. The patient tolerated the procedure well. He was taken to the r ecovery room in stable condition. Pain was well controlled with oral pain medication. Anticoagulat ion was initially held secondary to the patient being on Plavix and developing significant soft tiss ue swelling and ecchymosis. He was started on aspirin 325 mg b.i.d. for DVT prophylaxis. He remain ed hemodynamically stable and neurovascularly intact throughout his hospital stay. He did require a blood transfusion secondary to some mild anemia, which did improve after the blood transfusion. He began physical therapy and continued to make good progress. On postoperative day 3 he was deemed s table for discharge. The patient was transferred to the acute rehabilitation unit, where he was acc epted. Dressing changes were done prior to the patient going to ARU. LABORATORY ANALYSIS UPON DISCHARGE: Hemoglobin 10.2, hematocrit 29.8, platelets 167. Chemistry isaac el was within normal limits, aside from an elevated blood sugar of 223. DISCHARGE MEDICATIONS: 1. Aspirin 325 mg. 2. Tramadol 50 mg. 3. [place] 5/325 mg. 4. Protonix 40 mg. Additionally, the patient is to resume all of his normal home medication. DISCHARGE INSTRUCTIONS: The patient will be transferred to the acute rehabilitation unit at [facility]. He is to resume a normal diet. Activities include partial weightbearing on the right lower extremity. He is to begin physical therapy at the ARU. He is to resume all of his normal home medication. The patient is to call the office or return to the emergency room for any c oncerns, including increased redness, swelling, drainage, fever or any concerns regarding the operat ion or the site of incision. FOLLOWUP: The patient is to follow up in the office with Dr. De La Rosa on 03/15/2016. Dictated By: [employer] for ANASTASIA SERRATO/VICENTA Conf#: [id number] DID#: [id number]
== END 2016-03-08 15:30 | DRG 481 ==
LOC: E/R 13:48 → MS1 16:16
PROVIDERS: ADMIT Internal Medicine; ATTEND Internal Medicine
PROC: 30233N1 Transfusion of Nonautologous Red Blood Cells into Peripheral Vein, Percutaneous Approach (ICD-10-PCS; 2016-03-05)
PROC: 0QS636Z Reposition Right Upper Femur with Intramedullary Internal Fixation Device, Percutaneous Approach (ICD-10-PCS; principal; 2016-03-05 14:00)
DX: S72.141A Displaced intertrochanteric fracture of right femur, initial encounter for closed fracture (principal); N17.9 Acute kidney failure, unspecified; I50.32 Chronic diastolic (congestive) heart failure; E11.65 Type 2 diabetes mellitus with hyperglycemia; D62 Acute posthemorrhagic anemia; R00.1 Bradycardia, unspecified; I25.10 Atherosclerotic heart disease of native coronary artery without angina pectoris; D72.829 Elevated white blood cell count, unspecified; F32.9 Major depressive disorder, single episode, unspecified; I25.2 Old myocardial infarction; E78.5 Hyperlipidemia, unspecified; D50.9 Iron deficiency anemia, unspecified; J44.9 Chronic obstructive pulmonary disease, unspecified; T44.7X5A Adverse effect of beta-adrenoreceptor antagonists, initial encounter; W18.30XA Fall on same level, unspecified, initial encounter; R33.9 Retention of urine, unspecified; Z87.891 Personal history of nicotine dependence; Z95.5 Presence of coronary angioplasty implant and graft; Z85.46 Personal history of malignant neoplasm of prostate; Z79.899 Other long term (current) drug therapy; Z79.4 Long term (current) use of insulin
CPT/HCPCS: 36430; 70450; 71010; 72170; 73500; 73510; 73530; 73550; 73560; 73700; 80048; 80053; 80061; 81001; 81003; 82575; 82728; 82962; 83036; 83540; 83605; 83735; 84100; 84153; 84154; 84484; 85014; 85018; 85025; 85610; 85730; 86644; 86850; 86900; 86901; 86920; 87086; 93005; 93306; 93971; 96374; 96375; 96376; 97003; 97110; 97116; 97162; 97167; 97530; 97535; J1940; J0131; J0690; J1100; J1200; J1815; J2250; J2270; J2405; J2710; J2916; J3010; J3420; J3480; J7030; J7120; P9016

== ENCOUNTER 2016-03-08 15:40 | Inpatient (IN) | payer MEDICARE, BC ==
[~2016-03-08] VITALS: Ht 165.1 cm; Wt 75.3 kg
[~2016-03-08 15:40] MED LIST: AMLO5TAB4 PO; ASPI-664 PO; CANA100T PO; CARV12.579 PO; CLOP75TA27 PO; CYAN100 PO; ESCI10TA PO; FURO40TA4 PO; LANT3I SC; LIRA0.6P SQ; LISI40TA9 PO; METF-382 PO; NOVO3I SC
[2016-03-08 15:59] VITALS: BP 106/59; PULSE 57; RESP 18
[2016-03-08 16:33] LABS: ADD UMIC YES; URINE BILIRUBIN (Dip) NEGATIVE (NEGATIVE); URINE BLOOD (Dip) TRACE (NEGATIVE); URINE COLOR LT. YELLOW (YELLOW); URINE KETONES (Dip) NEGATIVE (NEGATIVE); URINE LEUKOCYTE ESTERASE (Dip) NEGATIVE (NEGATIVE); URINE NITRITE (Dip) NEGATIVE (NEGATIVE); URINE TOTAL PROTEIN (Dip) NEGATIVE (NEGATIVE); URINE UROBILINOGEN (Dip) 0.2 E.U./dL (0.1-1.0)
[2016-03-08] MEDS ORDERED: ONDANSETRON 4 MG INJ IV PRN (17:00)
[2016-03-08] MEDS ORDERED: BISACODYL 10 MG SUPP PR PRN ×2 (17:00→18:00)
[2016-03-08] MEDS ORDERED: ACETAMINOPHEN 325 MG TAB PO PRN (17:00)
[2016-03-08] MEDS ORDERED: GLUCOSE GEL 15 GRAM TUBE PO PRN ×2 (17:00)
[2016-03-08] MEDS ORDERED: DEXTROSE 50% 50 ML SYRINGE IV PRN ×2 (17:00)
[2016-03-08] MEDS ORDERED: DOCUSATE SODIUM 100 MG CAP PO PRN (17:00)
[2016-03-08] MEDS ORDERED: GLUCOSE GEL 15 GRAM TUBE BUCCAL PRN (17:00)
[2016-03-08] MEDS ORDERED: DIPHENHYDRAMINE 25 MG CAP PO PRN (17:00)
[2016-03-08] MEDS ORDERED: GLUCAGON 1 MG INJ IM PRN (17:00)
[2016-03-08] MEDS ORDERED: MAGNESIUM HYDROXIDE 30ML CUP PO PRN (17:00)
[2016-03-08] MEDS: Insulin NOVOLOG SS MILD Algorithm (SS with meals and bedtime) SC SCH ×2 (17:05→21:00)
[2016-03-08 17:12] LABS: URINE RBCS 0-2 /HPF (0)
[2016-03-08 17:13] LABS: BACTERIA,URINE FEW
[2016-03-08] MEDS: INSULIN ASPART [NOVOLOG] 3 ML PEN SC SCH (17:35)
[2016-03-08] MEDS: traMADol 50 MG TAB PO SCH ×2 (17:46→23:58)
[2016-03-08] MEDS: metFORMIN 500 MG TAB PO SCH (17:46)
[2016-03-08] MEDS ORDERED: LACTULOSE 30ML CUP PO PRN (18:00)
[2016-03-08] MEDS: DOCUSATE SODIUM 100 MG CAP PO SCH (21:00)
[2016-03-08] MEDS: SENNA TAB PO SCH (21:00)
[2016-03-08] MEDS: ASPIRIN (EC) 325 MG TAB PO SCH (21:05)
[2016-03-08] MEDS: LISINOPRIL 20 MG TAB PO SCH (21:06)
[2016-03-08] MEDS: DOXAZOSIN 2 MG TAB PO SCH (21:06)
[2016-03-08] MEDS: METOPROLOL (XL) 25 MG TAB PO SCH (21:07)
[2016-03-08] MEDS: PREGABALIN 25 MG CAP PO SCH (21:58)
[2016-03-08] MEDS: ZOLPIDEM 5 MG TAB PO PRN (23:58)
[2016-03-09] MEDS: ACCUCHECK AT 2AM (Patients on SS coverage) XX SCH (02:00)
[2016-03-09] MEDS: traMADol 50 MG TAB PO SCH (06:26)
[2016-03-09] MEDS: FUROSEMIDE 40 MG TAB PO SCH (06:27)
[2016-03-09 07:30] VITALS: BP 134/71; RESP 20
[2016-03-09 07:33] LABS: EOSINOPHILS # 0.2 10^3/ul (0.0-0.5); EOSINOPHILS % 2.2 % (0.0-7.0); HEMATOCRIT 28.5 % (42.0-52.0); LYMPHOCYTES # 0.8 10^3/ul (0.8-2.9); LYMPHOCYTES % 9.3 % (15.0-51.0); MEAN CORPUSCULAR HEMOGLOBIN 31.4 pg (29.0-33.0); MEAN CORPUSCULAR HGB CONC 35.2 g/dl (32.0-37.0); MEAN CORPUSCULAR VOLUME 89.3 fl (82.0-101.0); MEAN PLATELET VOLUME 8.4 fl (7.4-10.4); MONOCYTE # 0.9 10^3/ul (0.3-0.9); MONOCYTES % 10.5 % (0.0-11.0); NEUTROPHIL # 6.5 10^3/ul (1.6-7.5); PLATELET COUNT 193 10^3/UL (140-440); RED BLOOD COUNT 3.19 10^6/ul (4.70-6.10); RED CELL DISTRIBUTION WIDTH 14.3 % (11.5-14.5); UNCORRECTED WBC 8.3 10^3/ul (4.8-10.8); WHITE BLOOD COUNT 8.3 10^3/ul (4.8-10.8)
[2016-03-09 07:41] LABS: CONDITION 1
[2016-03-09 07:54] LABS: ALBUMIN 2.5 g/dl (3.3-4.9)
[2016-03-09 07:57] LABS: ALBUMIN/GLOBULIN RATIO 1.13; BILIRUBIN,INDIRECT 1.8 mg/dl (0-1.1); BILIRUBIN,TOTAL 1.8 mg/dl (0.2-1.3); CALCIUM 8.4 mg/dl (8.4-10.2); CREATININE 1.09 mg/dl (0.61-1.24); TOTAL PROTEIN 4.7 g/dl (6.1-8.1)
[2016-03-09] MEDS: INSULIN ASPART [NOVOLOG] 3 ML PEN SC SCH ×3 (08:27→17:58)
[2016-03-09] MEDS: Insulin NOVOLOG SS MILD Algorithm (SS with meals and bedtime) SC SCH ×4 (08:28→21:00)
[2016-03-09] MEDS: METOPROLOL (XL) 25 MG TAB PO SCH ×2 (09:00→20:32)
[2016-03-09] MEDS: LISINOPRIL 20 MG TAB PO SCH ×2 (09:00→20:30)
[2016-03-09] MEDS: FAMOTIDINE 20 MG TAB PO SCH (09:51)
[2016-03-09] MEDS: CYANOCOBALAMIN 100 MCG TAB PO SCH (09:51)
[2016-03-09] MEDS: ESCITALOPRAM 10 MG TAB PO SCH (09:51)
[2016-03-09] MEDS: ASPIRIN (EC) 325 MG TAB PO SCH ×2 (09:51→20:29)
[2016-03-09] MEDS: PREGABALIN 25 MG CAP PO SCH ×2 (09:51→20:30)
[2016-03-09] MEDS: DOCUSATE SODIUM 100 MG CAP PO SCH ×2 (09:52→20:29)
[2016-03-09] MEDS: INSULIN GLARGINE [LANtus] 3 ML PEN SC SCH (09:59)
--- NOTE | 2016-03-09 11:54 | HP ---
DATE OF ADMISSION: 03/08/2016 PHYSICAL MEDICINE AND REHABILITATION HISTORY AND PHYSICAL DATE OF VISIT: 03/09/2016 REHABILITATION IMPAIRMENT CATEGORY: Right displaced comminuted intertrochanteric hip fracture. CHIEF COMPLAINT: Impaired mobility, right hip pain. HISTORY OF PRESENT ILLNESS: This is a 75-year-old male with past medical history including hypertension, insulin-dependent diabetes mellitus type 2, coronary artery disease status post NM, status post cardiac stents, history of prostate cancer status post prostatectomy and radiation therapy, chronic congestive heart failure, depression, who initially presented to [facility] after sustaining a mechanical fall in which he landed on his right hip with immediate pain. Imaging showed a displaced comminuted right intertrochanteric hip fracture. He was evaluated by orthopedic surgery and recommended surgical intervention. He went to the OR on 03/05/[address] De La Rosa and underwent a closed reduction and intramedullary rodding. No reported intraoperative complications. Postoperatively, he was recommended toe touch weight bearing through right lower extremity. His postoperative course has been complicated by uncontrolled diabetes followed by endocrinology, acute kidney injury, significant post operative ecchymosis, and acute blood loss anemia for which he received packed red blood cells transfusion and iron supplementation. Also complicated by postoperative urinary retention. The patient did work with physical and occupational therapies and noted to have a significant overall functional decline from his baseline independent status. Currently, the patient is requiring minimal to moderate assistance for bed mobility, transfers, and gait up to 40ft with standard walker. Requires consistent cuing to maintain weight bearing precautions. Requires moderate assistance for lower body dressing, toileting and bathing, supervision for upper body dressing. Due to his continued overall functional impairments and ongoing medical comorbidities, he was thought to benefit from acute inpatient rehabilitation. PAST MEDICAL AND PAST SURGICAL HISTORY: As stated in history of present illness includin. History of prostate cancer status post prostatectomy and radiation therapy. 2. Coronary artery disease, status post NM, status post cardiac stents. 3. Insulin-dependent diabetes mellitus type 2. 4. Hypertension. 5. Chronic congestive heart failure. 6. History of COPD. 7. Depression. 8. Other surgeries include cataract surgery. FAMILY HISTORY: Significant for diabetes. SOCIAL HISTORY: Denies current toxic habits. He lives with his in a single story home with 2 steps to enter home. He reports prior level of function was completely independent for all functional mobility and self-care ADLs and did not use any assistive device. Please see history of present illness for current level of function ALLERGIES: NO KNOWN DRUG ALLERGIES. MEDICATIONS ON ADMISSION: Reviewed in electronic medical records includin. Lantus 18 units subcutaneous daily in the morning. 2. Pepcid 20 mg oral daily. 3. Lexapro 10 mg oral daily. 4. Vitamin B12 100 mcg daily. 5. Lasix 40 mg oral daily. 6. Aspirin 325 mg oral twice daily. 7. Lyrica 25 mg oral twice daily. 8. Lisinopril 20 mg oral twice daily. 9. Metoprolol 25 mg oral twice daily. 10. Cardura 2 mg oral daily. 11. Colace oral twice daily. 12. Senna oral daily. 13. Dulcolax suppository as needed. 14. Metformin 1000 mg before breakfast and dinner. 15. Insulin sliding scale. 16. Milk of magnesia as needed. 17. Zofran as needed. 18. [place] 5/325 mg 1 tab oral q.6 hours as needed. 19. Tylenol 650 mg oral q.6h. as needed for mild pain. 20. Tramadol 50 mg oral q6h LABORATORIES AND IMAGING: Reviewed in the electronic medical record. Admission labs today show hemoglobin 10, hematocrit 28.5. WBC 8.3, platelets 193. Sodium 136, potassium 4, BUN 34, creatinine 1.09, total bilirubin 1.8, indirect bilirubin 1.8, AST 45, ALT 28, alkaline phosphatase is 58. Urinalysis has negative nitrites, negative leukocyte esterase, 2 to 5 WBCs, few bacteria. Urine culture is pending. REVIEW OF SYSTEMS: CONSTITUTIONAL: Denies any fevers or chills. No night sweats. Reports tired this morning due to not sleeping well last night due to noise. EYES: Denies pain or discharge. EARS, NOSE AND THROAT: Denies difficulty swallowing. No changes in hearing. RESPIRATORY: Denies shortness of breath, no cough. CARDIOVASCULAR: Denies chest pain, no palpitations. GENITOURINARY: Reports voiding has improved and no further difficulty. Denies any dysuria or hematuria. GASTROINTESTINAL: Reports prior constipation now resolved and had a bowel movement yesterday. No nausea or vomiting. NEUROLOGICAL: Denies any new focal weakness or new paresthesias. MUSCULOSKELETAL: Reports mild pain currently in the right hip, pain up to 7/10 with movement. SKIN: Significant post operative ecchymosis in the right lower extremity, groin region, abdomen. PSYCHIATRIC: Reports history of depression. Review of systems was otherwise negative. PHYSICAL EXAMINATION: VITAL SIGNS: Blood pressure 134/71, heart rate 57, temperature 97.4 Fahrenheit , respiratory rate 20, O2 saturation 93% on room air. GENERAL: The patient is well nourished, well developed, awake, alert, in no acute distress. HEAD, EYES, EARS, NOSE AND THROAT: Normocephalic, atraumatic. Sclerae anicteric. Mucous membranes moist. NECK: Supple, nontender. RESPIRATORY: Lungs are clear to anterior auscultation. No accessory muscle use. CARDIOVASCULAR: Regular rate and rhythm. Audible S1, S2. There is edema in the right lower extremity. ABDOMEN: Soft, nontender. Bowel sounds are present. EXTREMITIES: Calves are nontender. Right lower extremity with significant ecchymosis as well as edema. Surgical site with dressing in place. SKIN: Extensive ecchymosis in the right lower extremity, groin region, and abdomen/right flank. Some bruising also in the bilateral upper extremities. Left heel has blanchable redness. PSYCHIATRIC: Affect and mood are appropriate. Oriented to self, [facility], month and year. NEUROLOGICAL/MUSCULOSKELETAL: Oriented x3, able to state reason for his hospital stay. He follows simple commands. Speech fluent. Good plus strength throughout the bilateral upper extremities and left lower extremity. Right dorsiflexion and plantar flexion strength is intact. Proximal right lower extremity testing is pain limited. Reports sensation intact to light touch. Active range of motion in the bilateral upper extremities and left lower extremity is within normal limits. No increase in tone. IMPRESSION: 1. Right displaced comminuted intertrochanteric hip fracture status post closed reduction and intramedullary rodding. 2. Impaired mobility, gait and balance. 3. Impaired self-care activities of daily living. 4. Acute postoperative pain. 5. Acute blood loss anemia. 6. Extensive post operative ecchymosis 7. Hypertension. 8. Insulin-dependent diabetes mellitus type 2. 9. Coronary artery disease, status post cardiac stents. 10. History of prostate cancer status post prostatectomy. 11. Postoperative urinary retention. 12. Depression. 13. Chronic congestive heart failure. 14. History of Chronic obstructive pulmonary disease. 15. Constipation. PLAN: The patient will be admitted for inpatient comprehensive interdisciplinary rehabilitation to address impairments and medical conditions listed previously while assessing equipment needs and compensatory strategies with coordinated interdisciplinary services to include physical and occupational therapies and close monitoring and treatment with 24-hour rehabilitation nursing. The patient is anticipated to be able to tolerate 3 hours daily of therapies for at least 5 out of the 7 days/week along with rehabilitation nursing and close supervision by rehabilitation physician. Based on the patient's complex medical issues, the rehabilitation services cannot be provided at a lesser level. 1. Begin physical therapy for bed mobility, transfers, balance training, gait and stairs training with assistive devices as needed. 2. Begin occupational therapies for activities of daily living, functional transfers, patient education and adaptive equipment evaluation. 3. Speech therapy for full cognitive assessment and treatment. 4. Rehabilitation nursing to provide the patient education regarding current medications as they relate to medical illness. Monitor blood sugars. Monitor for signs or symptoms of hyper or hypoglycemia. Monitor pain, monitor bowel and bladder programs and administer such programs. Continue to reinforce those activities with therapies. 5. Dr. Yuan to follow for management of medical comorbidities. 6. For diabetes mellitus, with uncontrolled blood sugars postoperatively, continue on insulin and metformin. Internal medicine and endocrinology to follow and adjust regimen as needed. 7. For history of hypertension, blood pressure appears to be controlled. Continue current regimen. 8. For acute blood loss anemia, continue to closely monitor hemoglobin and hematocrit. 9. For acute postoperative pain, previously on IV narcotics and OxyContin, which patient reports caused significant sedation. This has been discontinued. Will change tramadol from q6h scheduled to prn given concerns about sedation. Continue prn [place]. We will closely monitor for sedation and adjust regimen further as needed as he begins to mobilize further with therapies. 10. For depression, currently mood appears stable. Continue on Lexapro. 11. Surgical site care as per orthopedic surgery. 12. For history of congestive heart failure, continue on diuretics per cardiology and internal medicine. Monitor volume status. 13. For constipation, continue on bowel regimen. 14. For his bladder, we will start bladder training with nursing staff. We will closely monitor postvoid residuals and monitor for any further urinary retention. 15. For deep venous thrombosis prophylaxis, he is on aspirin 325 twice daily per orthopedic surgery. Prior venous doppler of the right lower extremity was negative for DVT. Will closely monitor sites of ecchymosis. For gastrointestinal prophylaxis, continue on Pepcid. MEDICAL/REHABILITATION GOALS: To improve bed mobility, transfers, wheelchair mobility, household gait and self-care ADLs to stand by assist level. ANTICIPATED DISCHARGE DISPOSITION: To home with . ESTIMATED LENGTH OF STAY: Approximately 10 to 14 days. His case will be discussed at the weekly interdisciplinary conference. PROGNOSIS: At the current time, this inpatient hospital rehabilitation stay is medically necessary to achieve important health and functional goals. The patient requires frequent physician visits, 24-hour rehabilitation nursing in a coordinated intensive rehabilitation program as described above to address complex medical, nursing and rehabilitation needs. The patient has a good prognosis for benefiting from this program and returning to home and community. REHABILITATION PHYSICIAN POST-ADMISSION ASSESSMENT REVIEW: I have had the opportunity to examine the patient and have reviewed the preadmission assessment and the findings are consistent with my examination and evaluation of the patient. I confirm that this patient is appropriate for admission and treatment in this inpatient rehabilitation hospital, needs intense interdisciplinary rehabilitation care and is expected to achieve meaningful goals within a reasonable period of time that are consistent with the planned discharge disposition. Dictated By: VIC GONZALEZ MD, RA/VICENTA Conf#: [id number] DID#: [id number] MTDD
[2016-03-09] MEDS: metFORMIN 500 MG TAB PO SCH (17:53)
[2016-03-09 19:58] VITALS: BP 159/74; RESP 19
[2016-03-09] MEDS: SENNA TAB PO SCH (20:29)
[2016-03-09] MEDS: traMADol 50 MG TAB PO PRN (20:31)
[2016-03-09] MEDS: DOXAZOSIN 2 MG TAB PO SCH (20:32)
[2016-03-10] MEDS: ACCUCHECK AT 2AM (Patients on SS coverage) XX SCH (01:15)
[2016-03-10] MEDS: ZOLPIDEM 5 MG TAB PO PRN ×2 (01:57→22:18)
[2016-03-10] MEDS: FUROSEMIDE 40 MG TAB PO SCH (05:20)
[2016-03-10] MEDS: HYDROCODONE/APAP (5/325) TAB PO PRN (05:20)
[2016-03-10 07:30] VITALS: BP 161/74; RESP 18
[2016-03-10] MEDS: Insulin NOVOLOG SS MILD Algorithm (SS with meals and bedtime) SC SCH ×4 (08:19→20:34)
[2016-03-10] MEDS: INSULIN ASPART [NOVOLOG] 3 ML PEN SC SCH ×3 (08:20→17:36)
[2016-03-10] MEDS: ASPIRIN (EC) 325 MG TAB PO SCH ×2 (09:24→20:21)
[2016-03-10] MEDS: PREGABALIN 25 MG CAP PO SCH ×2 (09:24→20:21)
[2016-03-10] MEDS: ESCITALOPRAM 10 MG TAB PO SCH (09:24)
[2016-03-10] MEDS: METOPROLOL (XL) 25 MG TAB PO SCH ×2 (09:25→20:23)
[2016-03-10] MEDS: LISINOPRIL 20 MG TAB PO SCH ×2 (09:28→20:23)
[2016-03-10] MEDS: CYANOCOBALAMIN 100 MCG TAB PO SCH (09:29)
[2016-03-10] MEDS: DOCUSATE SODIUM 100 MG CAP PO SCH ×2 (09:35→20:21)
[2016-03-10] MEDS: INSULIN GLARGINE [LANtus] 3 ML PEN SC SCH (09:35)
[2016-03-10] MEDS: FAMOTIDINE 20 MG TAB PO SCH (09:37)
[2016-03-10] MEDS: INSULIN ASPART [NOVOLOG] 3 ML PEN SC STA ×2 (12:16→13:45)
--- NOTE | 2016-03-10 12:19 | PN ---
Date/Time of Note Date/Time of Note DATE: 03/10/16 TIME: 12:17 Assessment/Plan VTE Prophylaxis VTE Prophylaxis Intervention: other Lines/Catheters Urinary Cath still in place: No Assessment/Plan Chief Complaint/Hosp Course Chief Complaint/Hosp Course 1. Mildly comminuted and displaced right intertrochanteric fracture of the femur. Status post closed reduction and intramedullary rodding on 03/05/2016. Continue pain control. Postoperative care as per orthopedic surgery. Continue physical therapy. 2. Type 2 diabetes mellitus, uncontrolled. Hemoglobin A1c 9.4. Will adjust insulin dosing to obtain optimal blood sugar control. 3. Essential hypertension. Continue antihypertensives. Blood pressure fairly well controlled. 4. History of depression. Continue SSRIs. 5. CAD, status post stenting in the past. Continue aspirin. 6. Acute kidney injury. Etiology unclear. Most probably secondary to hemodynamics versus dehydration. Resolved. 7. History of prostate cancer. S/P surgical resection and radiation. 8. Normocytic, normochromic anemia. Underlying iron deficiency. Continue iron supplements. Transfuse PRBCs as needed. 9. DVT prophylaxis. Aspirin and SCDs. 10. Gastrointestinal prophylaxis with histamine 2 receptor blockers. We will continue monitor patient closely for recommendation management treatment as clinical course Problems: Subjective 24 Hr Interval Summary Free Text/Dictation No acute changes Complains of having right hip pain Denies any chest pain or shortness of breath Exam/Review of Systems Vital Signs Vitals Vital Signs Date Time Temp Pulse Resp B/P Pulse Ox O2 Delivery O2 Flow Rate FiO2 03/09/16 19:58 98.3 87 19 159/74 97 03/08/16 15:59 Room Air Intake and Output 03/09/16 03/09/16 03/10/16 15:00 23:00 07:00 Intake Total 1120 ml 450 ml Output Total 1900 ml 900 ml Balance -780 ml -450 ml Exam General: The patient is well-developed, Not in acute distress. HEENT: Atraumatic, normocephalic. The pupils are equal and round . Neck: Supple with full range of motion. Chest: Normal expansion of the thorax during inspiration Lungs: Clear to auscultation bilaterally Heart: Normal S1-S2, Regular rhythm and rate. Abdomen: Soft , nontender, nondistended , bowel sounds are present. Extremities: Right hip bruising at the surgical site, surgical site is dry and clean, no edema no cyanosis Neurologic: Normal mental status,The patient is awake, alert and oriented . Results Result Diagram: 03/09/16 0615 03/09/16 0615 Results 24 hrs Laboratory Tests Test 03/09/16 12:20 03/09/16 17:19 03/09/16 20:57 03/10/16 07:53 Bedside Glucose 252 H 286 H 125 214 Test 03/10/16 12:05 Bedside Glucose 398 H Medications Medications Current Medications Aspirin (Ecotrin) 325 mg BID PO Last administered on 03/10/16 09:24; Admin Dose 325 MG; Start 03/08/16 at 21:00 Pregabalin (Lyrica) 25 mg BID PO Last administered on 03/10/16 09:24; Admin Dose 25 MG; Start 03/08/16 at 21:00 Zolpidem Tartrate (Ambien) 5 mg HS PRN PO INSOMNIA Last administered on 01:57; Admin Dose 5 MG; Start 03/08/16 at 17:00 Ondansetron HCl (Zofran Inj) 4 mg Q6H PRN IV NAUSEA AND/OR VOMITING; Start at 17:00 Lisinopril (Zestril) 20 mg BID PO Last administered on 03/10/16 09:28; Admin Dose 20 MG; Start 03/08/16 at 21:00 Magnesium Hydroxide (Milk Of Mag) 30 ml BID PRN PO CONSTIPATION; Start at 17:00 Metoprolol Succinate (Toprol Xl) 25 mg BID PO Last administered on 03/10/16 09 :25; Admin Dose 25 MG; Start 03/08/16 at 21:00 Miscellaneous Information 1 ea NOTE XX ; Start 03/08/16 at 17:00 Glucose (Glutose) 15 gm Q15M PRN PO DECREASED GLUCOSE; Start 03/08/16 at 17:00 Glucose (Glutose) 22.5 gm Q15M PRN PO DECREASED GLUCOSE; Start 03/08/16 at 17: 00 Dextrose (D50w Syringe) 25 ml Q15M PRN IV DECREASED GLUCOSE; Start 03/08/16 at 17:00 Dextrose (D50w Syringe) 50 ml Q15M PRN IV DECREASED GLUCOSE; Start 03/08/16 at 17:00 Glucagon (Glucagen) 1 mg Q15M PRN IM DECREASED GLUCOSE; Start 03/08/16 at 17:00 Glucose (Glutose) 15 gm Q15M PRN BUCCAL DECREASED GLUCOSE; Start 03/08/16 at 17 :00 Insulin Glargine (Lantus) 18 unit QAM SC Last administered on 03/10/16 09:35; Admin Dose 18 UNIT; Start 03/09/16 at 09:00 Diagnostic Test (Pha) (Accucheck) 1 ea 02 XX Last administered on 03/09/16 02: 00; Admin Dose 1 EA; Start 03/09/16 at 02:00 Acetaminophen/ Hydrocodone Bitart ([place] (5/325)) 1 tab Q6H PRN PO MODERATE PAIN LEVEL 4-6 Last administered on 03/10/16 05:20; Admin Dose 1 TAB; Start at 17:00 Furosemide (Lasix) 40 mg DAILY@06 PO Last administered on 03/10/16 05:20; Admin Dose 40 MG; Start 03/09/16 at 06:00 Famotidine (Pepcid) 20 mg DAILY PO Last administered on 03/10/16 09:37; Admin Dose 20 MG; Start 03/09/16 at 09:00 Escitalopram Oxalate (Lexapro) 10 mg DAILY PO Last administered on 03/10/16 09 :24; Admin Dose 10 MG; Start 03/09/16 at 09:00 Doxazosin Mesylate (Cardura) 2 mg DAILY@21 PO Last administered on 03/09/16 20 :32; Admin Dose 2 MG; Start 03/08/16 at 21:00 Docusate Sodium (Colace) 100 mg BID PO Last administered on 03/10/16 09:35; Admin Dose 100 MG; Start 03/08/16 at 21:00 Docusate Sodium (Colace) 100 mg Q12H PRN PO CONSTIPATION; Start 03/08/16 at 17: 00 Diphenhydramine HCl (Benadryl) 25 mg Q6H PRN PO PRURITUS; Start 03/08/16 at 17: 00 Acetaminophen (Tylenol Tab) 650 mg Q6H PRN PO PAIN LEVEL 1-3 OR FEVER; Start at 17:00 Bisacodyl (Dulcolax Supp) 10 mg Q12H PRN DE CONSTIPATION; Start 03/08/16 at 17: 00 Cyanocobalamin (Vitamin B12) 100 mcg DAILY PO Last administered on 03/10/16 09 :29; Admin Dose 100 MCG; Start 03/09/16 at 09:00 Influenza Virus Vaccine (Fluzone) 0.5 ml ONCE ONCE IM* ; Start 03/11/16 at 09:00 ; Stop 03/11/16 at 09:01 Senna (Senokot) 1 tab QHS PO Last administered on 03/09/16 20:29; Admin Dose 1 TAB; Start 03/08/16 at 21:00 Bisacodyl (Dulcolax Supp) 10 mg DAILY PRN DE CONSTIPATION; Start 03/08/16 at 18 :00 Lactulose (Enulose) 20 gm DAILY PRN PO CONSTIPATION; Start 03/08/16 at 18:00 Tramadol HCl (Ultram) 50 mg Q6H PRN PO PAIN LEVEL 6-10 Last administered on 20:31; Admin Dose 50 MG; Start 03/09/16 at 11:30 SIM GALEANO MD Mar 10, 2016 12:19
--- NOTE | 2016-03-10 12:22 | PN ---
Date/Time of Note Date/Time of Note DATE: 03/10/16 TIME: 12:15 Assessment/Plan VTE Prophylaxis VTE Prophylaxis Intervention: other (ASA) Lines/Catheters Urinary Cath still in place: No Assessment/Plan Assessment/Plan 1. Right displaced comminuted intertrochanteric hip fracture status post mechanical fall, treated with closed reduction and intramedullary rodding with impaired mobility/gait/ADLs. Continue PT/OT. TTWB RLE. Currently moderate assistance for bed mobility and transfers. Orthopedic surgery to re-evaluate today and for dressing change. 2. Acute postoperative pain. Pain controlled, continue prn tramadol and norco. Patient and nursing staff report no sedation, monitor. 3. Acute blood loss anemia. Continue to monitor hemoglobin/hematocrit. 4. Hypertension. Continue to monitor BP. 5. Insulin-dependent diabetes mellitus type 2. Blood sugars uncontrolled, internal medicine and endocrinology medically managing. 6. Coronary artery disease, status post cardiac stents. Continue medical management. 7. History of prostate cancer status post prostatectomy with postoperative urinary retention, resolved. Nursing reports voiding well at present, monitor. 8. Depression. Mood stable, continue lexapro. 9. Chronic congestive heart failure. Continue medical management, on diuretics. 10. Constipation. Continue stool softeners. Subjective 24 Hr Interval Summary Free Text/Dictation Rehab progress note Subjective: Reports minimal pain currently in right hip. Nursing reports some new blood on surgical dressing. ROS: Denies chest pain, no shortness of breath, no abdominal pain, no nausea, no vomiting, no chills, no headache, no dizziness. Exam/Review of Systems Vital Signs Vitals Vital Signs Date Time Temp Pulse Resp B/P Pulse Ox O2 Delivery O2 Flow Rate FiO2 03/09/16 19:58 98.3 87 19 159/74 97 03/08/16 15:59 Room Air Intake and Output 03/09/16 03/09/16 03/10/16 15:00 23:00 07:00 Intake Total 1120 ml 450 ml Output Total 1900 ml 900 ml Balance -780 ml -450 ml Exam General: Awake, alert, in no acute distress CV: Regular rate, s1s2 Lungs clear to auscultation, no wheezing Abdomen soft, nontender Extremities: Significant ecchymosis RLE, groin, right flank/abdomen - appears stable from yesterday. Calves nontender. Neuro: No new focal changes. Wiggles all toes on the right. Oriented x3. Results Result Diagram: 03/09/16 0615 03/09/16 0615 Results 24 hrs Laboratory Tests Test 03/09/16 12:20 03/09/16 17:19 03/09/16 20:57 03/10/16 07:53 Bedside Glucose 252 H 286 H 125 214 Test 03/10/16 12:05 Bedside Glucose 398 H Medications Medications Current Medications Aspirin (Ecotrin) 325 mg BID PO Last administered on 03/10/16 09:24; Admin Dose 325 MG; Start 03/08/16 at 21:00 Pregabalin (Lyrica) 25 mg BID PO Last administered on 03/10/16 09:24; Admin Dose 25 MG; Start 03/08/16 at 21:00 Zolpidem Tartrate (Ambien) 5 mg HS PRN PO INSOMNIA Last administered on 01:57; Admin Dose 5 MG; Start 03/08/16 at 17:00 Ondansetron HCl (Zofran Inj) 4 mg Q6H PRN IV NAUSEA AND/OR VOMITING; Start at 17:00 Lisinopril (Zestril) 20 mg BID PO Last administered on 03/10/16 09:28; Admin Dose 20 MG; Start 03/08/16 at 21:00 Magnesium Hydroxide (Milk Of Mag) 30 ml BID PRN PO CONSTIPATION; Start at 17:00 Metoprolol Succinate (Toprol Xl) 25 mg BID PO Last administered on 03/10/16 09 :25; Admin Dose 25 MG; Start 03/08/16 at 21:00 Miscellaneous Information 1 ea NOTE XX ; Start 03/08/16 at 17:00 Glucose (Glutose) 15 gm Q15M PRN PO DECREASED GLUCOSE; Start 03/08/16 at 17:00 Glucose (Glutose) 22.5 gm Q15M PRN PO DECREASED GLUCOSE; Start 03/08/16 at 17: 00 Dextrose (D50w Syringe) 25 ml Q15M PRN IV DECREASED GLUCOSE; Start 03/08/16 at 17:00 Dextrose (D50w Syringe) 50 ml Q15M PRN IV DECREASED GLUCOSE; Start 03/08/16 at 17:00 Glucagon (Glucagen) 1 mg Q15M PRN IM DECREASED GLUCOSE; Start 03/08/16 at 17:00 Glucose (Glutose) 15 gm Q15M PRN BUCCAL DECREASED GLUCOSE; Start 03/08/16 at 17 :00 Insulin Glargine (Lantus) 18 unit QAM SC Last administered on 03/10/16 09:35; Admin Dose 18 UNIT; Start 03/09/16 at 09:00 Diagnostic Test (Pha) (Accucheck) 1 ea 02 XX Last administered on 03/09/16 02: 00; Admin Dose 1 EA; Start 03/09/16 at 02:00 Acetaminophen/ Hydrocodone Bitart ([place] (5/325)) 1 tab Q6H PRN PO MODERATE PAIN LEVEL 4-6 Last administered on 03/10/16 05:20; Admin Dose 1 TAB; Start at 17:00 Furosemide (Lasix) 40 mg DAILY@06 PO Last administered on 03/10/16 05:20; Admin Dose 40 MG; Start 03/09/16 at 06:00 Famotidine (Pepcid) 20 mg DAILY PO Last administered on 03/10/16 09:37; Admin Dose 20 MG; Start 03/09/16 at 09:00 Escitalopram Oxalate (Lexapro) 10 mg DAILY PO Last administered on 03/10/16 09 :24; Admin Dose 10 MG; Start 03/09/16 at 09:00 Doxazosin Mesylate (Cardura) 2 mg DAILY@21 PO Last administered on 03/09/16 20 :32; Admin Dose 2 MG; Start 03/08/16 at 21:00 Docusate Sodium (Colace) 100 mg BID PO Last administered on 03/10/16 09:35; Admin Dose 100 MG; Start 03/08/16 at 21:00 Docusate Sodium (Colace) 100 mg Q12H PRN PO CONSTIPATION; Start 03/08/16 at 17: 00 Diphenhydramine HCl (Benadryl) 25 mg Q6H PRN PO PRURITUS; Start 03/08/16 at 17: 00 Acetaminophen (Tylenol Tab) 650 mg Q6H PRN PO PAIN LEVEL 1-3 OR FEVER; Start at 17:00 Bisacodyl (Dulcolax Supp) 10 mg Q12H PRN [place] CONSTIPATION; Start 03/08/16 at 17: 00 Cyanocobalamin (Vitamin B12) 100 mcg DAILY PO Last administered on 03/10/16 09 :29; Admin Dose 100 MCG; Start 03/09/16 at 09:00 Influenza Virus Vaccine (Fluzone) 0.5 ml ONCE ONCE IM* ; Start 03/11/16 at 09:00 ; Stop 03/11/16 at 09:01 Senna (Senokot) 1 tab QHS PO Last administered on 03/09/16 20:29; Admin Dose 1 TAB; Start 03/08/16 at 21:00 Bisacodyl (Dulcolax Supp) 10 mg DAILY PRN [place] CONSTIPATION; Start 03/08/16 at 18 :00 Lactulose (Enulose) 20 gm DAILY PRN PO CONSTIPATION; Start 03/08/16 at 18:00 Tramadol HCl (Ultram) 50 mg Q6H PRN PO PAIN LEVEL 6-10 Last administered on 20:31; Admin Dose 50 MG; Start 03/09/16 at 11:30 VIC GONZALEZ Mar 10, 2016 12:22
--- NOTE | 2016-03-10 13:11 | PN ---
Date/Time of Note Date/Time of Note DATE: 03/10/16 TIME: 13:01 Assessment/Plan VTE Prophylaxis VTE Prophylaxis Intervention: ambulation, SCD's, other (ASA 325mg BID) Lines/Catheters Urinary Cath still in place: No Assessment/Plan Assessment/Plan Extensive ecchymosis to the right side of the body from abdomen down to the midcalf region -Ecchymosis does not seem to be getting worse and remained unchanged Continue ASA/SCDs for DVT prophylaxis Dress change performed today. Mepilex over wound site. H/H low but stable and no secondary symptoms. Prevena wound VAC ordered to bedside per Dr. De La Rosa instructions and he will visit patient tomorrow to determine whether wound VAC will need to be applied. Weight-bear instructions given today. Partial weightbearing with touchdown weight and assisted ambulatory device. Next line continue physical therapy at rehab unit. Continue monitoring with internal medicine. Subjective 24 Hr Interval Summary Free Text/Dictation 75-year-old male status post ORIF of the right hip with intramedullary ja placement on 03/03/2016. Patient was discharged from hospital on 03/08/2016 and transferred to acute rehab. Patient doing well in rehab facility. Has mild pain complaints. Limited weightbearing. Patient was taken off Lovenox due to extensive ecchymosis along the right lateral side of the body. Patient was switched to aspirin 325 mg twice daily. Patient doing okay with aspirin. Patient did have blood draining through the gauze over dressing. Denies any shortness of breath, calf pain, difficulty breathing or chest pain. Skin: bruising (Extensive along right side abdomen down to the right mid calf region) Exam/Review of Systems Vital Signs Vitals Vital Signs Date Time Temp Pulse Resp B/P Pulse Ox O2 Delivery O2 Flow Rate FiO2 03/09/16 19:58 98.3 87 19 159/74 97 03/08/16 15:59 Room Air Intake and Output 03/09/16 03/09/16 03/10/16 15:00 23:00 07:00 Intake Total 1120 ml 450 ml Output Total 1900 ml 900 ml Balance -780 ml -450 ml Exam Wound site is clean dry and intact. No active bleeding to the wound sites along the right lateral thigh. No tenderness to palpation. No discharge. Extensive ecchymosis along the right side of the body beginning at the mid abdomen region and stopping to the right mid calf. Toes freely movable. 2+ dorsalis pedis and posterior tibialis pulses. Limited flexion to the right hip on examination today. Results Result Diagram: 03/09/16 0615 03/09/16 0615 Results 24 hrs Laboratory Tests Test 03/09/16 17:19 03/09/16 20:57 03/10/16 07:53 03/10/16 12:05 Bedside Glucose 286 H 125 214 398 H Medications Medications Current Medications Aspirin (Ecotrin) 325 mg BID PO Last administered on 03/10/16 09:24; Admin Dose 325 MG; Start 03/08/16 at 21:00 Pregabalin (Lyrica) 25 mg BID PO Last administered on 03/10/16 09:24; Admin Dose 25 MG; Start 03/08/16 at 21:00 Zolpidem Tartrate (Ambien) 5 mg HS PRN PO INSOMNIA Last administered on 01:57; Admin Dose 5 MG; Start 03/08/16 at 17:00 Ondansetron HCl (Zofran Inj) 4 mg Q6H PRN IV NAUSEA AND/OR VOMITING; Start at 17:00 Lisinopril (Zestril) 20 mg BID PO Last administered on 03/10/16 09:28; Admin Dose 20 MG; Start 03/08/16 at 21:00 Magnesium Hydroxide (Milk Of Mag) 30 ml BID PRN PO CONSTIPATION; Start at 17:00 Metoprolol Succinate (Toprol Xl) 25 mg BID PO Last administered on 03/10/16 09 :25; Admin Dose 25 MG; Start 03/08/16 at 21:00 Miscellaneous Information 1 ea NOTE XX ; Start 03/08/16 at 17:00 Glucose (Glutose) 15 gm Q15M PRN PO DECREASED GLUCOSE; Start 03/08/16 at 17:00 Glucose (Glutose) 22.5 gm Q15M PRN PO DECREASED GLUCOSE; Start 03/08/16 at 17: 00 Dextrose (D50w Syringe) 25 ml Q15M PRN IV DECREASED GLUCOSE; Start 03/08/16 at 17:00 Dextrose (D50w Syringe) 50 ml Q15M PRN IV DECREASED GLUCOSE; Start 03/08/16 at 17:00 Glucagon (Glucagen) 1 mg Q15M PRN IM DECREASED GLUCOSE; Start 03/08/16 at 17:00 Glucose (Glutose) 15 gm Q15M PRN BUCCAL DECREASED GLUCOSE; Start 03/08/16 at 17 :00 Diagnostic Test (Pha) (Accucheck) 1 ea 02 XX Last administered on 03/09/16 02: 00; Admin Dose 1 EA; Start 03/09/16 at 02:00 Acetaminophen/ Hydrocodone Bitart ([place] (5/325)) 1 tab Q6H PRN PO MODERATE PAIN LEVEL 4-6 Last administered on 03/10/16 05:20; Admin Dose 1 TAB; Start at 17:00 Furosemide (Lasix) 40 mg DAILY@06 PO Last administered on 03/10/16 05:20; Admin Dose 40 MG; Start 03/09/16 at 06:00 Famotidine (Pepcid) 20 mg DAILY PO Last administered on 03/10/16 09:37; Admin Dose 20 MG; Start 03/09/16 at 09:00 Escitalopram Oxalate (Lexapro) 10 mg DAILY PO Last administered on 03/10/16 09 :24; Admin Dose 10 MG; Start 03/09/16 at 09:00 Doxazosin Mesylate (Cardura) 2 mg DAILY@21 PO Last administered on 03/09/16 20 :32; Admin Dose 2 MG; Start 03/08/16 at 21:00 Docusate Sodium (Colace) 100 mg BID PO Last administered on 03/10/16 09:35; Admin Dose 100 MG; Start 03/08/16 at 21:00 Docusate Sodium (Colace) 100 mg Q12H PRN PO CONSTIPATION; Start 03/08/16 at 17: 00 Diphenhydramine HCl (Benadryl) 25 mg Q6H PRN PO PRURITUS; Start 03/08/16 at 17: 00 Acetaminophen (Tylenol Tab) 650 mg Q6H PRN PO PAIN LEVEL 1-3 OR FEVER; Start at 17:00 Bisacodyl (Dulcolax Supp) 10 mg Q12H PRN [place] CONSTIPATION; Start 03/08/16 at 17: 00 Cyanocobalamin (Vitamin B12) 100 mcg DAILY PO Last administered on 03/10/16 09 :29; Admin Dose 100 MCG; Start 03/09/16 at 09:00 Influenza Virus Vaccine (Fluzone) 0.5 ml ONCE ONCE IM* ; Start 03/11/16 at 09:00 ; Stop 03/11/16 at 09:01 Senna (Senokot) 1 tab QHS PO Last administered on 03/09/16 20:29; Admin Dose 1 TAB; Start 03/08/16 at 21:00 Bisacodyl (Dulcolax Supp) 10 mg DAILY PRN [place] CONSTIPATION; Start 03/08/16 at 18 :00 Lactulose (Enulose) 20 gm DAILY PRN PO CONSTIPATION; Start 03/08/16 at 18:00 Tramadol HCl (Ultram) 50 mg Q6H PRN PO PAIN LEVEL 6-10 Last administered on 20:31; Admin Dose 50 MG; Start 03/09/16 at 11:30 Insulin Glargine (Lantus) 22 unit QAM SC ; Start 03/11/16 at 09:00 SAPPHIRE DANIEL PA-C Mar 10, 2016 13:11
[2016-03-10] MEDS: metFORMIN 500 MG TAB PO SCH (17:33)
[2016-03-10 20:00] VITALS: BP 155/73; RESP 21
[2016-03-10] MEDS: SENNA TAB PO SCH (20:21)
[2016-03-10] MEDS: traMADol 50 MG TAB PO PRN (20:22)
[2016-03-10] MEDS: DOXAZOSIN 2 MG TAB PO SCH (20:23)
[2016-03-11] MEDS: ACCUCHECK AT 2AM (Patients on SS coverage) XX SCH (02:05)
[2016-03-11] MEDS: FUROSEMIDE 40 MG TAB PO SCH (06:24)
--- NOTE | 2016-03-11 07:09 | CONS ---
DATE OF ADMISSION: 03/08/2016 DATE OF CONSULTATION: 03/09/2016 REASON FOR CONSULTATION: Medical management during the course of acute rehabilitation. HISTORY OF PRESENT ILLNESS: This is a 75-year-old gentleman with past medical history of hypertensi on, coronary artery disease, myocardial infarction, prostate cancer status post TURP, who was admitt ed to [facility] on 03/03/2016 after having a mechanical fall when he was at work. The patient landed on his right hip, presented to the ED. The patient had a CT of the right femur that showed a fracture of the right side. The patient was seen and evaluated by the orthopedic emilie maryn during the course of the hospital and after evaluation by the quality control lab technician and obtaining a 2-D echocardiogram which showed ejection fraction 45of % to 50% with stage I diastolic dysfunction. Aft er signing consent, the patient was taken to OR on 03/05/2016, for closed reduction and intramedulla ry rodding of right intertrochanteric hip fracture. Patient tolerated the procedure well and was ta marta to recovery room and was seen and evaluated by physical therapy on the following day. On 2016, the patient was cleared to be discharged to a custodial facility, although as per davonte low's request, the patient was discharged to acute rehab. At this time, the patient is lying in bed c omfortably without any distress. He is awake, alert, oriented. He is able to answer my questions p roperly. PAST MEDICAL AND SURGICAL HISTORY: 1. Comminuted right intertrochanteric hip fracture. 2. Diabetes mellitus. 3. Dyslipidemia. 4. Hypertension. 5. Coronary artery disease. 6. History of myocardial infarction. 7. History of prostate cancer. SURGERIES: 1. TURP. 2. Closed reduction and intramedullary rodding of the right intertrochanteric fracture. MEDICATIONS: 1. Aspirin. 2. Lyrica. 3. Ambien. 4. Zofran. 5. Lisinopril. 6. Metformin. 7. Toprol-XL. 8. Lantus. 9. [place] 10. Lasix. 11. Pepcid. 12. Lexapro 13. Cardura. 14. Colace. 15. Vitamin B12. 16. Senna. 17. Ultram. ALLERGIES: NO KNOWN DRUG ALLERGIES. FAMILY HISTORY: Noncontributory secondary to advanced age. SOCIAL HISTORY: Negative x3 for smoking, alcohol, illicit drugs. REVIEW OF SYSTEMS: Denies any chest pain, shortness of breath, nausea, vomiting, diarrhea. No head ache, dizziness, numbness, no weakness. No change in visual acuity, diplopia, photophobia. No abdo flaca pain, no change in color of stool. No restricted range of motion in his neck or upper extremi ty. Decreased range of motion in his right lower extremity. The patient states that he has been dobbins ving discomfort and pain during ambulation, although at rest he does not have any pain in his right hip. PHYSICAL EXAMINATION: VITAL SIGNS: Temperature 97.4, pulse 57, respiration 20, blood pressure 134/71, oxygen saturation 9 3% on room air. GENERAL APPEARANCE: The patient is lying in bed comfortably without acute distress. He is awake, a lert, oriented. He is able to answer my questions properly. EYES AND ENT: Conjunctivae and lids are normal. Pupils are normal. Extraocular normal. Hearing g rossly normal. Lips are normal. Oral mucosa is moist. NECK: Supple. Trachea is midline. No lymphadenopathy. RESPIRATORY: Respiratory effort is normal. Clear to auscultate bilaterally. CARDIOVASCULAR: Normal S1, S2. Regular rhythm and rate. No murmur, no bruits. Peripheral pulses, radial pulses palpable. Cap refill is normal. CHEST: Normal expansion of thorax during inspiration. GASTROINTESTINAL: Abdomen is soft, nontender, not distended. Bowel sounds present. No guarding, n o rebound. GENITOURINARY: Deferred. MUSCULOSKELETAL: Upper extremity within normal limits. Left lower extremity within normal limits. Right lower extremity: The patient is status post ____. The surgical site is bruised. No evidenc e of active bleeding. NEUROLOGIC: Cranial nerves II through XII are grossly intact. PSYCHIATRIC: Normal judgment and insight. Alert and oriented x3. Mood and affect is normal. LABORATORY WORK AND IMAGING: WBC 8.3, hemoglobin 10.0, hematocrit 28.5, platelets 193. Sodium 136, potassium 4.0, chloride 101, bicarbonate 28, BUN 34, chloride 1.09, glucose 158, calcium 8.4, total bilirubin 1.8, direct bilirubin 0, indirect bilirubin 1.8, albumin 2.5. ASSESSMENT AND PLAN: 1. Status post fall. 2. Status post comminuted right intertrochanteric hip fracture, status post closed reduction and in tramedullary rodding of right intertrochanteric hip fracture. The patient has been transferred to a [facility] rehabilitation for physical therapy. Continue pain management. Continue postoperative care. 3. Hypertension, well controlled on medical management. 4. Diabetes mellitus. Continue Lantus insulin, ____ low carb diet. 5. History of coronary artery disease. Continue Plavix and aspirin and beta phillip. 6. Hypertension. Continue amlodipine, Coreg. 7. Vitamin B12 deficiency. Continue vitamin B12 supplementation. 8. We will continue to monitor patient closely. Further recommendations, management and treatment as per clinical course. 9. For deep venous thrombosis prophylaxis, on aspirin and Plavix. Dictated By: SIM PEREYRA/VICENTA Conf#: [id number] DID#: [id number]
[2016-03-11 07:30] VITALS: BP 163/73; RESP 18
[2016-03-11 07:49] LABS: POTASSIUM 3.7 mmol/L (3.5-5.1)
[2016-03-11 07:50] LABS: BASOPHILS % 0.1 % (0.0-2.0); EOSINOPHILS # 0.2 10^3/ul (0.0-0.5); EOSINOPHILS % 2.5 % (0.0-7.0); HEMATOCRIT 31.7 % (42.0-52.0); HEMOGLOBIN 11.1 g/dl (14.0-18.0); LYMPHOCYTES # 0.9 10^3/ul (0.8-2.9); LYMPHOCYTES % 11.5 % (15.0-51.0); MEAN CORPUSCULAR HEMOGLOBIN 31.6 pg (29.0-33.0); MEAN CORPUSCULAR VOLUME 90.2 fl (82.0-101.0); MEAN PLATELET VOLUME 8.1 fl (7.4-10.4); MONOCYTE # 0.9 10^3/ul (0.3-0.9); MONOCYTES % 12.3 % (0.0-11.0); NEUTROPHIL # 5.6 10^3/ul (1.6-7.5); NEUTROPHILS % 73.6 % (39.0-77.0); PLATELET COUNT 250 10^3/UL (140-440); RED BLOOD COUNT 3.52 10^6/ul (4.70-6.10); RED CELL DISTRIBUTION WIDTH 14.4 % (11.5-14.5); UNCORRECTED WBC 7.6 10^3/ul (4.8-10.8); WHITE BLOOD COUNT 7.6 10^3/ul (4.8-10.8)
[2016-03-11 07:51] LABS: CREATININE 0.96 mg/dl (0.61-1.24)
[2016-03-11 07:52] LABS: CALCIUM 8.5 mg/dl (8.4-10.2)
[2016-03-11 07:58] LABS: CONDITION 1
[2016-03-11] MEDS: INSULIN ASPART [NOVOLOG] 3 ML PEN SC SCH ×2 (08:28→18:06)
[2016-03-11] MEDS: Insulin NOVOLOG SS MILD Algorithm (SS with meals and bedtime) SC SCH ×4 (08:28→20:44)
[2016-03-11] MEDS: CYANOCOBALAMIN 100 MCG TAB PO SCH (08:32)
[2016-03-11] MEDS: ESCITALOPRAM 10 MG TAB PO SCH (08:32)
[2016-03-11] MEDS: PREGABALIN 25 MG CAP PO SCH ×2 (08:32→20:31)
[2016-03-11] MEDS: FAMOTIDINE 20 MG TAB PO SCH (08:33)
[2016-03-11] MEDS: METOPROLOL (XL) 25 MG TAB PO SCH ×2 (08:33→20:31)
[2016-03-11] MEDS: ASPIRIN (EC) 325 MG TAB PO SCH ×2 (08:33→20:27)
[2016-03-11] MEDS: DOCUSATE SODIUM 100 MG CAP PO SCH ×2 (08:33→20:44)
[2016-03-11] MEDS: LISINOPRIL 20 MG TAB PO SCH ×2 (08:34→20:31)
[2016-03-11] MEDS ORDERED: INSULIN GLARGINE [LANtus] 3 ML PEN SC SCH (09:00)
[2016-03-11] MEDS ORDERED: INFLUENZA VIRUS VACCINE 0.5 ML SYG IM* ONE (09:00)
--- NOTE | 2016-03-11 09:00 | PN ---
Date/Time of Note Date/Time of Note DATE: 03/11/16 TIME: 08:57 Assessment/Plan Lines/Catheters Ch in Place (from Nrs): No Assessment/Plan Assessment/Plan Stable in ARU s/p closed reduction IM rodding, right hip fx -hold plavix but continue with ASA/SCDs -OOB with PT -prevena wound vac applied today, dressings changed -continue with treatment plan as discussed Subjective 24 Hr Interval Summary Doing well in ARU. Denies significant pain. Ecchymosis extensive but stable. Denies f/c. Mild drainage from incision. Exam/Review of Systems Vital Signs Vitals Vital Signs Date Time Temp Pulse Resp B/P Pulse Ox O2 Delivery O2 Flow Rate FiO2 03/10/16 20:00 98.0 69 21 155/73 97 03/08/16 15:59 Room Air Intake and Output 03/10/16 03/10/16 03/11/16 15:00 23:00 07:00 Intake Total 1670 ml 300 ml Output Total 1890 ml 800 ml Balance -220 ml -500 ml Exam Free Text/Dictation Dressing dry Mild serious drainage from middle incision. No pus noted Extensive ecchymosis on right side secondary to plavix Incision otherwise clean, dry, and intact without redness or drainage 5/5 Quadriceps, Tibialis Anterior, EHL, Gastroc, Soleus, Peroneals Normal sensation Palpable DT/PT, CR <2 sec No distal edema Results Result Diagram: 03/11/16 0615 03/11/16 0615 GAIL YEUNG PA-C Mar 11, 2016 08:59
[2016-03-11] MEDS ORDERED: INSULIN GLARGINE [LANtus] 3 ML PEN SC ONE (10:00)
[2016-03-11] MEDS ORDERED: INSULIN ASPART [NOVOLOG] 3 ML PEN SC SCH (12:00)
--- NOTE | 2016-03-11 12:27 | CONS ---
Date/Time of Note Date/Time of Note DATE: 03/11/16 TIME: 12:26 Consult Date/Type/Reason Admit Date/Time Mar 08, 2016 at 15:40 Initial Consult Date Objective Vital Signs Date Time Temp Pulse Resp B/P Pulse Ox O2 Delivery O2 Flow Rate FiO2 03/10/16 20:00 98.0 69 21 155/73 97 03/08/16 15:59 Room Air Intake and Output 03/10/16 03/10/16 03/11/16 15:00 23:00 07:00 Intake Total 1670 ml 300 ml Output Total 1890 ml 800 ml Balance -220 ml -500 ml INTERDISCIPLINARY TEAM CONFERENCE BOWEL- Cont BLADDER-Cont SKIN- incision site clean OT- DRESSING-mod BATHING-mod TOILETING-mod PT- BED MOBILITY-mod TRANSFERS-mod AMBULATION-mod W.C. MOBILITY-min A/P- Interdisciplinary team conference held today. Please see interdisciplinary sheet. Working toward d.c. on 03/21 with post discharge follow up of physical therapy, occupational therapy. Results/Medications Result Diagram: 03/11/16 0615 03/11/16 0615 Results 24 hrs Laboratory Tests Test 03/10/16 17:32 03/10/16 20:29 03/11/16 02:03 03/11/16 06:15 Bedside Glucose 211 202 280 H Anion Gap 9 Basophils # 0.0 Basophils % 0.1 Blood Urea Nitrogen 29 H Calcium Level 8.5 Carbon Dioxide Level 33 H Chloride Level 97 Creatinine 0.96 Eosinophils # 0.2 Eosinophils % 2.5 Glucose Level 245 H Hematocrit 31.7 L Hemoglobin 11.1 L Lymphocytes # 0.9 Lymphocytes % 11.5 L Mean Corpuscular Hemoglobin 31.6 Mean Corpuscular Hemoglobin Concent 35.0 Mean Corpuscular Volume 90.2 Mean Platelet Volume 8.1 Monocytes # 0.9 Monocytes % 12.3 H Neutrophils # 5.6 Neutrophils % 73.6 Nucleated Red Blood Cells # 0.0 Nucleated Red Blood Cells % 0.0 Platelet Count 250 # Potassium Level 3.7 Red Blood Count 3.52 L Red Cell Distribution Width 14.4 Sodium Level 135 White Blood Count 7.6 Test 03/11/16 07:51 Bedside Glucose 297 H Medications Current Medications Aspirin (Ecotrin) 325 mg BID PO Last administered on 03/11/16t 08:33; Admin Dose 325 MG; Start 03/08/16 at 21:00 Pregabalin (Lyrica) 25 mg BID PO Last administered on 03/11/16 08:32; Admin Dose 25 MG; Start 03/08/16 at 21:00 Zolpidem Tartrate (Ambien) 5 mg HS PRN PO INSOMNIA Last administered on 22:18; Admin Dose 5 MG; Start 03/08/16 at 17:00 Ondansetron HCl (Zofran Inj) 4 mg Q6H PRN IV NAUSEA AND/OR VOMITING; Start at 17:00 Lisinopril (Zestril) 20 mg BID PO Last administered on 03/11/16 08:34; Admin Dose 20 MG; Start 03/08/16 at 21:00 Magnesium Hydroxide (Milk Of Mag) 30 ml BID PRN PO CONSTIPATION; Start at 17:00 Metoprolol Succinate (Toprol Xl) 25 mg BID PO Last administered on 03/11/16 08 :33; Admin Dose 25 MG; Start 03/08/16 at 21:00 Miscellaneous Information 1 ea NOTE XX ; Start 03/08/16 at 17:00 Glucose (Glutose) 15 gm Q15M PRN PO DECREASED GLUCOSE; Start 03/08/16 at 17:00 Glucose (Glutose) 22.5 gm Q15M PRN PO DECREASED GLUCOSE; Start 03/08/16 at 17: 00 Dextrose (D50w Syringe) 25 ml Q15M PRN IV DECREASED GLUCOSE; Start 03/08/16 at 17:00 Dextrose (D50w Syringe) 50 ml Q15M PRN IV DECREASED GLUCOSE; Start 03/08/16 at 17:00 Glucagon (Glucagen) 1 mg Q15M PRN IM DECREASED GLUCOSE; Start 03/08/16 at 17:00 Glucose (Glutose) 15 gm Q15M PRN BUCCAL DECREASED GLUCOSE; Start 03/08/16 at 17 :00 Diagnostic Test (Pha) (Accucheck) 1 ea 02 XX Last administered on 03/11/16 02: 05; Admin Dose 1 EA; Start 03/09/16 at 02:00 Acetaminophen/ Hydrocodone Bitart ([place] (5/325)) 1 tab Q6H PRN PO MODERATE PAIN LEVEL 4-6 Last administered on 03/10/16 05:20; Admin Dose 1 TAB; Start at 17:00 Furosemide (Lasix) 40 mg DAILY@06 PO Last administered on 03/11/16 06:24; Admin Dose 40 MG; Start 03/09/16 at 06:00 Famotidine (Pepcid) 20 mg DAILY PO Last administered on 03/11/16 08:33; Admin Dose 20 MG; Start 03/09/16 at 09:00 Escitalopram Oxalate (Lexapro) 10 mg DAILY PO Last administered on 03/11/16 08 :32; Admin Dose 10 MG; Start 03/09/16 at 09:00 Doxazosin Mesylate (Cardura) 2 mg DAILY@21 PO Last administered on 03/10/16 20 :23; Admin Dose 2 MG; Start 03/08/16 at 21:00 Docusate Sodium (Colace) 100 mg BID PO Last administered on 03/11/16 08:33; Admin Dose 100 MG; Start 03/08/16 at 21:00 Docusate Sodium (Colace) 100 mg Q12H PRN PO CONSTIPATION; Start 03/08/16 at 17: 00 Diphenhydramine HCl (Benadryl) 25 mg Q6H PRN PO PRURITUS; Start 03/08/16 at 17: 00 Acetaminophen (Tylenol Tab) 650 mg Q6H PRN PO PAIN LEVEL 1-3 OR FEVER; Start at 17:00 Bisacodyl (Dulcolax Supp) 10 mg Q12H PRN [place] CONSTIPATION; Start 03/08/16 at 17: 00 Cyanocobalamin (Vitamin B12) 100 mcg DAILY PO Last administered on 03/11/16 08 :32; Admin Dose 100 MCG; Start 03/09/16 at 09:00 Senna (Senokot) 1 tab QHS PO Last administered on 03/10/16 20:21; Admin Dose 1 TAB; Start 03/08/16 at 21:00 Bisacodyl (Dulcolax Supp) 10 mg DAILY PRN [place] CONSTIPATION; Start 03/08/16 at 18 :00 Lactulose (Enulose) 20 gm DAILY PRN PO CONSTIPATION; Start 03/08/16 at 18:00 Tramadol HCl (Ultram) 50 mg Q6H PRN PO PAIN LEVEL 6-10 Last administered on 1/ 29/17at 20:22; Admin Dose 50 MG; Start 03/09/16 at 11:30 Insulin Glargine (Lantus) 26 unit QAM SC ; Start 03/12/16 at 09:00 GUERDA LYNN MD Mar 11, 2016 12:27 GUERDA LYNN MD Mar 11, 2016 12:27
--- NOTE | 2016-03-11 14:26 | PN ---
Date/Time of Note Date/Time of Note DATE: 03/11/16 TIME: 14:25 Assessment/Plan VTE Prophylaxis VTE Prophylaxis Intervention: other Lines/Catheters Urinary Cath still in place: No Assessment/Plan Chief Complaint/Hosp Course Chief Complaint/Hosp Course 1. Mildly comminuted and displaced right intertrochanteric fracture of the femur. Status post closed reduction and intramedullary rodding on 03/05/2016. Continue pain control. Postoperative care as per orthopedic surgery. Continue physical therapy. 2. Type 2 diabetes mellitus, uncontrolled. Hemoglobin A1c 9.4. Will adjust insulin dosing to obtain optimal blood sugar control. 3. Essential hypertension. Continue antihypertensives. Blood pressure fairly well controlled. 4. History of depression. Continue SSRIs. 5. CAD, status post stenting in the past. Continue aspirin. 6. Acute kidney injury. Etiology unclear. Most probably secondary to hemodynamics versus dehydration. Resolved. 7. History of prostate cancer. S/P surgical resection and radiation. 8. Normocytic, normochromic anemia. Underlying iron deficiency. Continue iron supplements. Transfuse PRBCs as needed. 9. DVT prophylaxis. Aspirin and SCDs. 10. Gastrointestinal prophylaxis with histamine 2 receptor blockers. We will continue monitor patient closely for recommendation management treatment as clinical course Problems: Subjective 24 Hr Interval Summary Free Text/Dictation Patient denies of any chest pain or shortness of breath Complains of having right hip pain during ambulation Tolerating oral intake Exam/Review of Systems Vital Signs Vitals Vital Signs Date Time Temp Pulse Resp B/P Pulse Ox O2 Delivery O2 Flow Rate FiO2 03/10/16 20:00 98.0 69 21 155/73 97 03/08/16 15:59 Room Air Intake and Output 03/10/16 03/10/16 03/11/16 15:00 23:00 07:00 Intake Total 1670 ml 300 ml Output Total 1890 ml 800 ml Balance -220 ml -500 ml Exam General: The patient is well-developed, Not in acute distress. HEENT: Atraumatic, normocephalic. The pupils are equal and round . Neck: Supple with full range of motion. Chest: Normal expansion of the thorax during inspiration Lungs: Clear to auscultation bilaterally Heart: Normal S1-S2, Regular rhythm and rate. Abdomen: Soft , nontender, nondistended , bowel sounds are present. Extremities: Normal to inspection, no edema no cyanosis, right hip Ecchymosis extensive but stable. Mild drainage from incision. Neurologic: Normal mental status,The patient is awake, alert and oriented . Results Result Diagram: 03/11/16 0615 03/11/16 0615 Results 24 hrs Laboratory Tests Test 03/10/16 17:32 03/10/16 20:29 03/11/16 02:03 03/11/16 06:15 Bedside Glucose 211 202 280 H Anion Gap 9 Basophils # 0.0 Basophils % 0.1 Blood Urea Nitrogen 29 H Calcium Level 8.5 Carbon Dioxide Level 33 H Chloride Level 97 Creatinine 0.96 Eosinophils # 0.2 Eosinophils % 2.5 Glucose Level 245 H Hematocrit 31.7 L Hemoglobin 11.1 L Lymphocytes # 0.9 Lymphocytes % 11.5 L Mean Corpuscular Hemoglobin 31.6 Mean Corpuscular Hemoglobin Concent 35.0 Mean Corpuscular Volume 90.2 Mean Platelet Volume 8.1 Monocytes # 0.9 Monocytes % 12.3 H Neutrophils # 5.6 Neutrophils % 73.6 Nucleated Red Blood Cells # 0.0 Nucleated Red Blood Cells % 0.0 Platelet Count 250 # Potassium Level 3.7 Red Blood Count 3.52 L Red Cell Distribution Width 14.4 Sodium Level 135 White Blood Count 7.6 Test 03/11/16 07:51 03/11/16 12:29 Bedside Glucose 297 H 186 Medications Medications Current Medications Aspirin (Ecotrin) 325 mg BID PO Last administered on 03/11/16 08:33; Admin Dose 325 MG; Start 03/08/16 at 21:00 Pregabalin (Lyrica) 25 mg BID PO Last administered on 03/11/16 08:32; Admin Dose 25 MG; Start 03/08/16 at 21:00 Zolpidem Tartrate (Ambien) 5 mg HS PRN PO INSOMNIA Last administered on 22:18; Admin Dose 5 MG; Start 03/08/16 at 17:00 Ondansetron HCl (Zofran Inj) 4 mg Q6H PRN IV NAUSEA AND/OR VOMITING; Start at 17:00 Lisinopril (Zestril) 20 mg BID PO Last administered on 03/11/16 08:34; Admin Dose 20 MG; Start 03/08/16 at 21:00 Magnesium Hydroxide (Milk Of Mag) 30 ml BID PRN PO CONSTIPATION; Start at 17:00 Metoprolol Succinate (Toprol Xl) 25 mg BID PO Last administered on 03/11/16 08 :33; Admin Dose 25 MG; Start 03/08/16 at 21:00 Miscellaneous Information 1 ea NOTE XX ; Start 03/08/16 at 17:00 Glucose (Glutose) 15 gm Q15M PRN PO DECREASED GLUCOSE; Start 03/08/16 at 17:00 Glucose (Glutose) 22.5 gm Q15M PRN PO DECREASED GLUCOSE; Start 03/08/16 at 17: 00 Dextrose (D50w Syringe) 25 ml Q15M PRN IV DECREASED GLUCOSE; Start 03/08/16 at 17:00 Dextrose (D50w Syringe) 50 ml Q15M PRN IV DECREASED GLUCOSE; Start 03/08/16 at 17:00 Glucagon (Glucagen) 1 mg Q15M PRN IM DECREASED GLUCOSE; Start 03/08/16 at 17:00 Glucose (Glutose) 15 gm Q15M PRN BUCCAL DECREASED GLUCOSE; Start 03/08/16 at 17 :00 Diagnostic Test (Pha) (Accucheck) 1 ea 02 XX Last administered on 03/11/16 02: 05; Admin Dose 1 EA; Start 03/09/16 at 02:00 Acetaminophen/ Hydrocodone Bitart ([place] (5/325)) 1 tab Q6H PRN PO MODERATE PAIN LEVEL 4-6 Last administered on 03/10/16 05:20; Admin Dose 1 TAB; Start at 17:00 Furosemide (Lasix) 40 mg DAILY@06 PO Last administered on 03/11/16 06:24; Admin Dose 40 MG; Start 03/09/16 at 06:00 Famotidine (Pepcid) 20 mg DAILY PO Last administered on 03/11/16 08:33; Admin Dose 20 MG; Start 03/09/16 at 09:00 Escitalopram Oxalate (Lexapro) 10 mg DAILY PO Last administered on 03/11/16 08 :32; Admin Dose 10 MG; Start 03/09/16 at 09:00 Doxazosin Mesylate (Cardura) 2 mg DAILY@21 PO Last administered on 03/10/16 20 :23; Admin Dose 2 MG; Start 03/08/16 at 21:00 Docusate Sodium (Colace) 100 mg BID PO Last administered on 03/11/16 08:33; Admin Dose 100 MG; Start 03/08/16 at 21:00 Docusate Sodium (Colace) 100 mg Q12H PRN PO CONSTIPATION; Start 03/08/16 at 17: 00 Diphenhydramine HCl (Benadryl) 25 mg Q6H PRN PO PRURITUS; Start 03/08/16 at 17: 00 Acetaminophen (Tylenol Tab) 650 mg Q6H PRN PO PAIN LEVEL 1-3 OR FEVER; Start at 17:00 Bisacodyl (Dulcolax Supp) 10 mg Q12H PRN [place] CONSTIPATION; Start 03/08/16 at 17: 00 Cyanocobalamin (Vitamin B12) 100 mcg DAILY PO Last administered on 03/11/16 08 :32; Admin Dose 100 MCG; Start 03/09/16 at 09:00 Senna (Senokot) 1 tab QHS PO Last administered on 03/10/16 20:21; Admin Dose 1 TAB; Start 03/08/16 at 21:00 Bisacodyl (Dulcolax Supp) 10 mg DAILY PRN [place] CONSTIPATION; Start 03/08/16 at 18 :00 Lactulose (Enulose) 20 gm DAILY PRN PO CONSTIPATION; Start 03/08/16 at 18:00 Tramadol HCl (Ultram) 50 mg Q6H PRN PO PAIN LEVEL 6-10 Last administered on 20:22; Admin Dose 50 MG; Start 03/09/16 at 11:30 Insulin Glargine (Lantus) 28 unit QAM SC ; Start 03/12/16 at 09:00; Status UNV Metformin HCl (Glucophage) 1,000 mg BID PO ; Start 03/11/16 at 21:00; Status UNV SIM GALEANO MD Mar 11, 2016 14:26
[2016-03-11] MEDS: metFORMIN 500 MG TAB PO SCH (18:06)
[2016-03-11 20:00] VITALS: BP 144/77; RESP 19
[2016-03-11] MEDS: ZOLPIDEM 5 MG TAB PO PRN (20:27)
[2016-03-11] MEDS: DOXAZOSIN 2 MG TAB PO SCH (20:30)
[2016-03-11] MEDS: SENNA TAB PO SCH (20:45)
--- NOTE | 2016-03-11 21:58 | PN ---
DATE: 03/11/2016 SUBJECTIVE: Discussed with patient's . Discussed with the staff. The patient with no chest pa in or pressure, no palpitation. Denies PND, orthopnea to me. Hip pain is improving. MEDICATIONS: Reviewed. PHYSICAL EXAMINATION: VITAL SIGNS: Temperature 98, heart rate of 63, blood pressure 160/73, respiratory rate of 18. HEENT: Normocephalic, atraumatic. Pupils equal and round. CARDIOVASCULAR: Regular rate and rhythm, systolic murmur. PULMONARY: No wheezes or rhonchi. GASTROINTESTINAL: Soft, nontender. EXTREMITIES: Trivial edema. NEUROLOGIC: Awake, responds appropriately. PSYCHIATRIC: Appeared to be calm and pleasant. RIGHT HIP: Status post surgery with edema. LABORATORY: WBC 7.6, hemoglobin 11.1, platelets of 250. Sodium 135, potassium 3.7, BUN of 29, crea tinine 0.92, glucose of 245. ASSESSMENT AND PLAN: 1. Coronary artery disease. 2. History of myocardial infarction. 3. History of congestive heart failure secondary to systolic and diastolic dysfunction, currently s table. 4. Hip fracture, status post surgery. 5. History of percutaneous coronary intervention. 6. History of prostate cancer. 7. Hypertension. RECOMMENDATIONS: Will continue the beta phillip and ALEJANDRA inhibitor. Diabetic control as per [facility]. Continue physical therapy and rehab. Dictated By: LORETTA MENDOZA MD AV/VICENTA Conf#: [id number] DID#: [id number] CC: SIM GALEANO MD;*EndCC*
[2016-03-12] MEDS: ACCUCHECK AT 2AM (Patients on SS coverage) XX SCH (02:12)
[2016-03-12] MEDS: FUROSEMIDE 40 MG TAB PO SCH (06:53)
[2016-03-12 07:30] VITALS: BP 179/86; RESP 18
[2016-03-12 07:55] LABS: POTASSIUM 3.9 mmol/L (3.5-5.1)
[2016-03-12 07:58] LABS: CREATININE 1.07 mg/dl (0.61-1.24)
[2016-03-12 07:59] LABS: CALCIUM 8.7 mg/dl (8.4-10.2)
[2016-03-12] MEDS: Insulin NOVOLOG SS MILD Algorithm (SS with meals and bedtime) SC SCH ×4 (08:28→20:34)
[2016-03-12] MEDS: INSULIN ASPART [NOVOLOG] 3 ML PEN SC SCH ×3 (08:29→17:49)
[2016-03-12] MEDS: CYANOCOBALAMIN 100 MCG TAB PO SCH (08:33)
[2016-03-12] MEDS: ASPIRIN (EC) 325 MG TAB PO SCH ×2 (08:33→20:33)
[2016-03-12] MEDS: LISINOPRIL 20 MG TAB PO SCH ×2 (08:33→20:33)
[2016-03-12] MEDS: FAMOTIDINE 20 MG TAB PO SCH (08:33)
[2016-03-12] MEDS: metFORMIN 500 MG TAB PO SCH ×2 (08:33→17:43)
[2016-03-12] MEDS: ESCITALOPRAM 10 MG TAB PO SCH (08:34)
[2016-03-12] MEDS: DOCUSATE SODIUM 100 MG CAP PO SCH ×2 (08:34→20:33)
[2016-03-12] MEDS: METOPROLOL (XL) 25 MG TAB PO SCH ×2 (08:34→20:34)
[2016-03-12 08:35] LABS: BASOPHILS % 0.3 % (0.0-2.0); EOSINOPHILS # 0.3 10^3/ul (0.0-0.5); HEMOGLOBIN 11.4 g/dl (14.0-18.0); LYMPHOCYTES # 1.2 10^3/ul (0.8-2.9); LYMPHOCYTES % 14.1 % (15.0-51.0); MEAN CORPUSCULAR HEMOGLOBIN 31.4 pg (29.0-33.0); MEAN CORPUSCULAR HGB CONC 33.5 g/dl (32.0-37.0); MEAN CORPUSCULAR VOLUME 93.7 fl (82.0-101.0); MEAN PLATELET VOLUME 7.9 fl (7.4-10.4); MONOCYTE # 1.1 10^3/ul (0.3-0.9); MONOCYTES % 12.9 % (0.0-11.0); NEUTROPHIL # 5.8 10^3/ul (1.6-7.5); NEUTROPHILS % 69.7 % (39.0-77.0); PLATELET COUNT 253 10^3/UL (140-440); RED BLOOD COUNT 3.63 10^6/ul (4.70-6.10); RED CELL DISTRIBUTION WIDTH 14.6 % (11.5-14.5); UNCORRECTED WBC 8.3 10^3/ul (4.8-10.8); WHITE BLOOD COUNT 8.3 10^3/ul (4.8-10.8)
[2016-03-12] MEDS: PREGABALIN 25 MG CAP PO SCH ×2 (08:35→20:33)
[2016-03-12 08:51] LABS: CONDITION 1; LH ANALYZER COMMENTS 1
[2016-03-12] MEDS ORDERED: INSULIN GLARGINE [LANtus] 3 ML PEN SC SCH ×2 (09:00)
--- NOTE | 2016-03-12 12:05 | CONS ---
Date/Time of Note Date/Time of Note DATE: 03/12/16 TIME: 12:04 Consult Date/Type/Reason Admit Date/Time Mar 08, 2016 at 15:40 Subjective Reports some LBP Objective pulm- cta mod assist transfer Vital Signs Date Time Temp Pulse Resp B/P Pulse Ox O2 Delivery O2 Flow Rate FiO2 03/12/16 07:30 98.4 60 18 179/86 95 03/08/16 15:59 Room Air Intake and Output 03/11/16 03/11/16 03/12/16 15:00 23:00 07:00 Intake Total 620 ml Output Total 1360 ml Balance -740 ml Results/Medications Result Diagram: 03/12/16 0635 03/12/16 0635 Results 24 hrs Laboratory Tests Test 03/11/16 12:29 03/11/16 17:39 03/11/16 20:26 03/12/16 02:06 Bedside Glucose 186 184 186 83 Test 03/12/16 06:35 03/12/16 08:04 03/12/16 11:58 Anion Gap 9 Basophils # 0.0 Basophils % 0.3 Blood Morphology Comment Blood Urea Nitrogen 29 H Calcium Level 8.7 Carbon Dioxide Level 32 H Chloride Level 99 Creatinine 1.07 Eosinophils # 0.3 Eosinophils % 3.0 Glucose Level 146 # Hematocrit 34.0 L Hemoglobin 11.4 L Lymphocytes # 1.2 Lymphocytes % 14.1 L Mean Corpuscular Hemoglobin 31.4 Mean Corpuscular Hemoglobin Concent 33.5 Mean Corpuscular Volume 93.7 Mean Platelet Volume 7.9 Monocytes # 1.1 H Monocytes % 12.9 H Neutrophils # 5.8 Neutrophils % 69.7 Nucleated Red Blood Cells # 0.0 Nucleated Red Blood Cells % 0.0 Platelet Count 253 Potassium Level 3.9 Red Blood Count 3.63 L Red Cell Distribution Width 14.6 H Sodium Level 136 White Blood Count 8.3 Bedside Glucose 193 182 Medications Current Medications Aspirin (Ecotrin) 325 mg BID PO Last administered on 03/12/16 08:33; Admin Dose 325 MG; Start 03/08/16 at 21:00 Pregabalin (Lyrica) 25 mg BID PO Last administered on 03/12/16 08:35; Admin Dose 25 MG; Start 03/08/16 at 21:00 Zolpidem Tartrate (Ambien) 5 mg HS PRN PO INSOMNIA Last administered on 20:27; Admin Dose 5 MG; Start 03/08/16 at 17:00 Ondansetron HCl (Zofran Inj) 4 mg Q6H PRN IV NAUSEA AND/OR VOMITING; Start at 17:00 Lisinopril (Zestril) 20 mg BID PO Last administered on 03/12/16 08:33; Admin Dose 20 MG; Start 03/08/16 at 21:00 Magnesium Hydroxide (Milk Of Mag) 30 ml BID PRN PO CONSTIPATION; Start at 17:00 Metoprolol Succinate (Toprol Xl) 25 mg BID PO Last administered on 03/12/16 08 :34; Admin Dose 25 MG; Start 03/08/16 at 21:00 Miscellaneous Information 1 ea NOTE XX ; Start 03/08/16 at 17:00 Glucose (Glutose) 15 gm Q15M PRN PO DECREASED GLUCOSE; Start 03/08/16 at 17:00 Glucose (Glutose) 22.5 gm Q15M PRN PO DECREASED GLUCOSE; Start 03/08/16 at 17: 00 Dextrose (D50w Syringe) 25 ml Q15M PRN IV DECREASED GLUCOSE; Start 03/08/16 at 17:00 Dextrose (D50w Syringe) 50 ml Q15M PRN IV DECREASED GLUCOSE; Start 03/08/16 at 17:00 Glucagon (Glucagen) 1 mg Q15M PRN IM DECREASED GLUCOSE; Start 03/08/16 at 17:00 Glucose (Glutose) 15 gm Q15M PRN BUCCAL DECREASED GLUCOSE; Start 03/08/16 at 17 :00 Diagnostic Test (Pha) (Accucheck) 1 ea 02 XX Last administered on 03/12/16 02: 12; Admin Dose 1 EA; Start 03/09/16 at 02:00 Acetaminophen/ Hydrocodone Bitart ([place] (5/325)) 1 tab Q6H PRN PO MODERATE PAIN LEVEL 4-6 Last administered on 03/10/16 05:20; Admin Dose 1 TAB; Start at 17:00 Furosemide (Lasix) 40 mg DAILY@06 PO Last administered on 03/12/16 06:53; Admin Dose 40 MG; Start 03/09/16 at 06:00 Famotidine (Pepcid) 20 mg DAILY PO Last administered on 03/12/16 08:33; Admin Dose 20 MG; Start 03/09/16 at 09:00 Escitalopram Oxalate (Lexapro) 10 mg DAILY PO Last administered on 03/12/16 08 :34; Admin Dose 10 MG; Start 03/09/16 at 09:00 Doxazosin Mesylate (Cardura) 2 mg DAILY@21 PO Last administered on 03/11/16 20 :30; Admin Dose 2 MG; Start 03/08/16 at 21:00 Docusate Sodium (Colace) 100 mg BID PO Last administered on 03/12/16 08:34; Admin Dose 100 MG; Start 03/08/16 at 21:00 Docusate Sodium (Colace) 100 mg Q12H PRN PO CONSTIPATION; Start 03/08/16 at 17: 00 Diphenhydramine HCl (Benadryl) 25 mg Q6H PRN PO PRURITUS; Start 03/08/16 at 17: 00 Acetaminophen (Tylenol Tab) 650 mg Q6H PRN PO PAIN LEVEL 1-3 OR FEVER; Start at 17:00 Bisacodyl (Dulcolax Supp) 10 mg Q12H PRN [place] CONSTIPATION; Start 03/08/16 at 17: 00 Cyanocobalamin (Vitamin B12) 100 mcg DAILY PO Last administered on 03/12/16 08 :33; Admin Dose 100 MCG; Start 03/09/16 at 09:00 Senna (Senokot) 1 tab QHS PO Last administered on 03/10/16 20:21; Admin Dose 1 TAB; Start 03/08/16 at 21:00 Bisacodyl (Dulcolax Supp) 10 mg DAILY PRN [place] CONSTIPATION; Start 03/08/16 at 18 :00 Lactulose (Enulose) 20 gm DAILY PRN PO CONSTIPATION; Start 03/08/16 at 18:00 Tramadol HCl (Ultram) 50 mg Q6H PRN PO PAIN LEVEL 6-10 Last administered on 20:22; Admin Dose 50 MG; Start 03/09/16 at 11:30 Insulin Glargine (Lantus) 28 unit QAM SC Last administered on 03/12/16 08:30; Admin Dose 28 UNIT; Start 03/12/16 at 09:00 Assessment/Plan Additional Assessment/Plan Rehab- R IT hip fx-s/p IMR Continue interdisciplinary rehab HTN DM CAD CPOD - h.o prostate CA GUERDA LYNN MD Mar 12, 2016 12:05
[2016-03-12] MEDS: GENTAMICIN 0.3% 5 ML OPH RIGHT EYE SCH ×2 (15:24→20:34)
--- NOTE | 2016-03-12 16:38 | PN ---
Date/Time of Note Date/Time of Note DATE: 03/12/16 TIME: 16:37 Assessment/Plan VTE Prophylaxis VTE Prophylaxis Intervention: other Lines/Catheters Urinary Cath still in place: No Assessment/Plan Chief Complaint/Hosp Course Chief Complaint/Hosp Course 1. Mildly comminuted and displaced right intertrochanteric fracture of the femur. Status post closed reduction and intramedullary rodding on 03/05/2016. Continue pain control. Postoperative care as per orthopedic surgery. Continue physical therapy. 2. Type 2 diabetes mellitus, uncontrolled. Hemoglobin A1c 9.4. Will adjust insulin dosing to obtain optimal blood sugar control. 3. Essential hypertension. Continue antihypertensives. Blood pressure fairly well controlled. 4. History of depression. Continue SSRIs. 5. CAD, status post stenting in the past. Continue aspirin. 6. Acute kidney injury. Etiology unclear. Most probably secondary to hemodynamics versus dehydration. Resolved. 7. History of prostate cancer. S/P surgical resection and radiation. 8. Normocytic, normochromic anemia. Underlying iron deficiency. Continue iron supplements. Transfuse PRBCs as needed. 9. DVT prophylaxis. Aspirin and SCDs. 10. Gastrointestinal prophylaxis with histamine 2 receptor blockers. We will continue monitor patient closely for recommendation management treatment as clinical course Problems: Subjective 24 Hr Interval Summary Free Text/Dictation No acute changes Patient denies any chest pain or shortness of breath Complains of having minimal pain in right hip during ambulation Exam/Review of Systems Vital Signs Vitals Vital Signs Date Time Temp Pulse Resp B/P Pulse Ox O2 Delivery O2 Flow Rate FiO2 03/12/16 07:30 98.4 60 18 179/86 95 03/08/16 15:59 Room Air Intake and Output 03/11/16 03/11/16 03/12/16 14:59 22:59 06:59 Intake Total 620 ml Output Total 1360 ml Balance -740 ml Exam General: The patient is well-developed, Not in acute distress. HEENT: Atraumatic, normocephalic. The pupils are equal and round . Neck: Supple with full range of motion. Chest: Normal expansion of the thorax during inspiration Lungs: Clear to auscultation bilaterally Heart: Normal S1-S2, Regular rhythm and rate. Abdomen: Soft , nontender, nondistended , bowel sounds are present. Extremities: Normal to inspection, no edema no cyanosis, right hip ecchymosis, scant bleed from surgical site Neurologic: Normal mental status,The patient is awake, alert and oriented . Results Result Diagram: 03/12/16 0635 03/12/16 0635 Results 24 hrs Laboratory Tests Test 03/11/16 17:39 03/11/16 20:26 03/12/16 02:06 03/12/16 06:35 Bedside Glucose 184 186 83 Anion Gap 9 Basophils # 0.0 Basophils % 0.3 Blood Morphology Comment Blood Urea Nitrogen 29 H Calcium Level 8.7 Carbon Dioxide Level 32 H Chloride Level 99 Creatinine 1.07 Eosinophils # 0.3 Eosinophils % 3.0 Glucose Level 146 # Hematocrit 34.0 L Hemoglobin 11.4 L Lymphocytes # 1.2 Lymphocytes % 14.1 L Mean Corpuscular Hemoglobin 31.4 Mean Corpuscular Hemoglobin Concent 33.5 Mean Corpuscular Volume 93.7 Mean Platelet Volume 7.9 Monocytes # 1.1 H Monocytes % 12.9 H Neutrophils # 5.8 Neutrophils % 69.7 Nucleated Red Blood Cells # 0.0 Nucleated Red Blood Cells % 0.0 Platelet Count 253 Potassium Level 3.9 Red Blood Count 3.63 L Red Cell Distribution Width 14.6 H Sodium Level 136 White Blood Count 8.3 Test 03/12/16 08:04 03/12/16 11:58 Bedside Glucose 193 182 Medications Medications Current Medications Aspirin (Ecotrin) 325 mg BID PO Last administered on 03/12/16 08:33; Admin Dose 325 MG; Start 03/08/16 at 21:00 Pregabalin (Lyrica) 25 mg BID PO Last administered on 03/12/16 08:35; Admin Dose 25 MG; Start 03/08/16 at 21:00 Zolpidem Tartrate (Ambien) 5 mg HS PRN PO INSOMNIA Last administered on 20:27; Admin Dose 5 MG; Start 03/08/16 at 17:00 Ondansetron HCl (Zofran Inj) 4 mg Q6H PRN IV NAUSEA AND/OR VOMITING; Start at 17:00 Lisinopril (Zestril) 20 mg BID PO Last administered on 03/12/16 08:33; Admin Dose 20 MG; Start 03/08/16 at 21:00 Magnesium Hydroxide (Milk Of Mag) 30 ml BID PRN PO CONSTIPATION; Start at 17:00 Metoprolol Succinate (Toprol Xl) 25 mg BID PO Last administered on 03/12/16 08 :34; Admin Dose 25 MG; Start 03/08/16 at 21:00 Miscellaneous Information 1 ea NOTE XX ; Start 03/08/16 at 17:00 Glucose (Glutose) 15 gm Q15M PRN PO DECREASED GLUCOSE; Start 03/08/16 at 17:00 Glucose (Glutose) 22.5 gm Q15M PRN PO DECREASED GLUCOSE; Start 03/08/16 at 17: 00 Dextrose (D50w Syringe) 25 ml Q15M PRN IV DECREASED GLUCOSE; Start 03/08/16 at 17:00 Dextrose (D50w Syringe) 50 ml Q15M PRN IV DECREASED GLUCOSE; Start 03/08/16 at 17:00 Glucagon (Glucagen) 1 mg Q15M PRN IM DECREASED GLUCOSE; Start 03/08/16 at 17:00 Glucose (Glutose) 15 gm Q15M PRN BUCCAL DECREASED GLUCOSE; Start 03/08/16 at 17 :00 Diagnostic Test (Pha) (Accucheck) 1 ea 02 XX Last administered on 03/12/16 02: 12; Admin Dose 1 EA; Start 03/09/16 at 02:00 Acetaminophen/ Hydrocodone Bitart ([place] (5/325)) 1 tab Q6H PRN PO MODERATE PAIN LEVEL 4-6 Last administered on 03/10/16 05:20; Admin Dose 1 TAB; Start at 17:00 Furosemide (Lasix) 40 mg DAILY@06 PO Last administered on 03/12/16 06:53; Admin Dose 40 MG; Start 03/09/16 at 06:00 Famotidine (Pepcid) 20 mg DAILY PO Last administered on 03/12/16 08:33; Admin Dose 20 MG; Start 03/09/16 at 09:00 Escitalopram Oxalate (Lexapro) 10 mg DAILY PO Last administered on 03/12/16 08 :34; Admin Dose 10 MG; Start 03/09/16 at 09:00 Doxazosin Mesylate (Cardura) 2 mg DAILY@21 PO Last administered on 03/11/16 20 :30; Admin Dose 2 MG; Start 03/08/16 at 21:00 Docusate Sodium (Colace) 100 mg BID PO Last administered on 03/12/16 08:34; Admin Dose 100 MG; Start 03/08/16 at 21:00 Docusate Sodium (Colace) 100 mg Q12H PRN PO CONSTIPATION; Start 03/08/16 at 17: 00 Diphenhydramine HCl (Benadryl) 25 mg Q6H PRN PO PRURITUS; Start 03/08/16 at 17: 00 Acetaminophen (Tylenol Tab) 650 mg Q6H PRN PO PAIN LEVEL 1-3 OR FEVER; Start at 17:00 Bisacodyl (Dulcolax Supp) 10 mg Q12H PRN [place] CONSTIPATION; Start 03/08/16 at 17: 00 Cyanocobalamin (Vitamin B12) 100 mcg DAILY PO Last administered on 03/12/16 08 :33; Admin Dose 100 MCG; Start 03/09/16 at 09:00 Senna (Senokot) 1 tab QHS PO Last administered on 03/10/16 20:21; Admin Dose 1 TAB; Start 03/08/16 at 21:00 Bisacodyl (Dulcolax Supp) 10 mg DAILY PRN [place] CONSTIPATION; Start 03/08/16 at 18 :00 Lactulose (Enulose) 20 gm DAILY PRN PO CONSTIPATION; Start 03/08/16 at 18:00 Tramadol HCl (Ultram) 50 mg Q6H PRN PO PAIN LEVEL 6-10 Last administered on 20:22; Admin Dose 50 MG; Start 03/09/16 at 11:30 Insulin Glargine (Lantus) 30 unit QAM SC ; Start 03/13/16 at 09:00 Gentamicin Sulfate (Gentamicin 0.3% Oph Drop) 1 drop BID RIGHT EYE Last administered on 03/12/16 15:24; Admin Dose 1 DROP; Start 03/12/16 at 15:00; Stop 03/16/16 at 21:01 SIM GALEANO MD Mar 12, 2016 16:38
[2016-03-12 20:00] VITALS: BP 114/53; PULSE 69; RESP 18
[2016-03-12] MEDS: DOXAZOSIN 2 MG TAB PO SCH (20:33)
[2016-03-12] MEDS: SENNA TAB PO SCH (20:33)
[2016-03-12] MEDS: ZOLPIDEM 5 MG TAB PO PRN (21:14)
[2016-03-13] MEDS: HYDROCODONE/APAP (5/325) TAB PO PRN (01:19)
[2016-03-13] MEDS: ACCUCHECK AT 2AM (Patients on SS coverage) XX SCH (01:21)
[2016-03-13] MEDS: FUROSEMIDE 40 MG TAB PO SCH (06:46)
[2016-03-13] MEDS: Insulin NOVOLOG SS MILD Algorithm (SS with meals and bedtime) SC SCH ×4 (07:05→20:29)
[2016-03-13 08:00] VITALS: BP 172/81; PULSE 58; RESP 21
[2016-03-13] MEDS: metFORMIN 500 MG TAB PO SCH ×2 (08:09→17:58)
[2016-03-13] MEDS: INSULIN ASPART [NOVOLOG] 3 ML PEN SC SCH ×3 (08:11→17:35)
[2016-03-13] MEDS ORDERED: INSULIN GLARGINE [LANtus] 3 ML PEN SC SCH (09:00)
[2016-03-13] MEDS: CYANOCOBALAMIN 100 MCG TAB PO SCH (09:34)
[2016-03-13] MEDS: GENTAMICIN 0.3% 5 ML OPH RIGHT EYE SCH ×2 (09:35→20:21)
[2016-03-13] MEDS: LISINOPRIL 20 MG TAB PO SCH ×2 (09:35→20:20)
[2016-03-13] MEDS: DOCUSATE SODIUM 100 MG CAP PO SCH ×2 (09:35→21:00)
[2016-03-13] MEDS: FAMOTIDINE 20 MG TAB PO SCH (09:35)
[2016-03-13] MEDS: ASPIRIN (EC) 325 MG TAB PO SCH ×2 (09:35→20:19)
[2016-03-13] MEDS: ESCITALOPRAM 10 MG TAB PO SCH (09:35)
[2016-03-13] MEDS: PREGABALIN 25 MG CAP PO SCH ×2 (09:35→20:19)
[2016-03-13] MEDS: METOPROLOL (XL) 25 MG TAB PO SCH ×2 (09:36→20:21)
--- NOTE | 2016-03-13 11:21 | CONS ---
Date/Time of Note Date/Time of Note DATE: 03/13/16 TIME: 11:20 Consult Date/Type/Reason Admit Date/Time Mar 08, 2016 at 15:40 Subjective Feeling better Objective Vital Signs Date Time Temp Pulse Resp B/P Pulse Ox O2 Delivery O2 Flow Rate FiO2 03/12/16 20:00 98.6 69 18 114/53 96 Room Air Intake and Output 03/12/16 03/12/16 03/13/16 14:59 22:59 06:59 Intake Total 1720 ml 240 ml 480 ml Output Total 1150 ml 150 ml 1650 ml Balance 570 ml 90 ml -1170 ml pulm- cta min assist ambulation Results/Medications Result Diagram: 03/12/16 0635 03/12/16 0635 Results 24 hrs Laboratory Tests Test 03/12/16 11:58 03/12/16 17:05 03/12/16 20:24 03/12/16 20:26 Bedside Glucose 182 81 65 L 66 L Test 03/12/16 21:04 03/13/16 07:16 Bedside Glucose 93 132 Medications Current Medications Aspirin (Ecotrin) 325 mg BID PO Last administered on 03/13/16 09:35; Admin Dose 325 MG; Start 03/08/16 at 21:00 Pregabalin (Lyrica) 25 mg BID PO Last administered on 03/13/16 09:35; Admin Dose 25 MG; Start 03/08/16 at 21:00 Zolpidem Tartrate (Ambien) 5 mg HS PRN PO INSOMNIA Last administered on 21:14; Admin Dose 5 MG; Start 03/08/16 at 17:00 Ondansetron HCl (Zofran Inj) 4 mg Q6H PRN IV NAUSEA AND/OR VOMITING; Start at 17:00 Lisinopril (Zestril) 20 mg BID PO Last administered on 03/13/16 09:35; Admin Dose 20 MG; Start 03/08/16 at 21:00 Magnesium Hydroxide (Milk Of Mag) 30 ml BID PRN PO CONSTIPATION; Start at 17:00 Metoprolol Succinate (Toprol Xl) 25 mg BID PO Last administered on 03/13/16 09: 36; Admin Dose 25 MG; Start 03/08/16 at 21:00 Miscellaneous Information 1 ea NOTE XX ; Start 03/08/16 at 17:00 Glucose (Glutose) 15 gm Q15M PRN PO DECREASED GLUCOSE; Start 03/08/16 at 17:00 Glucose (Glutose) 22.5 gm Q15M PRN PO DECREASED GLUCOSE; Start 03/08/16 at 17: 00 Dextrose (D50w Syringe) 25 ml Q15M PRN IV DECREASED GLUCOSE; Start 03/08/16 at 17:00 Dextrose (D50w Syringe) 50 ml Q15M PRN IV DECREASED GLUCOSE; Start 03/08/16 at 17:00 Glucagon (Glucagen) 1 mg Q15M PRN IM DECREASED GLUCOSE; Start 03/08/16 at 17:00 Glucose (Glutose) 15 gm Q15M PRN BUCCAL DECREASED GLUCOSE; Start 03/08/16 at 17 :00 Diagnostic Test (Pha) (Accucheck) 1 ea 02 XX Last administered on 03/12/16 02: 12; Admin Dose 1 EA; Start 03/09/16 at 02:00 Acetaminophen/ Hydrocodone Bitart ([place] (5/325)) 1 tab Q6H PRN PO MODERATE PAIN LEVEL 4-6 Last administered on 03/13/16 01:19; Admin Dose 1 TAB; Start at 17:00 Furosemide (Lasix) 40 mg DAILY@06 PO Last administered on 03/13/16 06:46; Admin Dose 40 MG; Start 03/09/16 at 06:00 Famotidine (Pepcid) 20 mg DAILY PO Last administered on 03/13/16 09:35; Admin Dose 20 MG; Start 03/09/16 at 09:00 Escitalopram Oxalate (Lexapro) 10 mg DAILY PO Last administered on 03/13/16 09: 35; Admin Dose 10 MG; Start 03/09/16 at 09:00 Doxazosin Mesylate (Cardura) 2 mg DAILY@21 PO Last administered on 03/12/16 20 :33; Admin Dose 2 MG; Start 03/08/16 at 21:00 Docusate Sodium (Colace) 100 mg BID PO Last administered on 03/13/16 09:35; Admin Dose 100 MG; Start 03/08/16 at 21:00 Docusate Sodium (Colace) 100 mg Q12H PRN PO CONSTIPATION; Start 03/08/16 at 17: 00 Diphenhydramine HCl (Benadryl) 25 mg Q6H PRN PO PRURITUS; Start 03/08/16 at 17: 00 Acetaminophen (Tylenol Tab) 650 mg Q6H PRN PO PAIN LEVEL 1-3 OR FEVER; Start at 17:00 Bisacodyl (Dulcolax Supp) 10 mg Q12H PRN [place] CONSTIPATION; Start 03/08/16 at 17: 00 Cyanocobalamin (Vitamin B12) 100 mcg DAILY PO Last administered on 03/13/16 09: 34; Admin Dose 100 MCG; Start 03/09/16 at 09:00 Senna (Senokot) 1 tab QHS PO Last administered on 03/12/16 20:33; Admin Dose 1 TAB; Start 03/08/16 at 21:00 Bisacodyl (Dulcolax Supp) 10 mg DAILY PRN [place] CONSTIPATION; Start 03/08/16 at 18 :00 Lactulose (Enulose) 20 gm DAILY PRN PO CONSTIPATION; Start 03/08/16 at 18:00 Tramadol HCl (Ultram) 50 mg Q6H PRN PO PAIN LEVEL 6-10 Last administered on 20:22; Admin Dose 50 MG; Start 03/09/16 at 11:30 Insulin Glargine (Lantus) 30 unit QAM SC Last administered on 03/13/16 09:41; Admin Dose 30 UNIT; Start 03/13/16 at 09:00 Gentamicin Sulfate (Gentamicin 0.3% Oph Drop) 1 drop BID RIGHT EYE Last administered on 03/13/16 09:35; Admin Dose 1 DROP; Start 03/12/16 at 15:00; Stop 03/16/16 at 21:01 Assessment/Plan Additional Assessment/Plan Rehab- R IT hip fx-s/p IMR Continue interdisciplinary rehab. Working towards mi Friday HTN DM CAD CPOD - h.o prostate CA GUERDA LYNN MD Mar 13, 2016 11:21
--- NOTE | 2016-03-13 16:08 | PN ---
Date/Time of Note Date/Time of Note DATE: 03/13/16 TIME: 16:06 Assessment/Plan VTE Prophylaxis VTE Prophylaxis Intervention: other Lines/Catheters Urinary Cath still in place: No Assessment/Plan Chief Complaint/Hosp Course Chief Complaint/Hosp Course 1. Mildly comminuted and displaced right intertrochanteric fracture of the femur. Status post closed reduction and intramedullary rodding on 03/05/2016. Continue pain control. Postoperative care as per orthopedic surgery. Continue physical therapy. 2. Type 2 diabetes mellitus, uncontrolled. Hemoglobin A1c 9.4. With episodes of hypoglycemia today, decrease Lantus and pre-meals insulin, continue insulin sliding scale 3. Essential hypertension. Continue antihypertensives. Blood pressure fairly well controlled. 4. History of depression. Continue SSRIs. 5. CAD, status post stenting in the past. Continue aspirin. 6. Acute kidney injury. Etiology unclear. Most probably secondary to hemodynamics versus dehydration. Resolved. 7. History of prostate cancer. S/P surgical resection and radiation. 8. Normocytic, normochromic anemia. Underlying iron deficiency. Continue iron supplements. Transfuse PRBCs as needed. 9. DVT prophylaxis. Aspirin and SCDs. 10. Gastrointestinal prophylaxis with histamine 2 receptor blockers. We will continue monitor patient closely for recommendation management treatment as clinical course Problems: Subjective 24 Hr Interval Summary Free Text/Dictation Patient denies of any chest pain or shortness of breath Denies of any headache or dizziness Tolerating oral intake Exam/Review of Systems Vital Signs Vitals Vital Signs Date Time Temp Pulse Resp B/P Pulse Ox O2 Delivery O2 Flow Rate FiO2 03/13/16 08:00 98.2 58 21 172/81 96 Room Air Intake and Output 03/12/16 03/12/16 03/13/16 15:00 23:00 07:00 Intake Total 1720 ml 240 ml 480 ml Output Total 1150 ml 150 ml 1650 ml Balance 570 ml 90 ml -1170 ml Exam General: The patient is well-developed, Not in acute distress. HEENT: Atraumatic, normocephalic. The pupils are equal and round . Neck: Supple with full range of motion. Chest: Normal expansion of the thorax during inspiration Lungs: Clear to auscultation bilaterally Heart: Normal S1-S2, Regular rhythm and rate. Abdomen: Soft , nontender, nondistended , bowel sounds are present. Extremities: Right hip ecchymosis without any evidence of bleeding, no edema no cyanosis Neurologic: Normal mental status,The patient is awake, alert and oriented . Results Result Diagram: 03/12/16 0635 03/12/16 0635 Results 24 hrs Laboratory Tests Test 03/12/16 17:05 03/12/16 20:24 03/12/16 20:26 03/12/16 21:04 Bedside Glucose 81 65 L 66 L 93 Test 03/13/16 07:16 03/13/16 12:00 03/13/16 14:37 03/13/16 14:54 Bedside Glucose 132 152 46 *L 65 L Test 03/13/16 15:17 03/13/16 15:40 Bedside Glucose 89 92 Medications Medications Current Medications Aspirin (Ecotrin) 325 mg BID PO Last administered on 03/13/16 09:35; Admin Dose 325 MG; Start 03/08/16 at 21:00 Pregabalin (Lyrica) 25 mg BID PO Last administered on 03/13/16 09:35; Admin Dose 25 MG; Start 03/08/16 at 21:00 Zolpidem Tartrate (Ambien) 5 mg HS PRN PO INSOMNIA Last administered on 21:14; Admin Dose 5 MG; Start 03/08/16 at 17:00 Ondansetron HCl (Zofran Inj) 4 mg Q6H PRN IV NAUSEA AND/OR VOMITING; Start at 17:00 Lisinopril (Zestril) 20 mg BID PO Last administered on 03/13/16 09:35; Admin Dose 20 MG; Start 03/08/16 at 21:00 Magnesium Hydroxide (Milk Of Mag) 30 ml BID PRN PO CONSTIPATION; Start at 17:00 Metoprolol Succinate (Toprol Xl) 25 mg BID PO Last administered on 03/13/16 09: 36; Admin Dose 25 MG; Start 03/08/16 at 21:00 Miscellaneous Information 1 ea NOTE XX ; Start 03/08/16 at 17:00 Glucose (Glutose) 15 gm Q15M PRN PO DECREASED GLUCOSE; Start 03/08/16 at 17:00 Glucose (Glutose) 22.5 gm Q15M PRN PO DECREASED GLUCOSE; Start 03/08/16 at 17: 00 Dextrose (D50w Syringe) 25 ml Q15M PRN IV DECREASED GLUCOSE; Start 03/08/16 at 17:00 Dextrose (D50w Syringe) 50 ml Q15M PRN IV DECREASED GLUCOSE; Start 03/08/16 at 17:00 Glucagon (Glucagen) 1 mg Q15M PRN IM DECREASED GLUCOSE; Start 03/08/16 at 17:00 Glucose (Glutose) 15 gm Q15M PRN BUCCAL DECREASED GLUCOSE; Start 03/08/16 at 17 :00 Diagnostic Test (Pha) (Accucheck) 1 ea 02 XX Last administered on 03/12/16 02: 12; Admin Dose 1 EA; Start 03/09/16 at 02:00 Acetaminophen/ Hydrocodone Bitart ([place] (5/325)) 1 tab Q6H PRN PO MODERATE PAIN LEVEL 4-6 Last administered on 03/13/16 01:19; Admin Dose 1 TAB; Start at 17:00 Furosemide (Lasix) 40 mg DAILY@06 PO Last administered on 03/13/16 06:46; Admin Dose 40 MG; Start 03/09/16 at 06:00 Famotidine (Pepcid) 20 mg DAILY PO Last administered on 03/13/16 09:35; Admin Dose 20 MG; Start 03/09/16 at 09:00 Escitalopram Oxalate (Lexapro) 10 mg DAILY PO Last administered on 03/13/16 09: 35; Admin Dose 10 MG; Start 03/09/16 at 09:00 Doxazosin Mesylate (Cardura) 2 mg DAILY@21 PO Last administered on 03/12/16 20 :33; Admin Dose 2 MG; Start 03/08/16 at 21:00 Docusate Sodium (Colace) 100 mg BID PO Last administered on 03/13/16 09:35; Admin Dose 100 MG; Start 03/08/16 at 21:00 Diphenhydramine HCl (Benadryl) 25 mg Q6H PRN PO PRURITUS; Start 03/08/16 at 17: 00 Acetaminophen (Tylenol Tab) 650 mg Q6H PRN PO PAIN LEVEL 1-3 OR FEVER; Start at 17:00 Cyanocobalamin (Vitamin B12) 100 mcg DAILY PO Last administered on 03/13/16 09: 34; Admin Dose 100 MCG; Start 03/09/16 at 09:00 Senna (Senokot) 1 tab QHS PO Last administered on 03/12/16 20:33; Admin Dose 1 TAB; Start 03/08/16 at 21:00 Bisacodyl (Dulcolax Supp) 10 mg DAILY PRN [place] CONSTIPATION; Start 03/08/16 at 18 :00 Lactulose (Enulose) 20 gm DAILY PRN PO CONSTIPATION; Start 03/08/16 at 18:00 Tramadol HCl (Ultram) 50 mg Q6H PRN PO PAIN LEVEL 6-10 Last administered on 20:22; Admin Dose 50 MG; Start 03/09/16 at 11:30 Gentamicin Sulfate (Gentamicin 0.3% Oph Drop) 1 drop BID RIGHT EYE Last administered on 03/13/16 09:35; Admin Dose 1 DROP; Start 03/12/16 at 15:00; Stop 03/16/16 at 21:01 Insulin Glargine (Lantus) 28 unit QAM SC ; Start 03/14/16 at 09:00; Status SIM MUJICA MD Mar 13, 2016 16:08
[2016-03-13 20:00] VITALS: BP 165/74; RESP 18
[2016-03-13] MEDS: ZOLPIDEM 5 MG TAB PO PRN ×2 (20:19→21:22)
[2016-03-13] MEDS: DOXAZOSIN 2 MG TAB PO SCH (20:21)
[2016-03-13] MEDS: SENNA TAB PO SCH (21:00)
[2016-03-13 22:00] VITALS: BP 153/79; PULSE 60
[2016-03-14] MEDS: ACCUCHECK AT 2AM (Patients on SS coverage) XX SCH (02:13)
[2016-03-14] MEDS: HYDROCODONE/APAP (5/325) TAB PO PRN (04:45)
[2016-03-14 05:00] VITALS: BP 164/84; PULSE 60
[2016-03-14] MEDS: FUROSEMIDE 40 MG TAB PO SCH (05:07)
[2016-03-14] MEDS: metFORMIN 500 MG TAB PO SCH ×2 (08:01→17:17)
[2016-03-14 08:05] VITALS: BP 154/73; RESP 20
[2016-03-14] MEDS: INSULIN ASPART [NOVOLOG] 3 ML PEN SC SCH ×3 (08:06→17:35)
[2016-03-14] MEDS: Insulin NOVOLOG SS MILD Algorithm (SS with meals and bedtime) SC SCH ×4 (08:07→21:00)
[2016-03-14] MEDS: DOCUSATE SODIUM 100 MG CAP PO SCH ×2 (08:40→21:00)
[2016-03-14] MEDS: CYANOCOBALAMIN 100 MCG TAB PO SCH (08:42)
[2016-03-14] MEDS: GENTAMICIN 0.3% 5 ML OPH RIGHT EYE SCH ×2 (08:42→21:19)
[2016-03-14] MEDS: ESCITALOPRAM 10 MG TAB PO SCH (08:42)
[2016-03-14] MEDS: PREGABALIN 25 MG CAP PO SCH ×2 (08:42→21:17)
[2016-03-14] MEDS: FAMOTIDINE 20 MG TAB PO SCH (08:42)
[2016-03-14] MEDS: ASPIRIN (EC) 325 MG TAB PO SCH ×2 (08:42→21:17)
[2016-03-14] MEDS: LISINOPRIL 20 MG TAB PO SCH ×2 (08:43→21:17)
[2016-03-14] MEDS: METOPROLOL (XL) 25 MG TAB PO SCH ×2 (08:44→21:17)
[2016-03-14] MEDS ORDERED: INSULIN GLARGINE [LANtus] 3 ML PEN SC SCH (09:00)
--- NOTE | 2016-03-14 09:46 | PN ---
DATE: 03/14/2016 CARDIOLOGY FOLLOWUP PROGRESS NOTE SUBJECTIVE: No new cardiac event. No chest pain or pressure, no palpitations. Does complain of sw elling and pain in the right leg. MEDICATIONS: Reviewed. PHYSICAL EXAMINATION: VITAL SIGNS: Temperature 98.1, heart rate of 60, blood pressure 164/84, respiratory rate of 18. HEENT: Normocephalic, atraumatic. Pupils equal and round. CARDIOVASCULAR: Regular rate and rhythm, systolic murmur. PULMONARY: No wheezes. GASTROINTESTINAL: Soft, nontender. EXTREMITIES: With lower extremity edema. ecchymosis and bruises in the right lower extremity . NEUROLOGIC: Awake, alert, nonfocal. PSYCHIATRIC: Appears to be calm. LABORATORY: Glucose 195. ASSESSMENT AND PLAN: 1. Coronary artery disease, history of myocardial infarction, status post percutaneous coronary int ervention. 2. History of congestive heart failure secondary to diastolic dysfunction. 3. Hip fracture status post surgery. 4. History of prostate carcinoma. 5. Hypertension. RECOMMENDATIONS: We will continue with the current cardiac care. Continue with physical therapy an d rehabilitation. The patient is already on aspirin. Has not tolerated statins and PCSK9 inhibitor will be continued as an outpatient. Dictated By: LORETTA MENDOZA MD AV/VICENTA Conf#: [id number] DID#: [id number] CC: DANIEL URIAS MD;*EndCC*
--- NOTE | 2016-03-14 11:59 | CONS ---
Date/Time of Note Date/Time of Note DATE: 03/14/16 TIME: 11:58 Consult Date/Type/Reason Admit Date/Time Mar 08, 2016 at 15:40 Subjective Overall improving Objective pulm- cta min assist ambulation Vital Signs Date Time Temp Pulse Resp B/P Pulse Ox O2 Delivery O2 Flow Rate FiO2 03/14/16 08:05 98.1 61 20 154/73 97 03/13/16 08:00 Room Air Intake and Output 03/13/16 03/13/16 03/14/16 15:00 23:00 07:00 Intake Total 500 ml 400 ml Output Total 1200 ml 600 ml Balance -700 ml -200 ml Results/Medications Result Diagram: 03/12/16 0635 03/12/16 0635 Results 24 hrs Laboratory Tests Test 03/13/16 12:00 03/13/16 14:37 03/13/16 14:54 03/13/16 15:17 Bedside Glucose 152 46 *L 65 L 89 Test 03/13/16 15:40 03/13/16 17:04 03/13/16 20:18 03/14/16 01:40 Bedside Glucose 92 94 240 H 228 H Test 03/14/16 07:23 Bedside Glucose 195 Medications Current Medications Aspirin (Ecotrin) 325 mg BID PO Last administered on 03/14/16 08:42; Admin Dose 325 MG; Start 03/08/16 at 21:00 Pregabalin (Lyrica) 25 mg BID PO Last administered on 03/14/16 08:42; Admin Dose 25 MG; Start 03/08/16 at 21:00 Zolpidem Tartrate (Ambien) 5 mg HS PRN PO INSOMNIA Last administered on 21:22; Admin Dose 5 MG; Start 03/08/16 at 17:00 Ondansetron HCl (Zofran Inj) 4 mg Q6H PRN IV NAUSEA AND/OR VOMITING; Start at 17:00 Lisinopril (Zestril) 20 mg BID PO Last administered on 03/14/16 08:43; Admin Dose 20 MG; Start 03/08/16 at 21:00 Magnesium Hydroxide (Milk Of Mag) 30 ml BID PRN PO CONSTIPATION; Start at 17:00 Metoprolol Succinate (Toprol Xl) 25 mg BID PO Last administered on 03/14/16 08: 44; Admin Dose 25 MG; Start 03/08/16 at 21:00 Miscellaneous Information 1 ea NOTE XX ; Start 03/08/16 at 17:00 Glucose (Glutose) 15 gm Q15M PRN PO DECREASED GLUCOSE; Start 03/08/16 at 17:00 Glucose (Glutose) 22.5 gm Q15M PRN PO DECREASED GLUCOSE; Start 03/08/16 at 17: 00 Dextrose (D50w Syringe) 25 ml Q15M PRN IV DECREASED GLUCOSE; Start 03/08/16 at 17:00 Dextrose (D50w Syringe) 50 ml Q15M PRN IV DECREASED GLUCOSE; Start 03/08/16 at 17:00 Glucagon (Glucagen) 1 mg Q15M PRN IM DECREASED GLUCOSE; Start 03/08/16 at 17:00 Glucose (Glutose) 15 gm Q15M PRN BUCCAL DECREASED GLUCOSE; Start 03/08/16 at 17 :00 Diagnostic Test (Pha) (Accucheck) 1 ea 02 XX Last administered on 03/14/16 02: 13; Admin Dose 1 EA; Start 03/09/16 at 02:00 Acetaminophen/ Hydrocodone Bitart ([place] (5/325)) 1 tab Q6H PRN PO MODERATE PAIN LEVEL 4-6 Last administered on 03/14/16 04:45; Admin Dose 1 TAB; Start at 17:00 Furosemide (Lasix) 40 mg DAILY@06 PO Last administered on 03/14/16 05:07; Admin Dose 40 MG; Start 03/09/16 at 06:00 Famotidine (Pepcid) 20 mg DAILY PO Last administered on 03/14/16 08:42; Admin Dose 20 MG; Start 03/09/16 at 09:00 Escitalopram Oxalate (Lexapro) 10 mg DAILY PO Last administered on 03/14/16 08: 42; Admin Dose 10 MG; Start 03/09/16 at 09:00 Doxazosin Mesylate (Cardura) 2 mg DAILY@21 PO Last administered on 03/13/16 20: 21; Admin Dose 2 MG; Start 03/08/16 at 21:00 Docusate Sodium (Colace) 100 mg BID PO Last administered on 03/13/16 09:35; Admin Dose 100 MG; Start 03/08/16 at 21:00 Diphenhydramine HCl (Benadryl) 25 mg Q6H PRN PO PRURITUS; Start 03/08/16 at 17: 00 Acetaminophen (Tylenol Tab) 650 mg Q6H PRN PO PAIN LEVEL 1-3 OR FEVER; Start at 17:00 Cyanocobalamin (Vitamin B12) 100 mcg DAILY PO Last administered on 03/14/16 08: 42; Admin Dose 100 MCG; Start 03/09/16 at 09:00 Senna (Senokot) 1 tab QHS PO Last administered on 03/12/16 20:33; Admin Dose 1 TAB; Start 03/08/16 at 21:00 Bisacodyl (Dulcolax Supp) 10 mg DAILY PRN [place] CONSTIPATION; Start 03/08/16 at 18 :00 Lactulose (Enulose) 20 gm DAILY PRN PO CONSTIPATION; Start 03/08/16 at 18:00 Tramadol HCl (Ultram) 50 mg Q6H PRN PO PAIN LEVEL 6-10 Last administered on 20:22; Admin Dose 50 MG; Start 03/09/16 at 11:30 Gentamicin Sulfate (Gentamicin 0.3% Oph Drop) 1 drop BID RIGHT EYE Last administered on 03/14/16 08:42; Admin Dose 1 DROP; Start 03/12/16 at 15:00; Stop 03/16/16 at 21:01 Insulin Glargine (Lantus) 28 unit QAM SC Last administered on 03/14/16 08:47; Admin Dose 28 UNIT; Start 03/14/16 at 09:00 Assessment/Plan Additional Assessment/Plan Rehab- R IT hip fx-s/p IMR Continued progress with rehab program. HTN DM CAD CPOD - h.o prostate CA GUERDA LYNN MD Mar 14, 2016 11:59
--- NOTE | 2016-03-14 14:51 | PN ---
Date/Time of Note Date/Time of Note DATE: 03/14/16 TIME: 14:50 Assessment/Plan VTE Prophylaxis VTE Prophylaxis Intervention: other Lines/Catheters Urinary Cath still in place: No Assessment/Plan Chief Complaint/Hosp Course Chief Complaint/Hosp Course 1. Mildly comminuted and displaced right intertrochanteric fracture of the femur. Status post closed reduction and intramedullary rodding on 03/05/2016. Continue pain control. Postoperative care as per orthopedic surgery. Continue physical therapy. 2. Type 2 diabetes mellitus, uncontrolled. Hemoglobin A1c 9.4. Better controlled, continue Lantus and pre-meals insulin, continue insulin sliding scale 3. Essential hypertension. Continue antihypertensives. Blood pressure fairly well controlled. 4. History of depression. Continue SSRIs. 5. CAD, status post stenting in the past. Continue aspirin. 6. Acute kidney injury. Etiology unclear. Most probably secondary to hemodynamics versus dehydration. Resolved. 7. History of prostate cancer. S/P surgical resection and radiation. 8. Normocytic, normochromic anemia. Underlying iron deficiency. Continue iron supplements. Transfuse PRBCs as needed. 9. DVT prophylaxis. Aspirin and SCDs. 10. Gastrointestinal prophylaxis with histamine 2 receptor blockers. We will continue monitor patient closely for recommendation management treatment as clinical course Problems: Subjective 24 Hr Interval Summary Free Text/Dictation Patient denies any chest pain or shortness of breath Denies any abdominal pain Minimal right hip pain during ambulation Exam/Review of Systems Vital Signs Vitals Vital Signs Date Time Temp Pulse Resp B/P Pulse Ox O2 Delivery O2 Flow Rate FiO2 03/14/16 08:05 98.1 61 20 154/73 97 03/13/16 08:00 Room Air Intake and Output 03/13/16 03/13/16 03/14/16 15:00 23:00 07:00 Intake Total 500 ml 400 ml Output Total 1200 ml 600 ml Balance -700 ml -200 ml Exam General: The patient is well-developed, Not in acute distress. HEENT: Atraumatic, normocephalic. The pupils are equal and round . Neck: Supple with full range of motion. Chest: Normal expansion of the thorax during inspiration Lungs: Clear to auscultation bilaterally Heart: Normal S1-S2, Regular rhythm and rate. Abdomen: Soft , nontender, nondistended , bowel sounds are present. Extremities: Ecchymosis in right hip area at the surgical site, no edema no cyanosis Neurologic: Normal mental status,The patient is awake, alert and oriented . Results Result Diagram: 03/12/16 0635 03/12/16 0635 Results 24 hrs Laboratory Tests Test 03/13/16 14:54 03/13/16 15:17 03/13/16 15:40 03/13/16 17:04 Bedside Glucose 65 L 89 92 94 Test 03/13/16 20:18 03/14/16 01:40 03/14/16 07:23 03/14/16 11:53 Bedside Glucose 240 H 228 H 195 52 L Test 03/14/16 12:27 03/14/16 13:00 Bedside Glucose 77 106 Medications Medications Current Medications Aspirin (Ecotrin) 325 mg BID PO Last administered on 03/14/16 08:42; Admin Dose 325 MG; Start 03/08/16 at 21:00 Pregabalin (Lyrica) 25 mg BID PO Last administered on 03/14/16 08:42; Admin Dose 25 MG; Start 03/08/16 at 21:00 Zolpidem Tartrate (Ambien) 5 mg HS PRN PO INSOMNIA Last administered on 21:22; Admin Dose 5 MG; Start 03/08/16 at 17:00 Ondansetron HCl (Zofran Inj) 4 mg Q6H PRN IV NAUSEA AND/OR VOMITING; Start at 17:00 Lisinopril (Zestril) 20 mg BID PO Last administered on 03/14/16 08:43; Admin Dose 20 MG; Start 03/08/16 at 21:00 Magnesium Hydroxide (Milk Of Mag) 30 ml BID PRN PO CONSTIPATION; Start at 17:00 Metoprolol Succinate (Toprol Xl) 25 mg BID PO Last administered on 03/14/16 08: 44; Admin Dose 25 MG; Start 03/08/16 at 21:00 Miscellaneous Information 1 ea NOTE XX ; Start 03/08/16 at 17:00 Glucose (Glutose) 15 gm Q15M PRN PO DECREASED GLUCOSE; Start 03/08/16 at 17:00 Glucose (Glutose) 22.5 gm Q15M PRN PO DECREASED GLUCOSE; Start 03/08/16 at 17: 00 Dextrose (D50w Syringe) 25 ml Q15M PRN IV DECREASED GLUCOSE; Start 03/08/16 at 17:00 Dextrose (D50w Syringe) 50 ml Q15M PRN IV DECREASED GLUCOSE; Start 03/08/16 at 17:00 Glucagon (Glucagen) 1 mg Q15M PRN IM DECREASED GLUCOSE; Start 03/08/16 at 17:00 Glucose (Glutose) 15 gm Q15M PRN BUCCAL DECREASED GLUCOSE; Start 03/08/16 at 17 :00 Diagnostic Test (Pha) (Accucheck) 1 ea 02 XX Last administered on 03/14/16 02: 13; Admin Dose 1 EA; Start 03/09/16 at 02:00 Acetaminophen/ Hydrocodone Bitart ([place] (5/325)) 1 tab Q6H PRN PO MODERATE PAIN LEVEL 4-6 Last administered on 03/14/16 04:45; Admin Dose 1 TAB; Start at 17:00 Furosemide (Lasix) 40 mg DAILY@06 PO Last administered on 03/14/16 05:07; Admin Dose 40 MG; Start 03/09/16 at 06:00 Famotidine (Pepcid) 20 mg DAILY PO Last administered on 03/14/16 08:42; Admin Dose 20 MG; Start 03/09/16 at 09:00 Escitalopram Oxalate (Lexapro) 10 mg DAILY PO Last administered on 03/14/16 08: 42; Admin Dose 10 MG; Start 03/09/16 at 09:00 Doxazosin Mesylate (Cardura) 2 mg DAILY@21 PO Last administered on 03/13/16 20: 21; Admin Dose 2 MG; Start 03/08/16 at 21:00 Docusate Sodium (Colace) 100 mg BID PO Last administered on 03/13/16 09:35; Admin Dose 100 MG; Start 03/08/16 at 21:00 Diphenhydramine HCl (Benadryl) 25 mg Q6H PRN PO PRURITUS; Start 03/08/16 at 17: 00 Acetaminophen (Tylenol Tab) 650 mg Q6H PRN PO PAIN LEVEL 1-3 OR FEVER; Start at 17:00 Cyanocobalamin (Vitamin B12) 100 mcg DAILY PO Last administered on 03/14/16 08: 42; Admin Dose 100 MCG; Start 03/09/16 at 09:00 Senna (Senokot) 1 tab QHS PO Last administered on 03/12/16 20:33; Admin Dose 1 TAB; Start 03/08/16 at 21:00 Bisacodyl (Dulcolax Supp) 10 mg DAILY PRN [place] CONSTIPATION; Start 03/08/16 at 18 :00 Lactulose (Enulose) 20 gm DAILY PRN PO CONSTIPATION; Start 03/08/16 at 18:00 Tramadol HCl (Ultram) 50 mg Q6H PRN PO PAIN LEVEL 6-10 Last administered on 20:22; Admin Dose 50 MG; Start 03/09/16 at 11:30 Gentamicin Sulfate (Gentamicin 0.3% Oph Drop) 1 drop BID RIGHT EYE Last administered on 03/14/16 08:42; Admin Dose 1 DROP; Start 03/12/16 at 15:00; Stop 03/16/16 at 21:01 Insulin Glargine (Lantus) 28 unit QAM SC Last administered on 03/14/16 08:47; Admin Dose 28 UNIT; Start 03/14/16 at 09:00 SIM GALEANO MD Mar 14, 2016 14:51
--- NOTE | 2016-03-14 17:41 | PN ---
Date/Time of Note Date/Time of Note DATE: 03/14/16 TIME: 17:39 Assessment/Plan Lines/Catheters Ch in Place (from Nrs): No Assessment/Plan Assessment/Plan s/p closed reduction, IM rodding, right IT fracture -OOB with PT in ARU -pain meds -new Prevena wound vac applied toay -cont ASA for DVT prophylaxis for now. Will plan to switch back to plavix next week -d/c planning. Will re-evaluate early next week to discuss discharge home Subjective 24 Hr Interval Summary Doing well. Progressing nicely with physical therapy. Pain, swelling, and ecchymosis improving. Denies f/c. Exam/Review of Systems Vital Signs Vitals Vital Signs Date Time Temp Pulse Resp B/P Pulse Ox O2 Delivery O2 Flow Rate FiO2 03/14/16 08:05 98.1 61 20 154/73 97 03/13/16 08:00 Room Air Intake and Output 03/13/16 03/13/16 03/14/16 15:00 23:00 07:00 Intake Total 500 ml 400 ml Output Total 1200 ml 600 ml Balance -700 ml -200 ml Exam Free Text/Dictation Dressing dry Incision clean, dry, and intact without redness or drainage 5/5 Quadriceps, Tibialis Anterior, EHL, Gastroc, Soleus, Peroneals Normal sensation Palpable DT/PT, CR <2 sec No distal edema Results Result Diagram: 03/12/16 0635 03/12/16 0635 GAIL YEUNG PA-C Mar 14, 2016 17:41
[2016-03-14 19:46] VITALS: BP 158/73; RESP 19
[2016-03-14] MEDS: SENNA TAB PO SCH (21:00)
[2016-03-14] MEDS: DOXAZOSIN 2 MG TAB PO SCH (21:16)
[2016-03-14] MEDS: traMADol 50 MG TAB PO PRN (21:33)
[2016-03-14] MEDS: ZOLPIDEM 5 MG TAB PO PRN (21:34)
[2016-03-15 01:00] VITALS: BP 160/76; PULSE 70; RESP 16
[2016-03-15] MEDS ORDERED: hydrALAzine 20 MG INJ IV PRN (01:00)
[2016-03-15] MEDS ORDERED: ZOLPIDEM 5 MG TAB PO PRN (01:00)
[2016-03-15 01:54] VITALS: BP 133/73; PULSE 60; RESP 18
[2016-03-15] MEDS: ACCUCHECK AT 2AM (Patients on SS coverage) XX SCH (02:00)
[2016-03-15] MEDS: FUROSEMIDE 40 MG TAB PO SCH (06:37)
[2016-03-15] MEDS: Insulin NOVOLOG SS MILD Algorithm (SS with meals and bedtime) SC SCH ×2 (07:05→12:15)
[2016-03-15 07:30] VITALS: BP 138/65; RESP 18
[2016-03-15] MEDS: INSULIN ASPART [NOVOLOG] 3 ML PEN SC SCH ×3 (07:35→17:14)
[2016-03-15] MEDS: HYDROCODONE/APAP (5/325) TAB PO PRN ×2 (08:13→12:16)
[2016-03-15] MEDS: metFORMIN 500 MG TAB PO SCH ×2 (08:14→17:52)
[2016-03-15] MEDS: FAMOTIDINE 20 MG TAB PO SCH (08:14)
[2016-03-15] MEDS: DOCUSATE SODIUM 100 MG CAP PO SCH ×2 (08:14→20:15)
[2016-03-15] MEDS: GENTAMICIN 0.3% 5 ML OPH RIGHT EYE SCH ×2 (08:14→20:13)
[2016-03-15] MEDS: ESCITALOPRAM 10 MG TAB PO SCH (08:15)
[2016-03-15] MEDS: ASPIRIN (EC) 325 MG TAB PO SCH ×2 (08:15→20:06)
[2016-03-15] MEDS: PREGABALIN 25 MG CAP PO SCH ×2 (08:15→20:06)
[2016-03-15] MEDS: LISINOPRIL 20 MG TAB PO SCH ×2 (08:15→20:07)
[2016-03-15] MEDS: METOPROLOL (XL) 25 MG TAB PO SCH ×2 (08:15→20:07)
[2016-03-15] MEDS: CYANOCOBALAMIN 100 MCG TAB PO SCH (08:15)
[2016-03-15] MEDS ORDERED: INSULIN GLARGINE [LANtus] 3 ML PEN SC SCH (09:00)
--- NOTE | 2016-03-15 11:40 | CONS ---
Date/Time of Note Date/Time of Note DATE: 03/15/16 TIME: 11:39 Consult Date/Type/Reason Admit Date/Time Mar 08, 2016 at 15:40 Subjective Feeling better Objective pulm- cta cga ambulation Vital Signs Date Time Temp Pulse Resp B/P Pulse Ox O2 Delivery O2 Flow Rate FiO2 03/15/16 07:30 98.3 60 18 138/65 99 03/15/16 01:54 Room Air Intake and Output 03/14/16 03/14/16 03/15/16 15:00 23:00 07:00 Intake Total 840 ml 300 ml Output Total 450 ml 250 ml 500 ml Balance 390 ml -250 ml -200 ml Results/Medications Result Diagram: 03/12/16 0635 03/12/16 0635 Results 24 hrs Laboratory Tests Test 03/14/16 11:53 03/14/16 12:27 03/14/16 13:00 03/14/16 16:54 Bedside Glucose 52 L 77 106 94 Test 03/14/16 20:23 03/15/16 07:17 Bedside Glucose 170 91 Medications Current Medications Aspirin (Ecotrin) 325 mg BID PO Last administered on 03/15/16 08:15; Admin Dose 325 MG; Start 03/08/16 at 21:00 Pregabalin (Lyrica) 25 mg BID PO Last administered on 03/15/16 08:15; Admin Dose 25 MG; Start 03/08/16 at 21:00 Zolpidem Tartrate (Ambien) 5 mg HS PRN PO INSOMNIA Last administered on 21:34; Admin Dose 5 MG; Start 03/08/16 at 17:00 Ondansetron HCl (Zofran Inj) 4 mg Q6H PRN IV NAUSEA AND/OR VOMITING; Start at 17:00 Lisinopril (Zestril) 20 mg BID PO Last administered on 03/15/16 08:15; Admin Dose 20 MG; Start 03/08/16 at 21:00 Magnesium Hydroxide (Milk Of Mag) 30 ml BID PRN PO CONSTIPATION; Start at 17:00 Metoprolol Succinate (Toprol Xl) 25 mg BID PO Last administered on 03/15/16 08: 15; Admin Dose 25 MG; Start 03/08/16 at 21:00 Miscellaneous Information 1 ea NOTE XX ; Start 03/08/16 at 17:00 Glucose (Glutose) 15 gm Q15M PRN PO DECREASED GLUCOSE; Start 03/08/16 at 17:00 Glucose (Glutose) 22.5 gm Q15M PRN PO DECREASED GLUCOSE; Start 03/08/16 at 17: 00 Dextrose (D50w Syringe) 25 ml Q15M PRN IV DECREASED GLUCOSE; Start 03/08/16 at 17:00 Dextrose (D50w Syringe) 50 ml Q15M PRN IV DECREASED GLUCOSE; Start 03/08/16 at 17:00 Glucagon (Glucagen) 1 mg Q15M PRN IM DECREASED GLUCOSE; Start 03/08/16 at 17:00 Glucose (Glutose) 15 gm Q15M PRN BUCCAL DECREASED GLUCOSE; Start 03/08/16 at 17 :00 Diagnostic Test (Pha) (Accucheck) 1 ea 02 XX Last administered on 03/14/16 02: 13; Admin Dose 1 EA; Start 03/09/16 at 02:00 Acetaminophen/ Hydrocodone Bitart ([place] (5/325)) 1 tab Q6H PRN PO MODERATE PAIN LEVEL 4-6 Last administered on 03/15/16 08:13; Admin Dose 1 TAB; Start at 17:00 Furosemide (Lasix) 40 mg DAILY@06 PO Last administered on 03/15/16 06:37; Admin Dose 40 MG; Start 03/09/16 at 06:00 Famotidine (Pepcid) 20 mg DAILY PO Last administered on 03/15/16 08:14; Admin Dose 20 MG; Start 03/09/16 at 09:00 Escitalopram Oxalate (Lexapro) 10 mg DAILY PO Last administered on 03/15/16 08: 15; Admin Dose 10 MG; Start 03/09/16 at 09:00 Doxazosin Mesylate (Cardura) 2 mg DAILY@21 PO Last administered on 03/14/16 21: 16; Admin Dose 2 MG; Start 03/08/16 at 21:00 Docusate Sodium (Colace) 100 mg BID PO Last administered on 03/15/16 08:14; Admin Dose 100 MG; Start 03/08/16 at 21:00 Diphenhydramine HCl (Benadryl) 25 mg Q6H PRN PO PRURITUS; Start 03/08/16 at 17: 00 Acetaminophen (Tylenol Tab) 650 mg Q6H PRN PO PAIN LEVEL 1-3 OR FEVER; Start at 17:00 Cyanocobalamin (Vitamin B12) 100 mcg DAILY PO Last administered on 03/15/16 08: 15; Admin Dose 100 MCG; Start 03/09/16 at 09:00 Senna (Senokot) 1 tab QHS PO Last administered on 03/12/16 20:33; Admin Dose 1 TAB; Start 03/08/16 at 21:00 Bisacodyl (Dulcolax Supp) 10 mg DAILY PRN [place] CONSTIPATION; Start 03/08/16 at 18 :00 Lactulose (Enulose) 20 gm DAILY PRN PO CONSTIPATION; Start 03/08/16 at 18:00 Tramadol HCl (Ultram) 50 mg Q6H PRN PO PAIN LEVEL 6-10 Last administered on 03/14 21:33; Admin Dose 50 MG; Start 03/09/16 at 11:30 Gentamicin Sulfate (Gentamicin 0.3% Oph Drop) 1 drop BID RIGHT EYE Last administered on 03/15/16 08:14; Admin Dose 1 DROP; Start 03/12/16 at 15:00; Stop 03/16/16 at 21:01 Insulin Glargine (Lantus) 26 unit QAM SC Last administered on 03/15/16 08:17; Admin Dose 26 UNIT; Start 03/15/16 at 09:00 Hydralazine HCl (Apresoline) 10 mg Q4H PRN IV ELEVATED SYSTOLIC BP; Start at 01:00 Assessment/Plan Additional Assessment/Plan Rehab- R IT hip fx-s/p IMR Continue treatmetn plan. Anticipate dc Friday HTN DM CAD CPOD - h.o prostate CA GUERDA LYNN MD Mar 15, 2016 11:40
--- NOTE | 2016-03-15 15:24 | PN ---
Date/Time of Note Date/Time of Note DATE: 03/15/16 TIME: 15:24 Assessment/Plan VTE Prophylaxis VTE Prophylaxis Intervention: SCD's Lines/Catheters IV [facility]ter Type (from [facility] Urinary Cath still in place: No Assessment/Plan Chief Complaint/Hosp Course 1. Mildly comminuted and displaced right intertrochanteric fracture of the femur. Status post closed reduction and intramedullary rodding on 03/05/2016. Continue pain control. Undergoing acute rehabilitation. 2. Type 2 diabetes mellitus, uncontrolled. Hemoglobin A1c 9.4. Continue sliding scale insulin along with basal insulin and Lantus insulin. 3. Essential hypertension. Continue antihypertensives. Blood pressure fairly well controlled. 4. History of depression. Continue SSRIs. 5. CAD, status post stenting in the past. Continue aspirin. 6. History of prostate cancer. S/P surgical resection and radiation. 7. Normocytic, normochromic anemia. Underlying iron deficiency. 8. Fluid, electrolytes and nutrition. Carbohydrate controlled, low cholesterol diet. 9. DVT prophylaxis. Aspirin and SCDs. 10. Gastrointestinal prophylaxis with histamine 2 receptor blockers. PLAN: Continue rehabilitation. Will continue to follow the patient along with you. Case discussed with Dr. Albarran. Problems: Subjective 24 Hr Interval Summary Free Text/Dictation Pain well controlled. Progressing well with rehabilitation. Exam/Review of Systems Vital Signs Vitals Vital Signs Date Time Temp Pulse Resp B/P Pulse Ox O2 Delivery O2 Flow Rate FiO2 03/15/16 07:30 98.3 60 18 138/65 99 03/15/16 01:54 Room Air Intake and Output 03/14/16 03/14/16 03/15/16 15:00 23:00 07:00 Intake Total 840 ml 300 ml Output Total 450 ml 250 ml 500 ml Balance 390 ml -250 ml -200 ml Exam GENERAL: This is a well-built, well-nourished male patient lying in bed in no apparent distress. HEENT: Head normocephalic and atraumatic. Eyes: Anicteric sclerae. Conjunctivae clear. ENT: Nasal septum is midline. Oral mucosa is dry. NECK: Supple. No JVD noticed. RESPIRATORY: Bilaterally clear to auscultation. No adventitious breath sounds heard. No use of accessory muscles of respiration. CARDIAC: Regular rate and rhythm, bradycardia. ABDOMEN: Soft, nontender and nondistended. Bowel sounds positive in all 4 quadrants. GENITOURINARY: The patient has a Ch catheter in place. EXTREMITIES: No cyanosis, no clubbing. RLE edema. Peripheral pulses palpable. NEUROLOGIC: The patient is awake, alert and oriented. Cranial nerves are grossly intact. Results Result Diagram: 03/12/16 0635 03/12/16 0635 Results 24 hrs Laboratory Tests Test 03/14/16 16:54 03/14/16 20:23 03/15/16 07:17 03/15/16 11:50 Bedside Glucose 94 170 91 218 Medications Medications Current Medications Aspirin (Ecotrin) 325 mg BID PO Last administered on 03/15/16 08:15; Admin Dose 325 MG; Start 03/08/16 at 21:00 Pregabalin (Lyrica) 25 mg BID PO Last administered on 03/15/16 08:15; Admin Dose 25 MG; Start 03/08/16 at 21:00 Zolpidem Tartrate (Ambien) 5 mg HS PRN PO INSOMNIA Last administered on 21:34; Admin Dose 5 MG; Start 03/08/16 at 17:00 Ondansetron HCl (Zofran Inj) 4 mg Q6H PRN IV NAUSEA AND/OR VOMITING; Start at 17:00 Lisinopril (Zestril) 20 mg BID PO Last administered on 03/15/16 08:15; Admin Dose 20 MG; Start 03/08/16 at 21:00 Magnesium Hydroxide (Milk Of Mag) 30 ml BID PRN PO CONSTIPATION; Start at 17:00 Metoprolol Succinate (Toprol Xl) 25 mg BID PO Last administered on 03/15/16 08: 15; Admin Dose 25 MG; Start 03/08/16 at 21:00 Miscellaneous Information 1 ea NOTE XX ; Start 03/08/16 at 17:00 Glucose (Glutose) 15 gm Q15M PRN PO DECREASED GLUCOSE; Start 03/08/16 at 17:00 Glucose (Glutose) 22.5 gm Q15M PRN PO DECREASED GLUCOSE; Start 03/08/16 at 17: 00 Dextrose (D50w Syringe) 25 ml Q15M PRN IV DECREASED GLUCOSE; Start 03/08/16 at 17:00 Dextrose (D50w Syringe) 50 ml Q15M PRN IV DECREASED GLUCOSE; Start 03/08/16 at 17:00 Glucagon (Glucagen) 1 mg Q15M PRN IM DECREASED GLUCOSE; Start 03/08/16 at 17:00 Glucose (Glutose) 15 gm Q15M PRN BUCCAL DECREASED GLUCOSE; Start 03/08/16 at 17 :00 Diagnostic Test (Pha) (Accucheck) 1 ea 02 XX Last administered on 03/14/16 02: 13; Admin Dose 1 EA; Start 03/09/16 at 02:00 Acetaminophen/ Hydrocodone Bitart ([place] (5/325)) 1 tab Q6H PRN PO MODERATE PAIN LEVEL 4-6 Last administered on 03/15/16 12:16; Admin Dose 1 TAB; Start at 17:00 Furosemide (Lasix) 40 mg DAILY@06 PO Last administered on 03/15/16 06:37; Admin Dose 40 MG; Start 03/09/16 at 06:00 Famotidine (Pepcid) 20 mg DAILY PO Last administered on 03/15/16 08:14; Admin Dose 20 MG; Start 03/09/16 at 09:00 Escitalopram Oxalate (Lexapro) 10 mg DAILY PO Last administered on 03/15/16 08: 15; Admin Dose 10 MG; Start 03/09/16 at 09:00 Doxazosin Mesylate (Cardura) 2 mg DAILY@21 PO Last administered on 03/14/16 21: 16; Admin Dose 2 MG; Start 03/08/16 at 21:00 Docusate Sodium (Colace) 100 mg BID PO Last administered on 03/15/16 08:14; Admin Dose 100 MG; Start 03/08/16 at 21:00 Diphenhydramine HCl (Benadryl) 25 mg Q6H PRN PO PRURITUS; Start 03/08/16 at 17: 00 Acetaminophen (Tylenol Tab) 650 mg Q6H PRN PO PAIN LEVEL 1-3 OR FEVER; Start at 17:00 Cyanocobalamin (Vitamin B12) 100 mcg DAILY PO Last administered on 03/15/16 08: 15; Admin Dose 100 MCG; Start 03/09/16 at 09:00 Senna (Senokot) 1 tab QHS PO Last administered on 1/31/17at 20:33; Admin Dose 1 TAB; Start 03/08/16 at 21:00 Bisacodyl (Dulcolax Supp) 10 mg DAILY PRN [place] CONSTIPATION; Start 03/08/16 at 18 :00 Lactulose (Enulose) 20 gm DAILY PRN PO CONSTIPATION; Start 03/08/16 at 18:00 Tramadol HCl (Ultram) 50 mg Q6H PRN PO PAIN LEVEL 6-10 Last administered on 03/14 21:33; Admin Dose 50 MG; Start 03/09/16 at 11:30 Gentamicin Sulfate (Gentamicin 0.3% Oph Drop) 1 drop BID RIGHT EYE Last administered on 03/15/16 08:14; Admin Dose 1 DROP; Start 03/12/16 at 15:00; Stop 03/16/16 at 21:01 Insulin Glargine (Lantus) 26 unit QAM SC Last administered on 03/15/16 08:17; Admin Dose 26 UNIT; Start 03/15/16 at 09:00 Hydralazine HCl (Apresoline) 10 mg Q4H PRN IV ELEVATED SYSTOLIC BP; Start at 01:00 BRYAN TURNER NP Mar 15, 2016 15:24
--- NOTE | 2016-03-15 15:50 | PN ---
DATE: 03/15/2016 CARDIOLOGY FOLLOWUP SUBJECTIVE: Discussed with the staff. Rhythm strip was reviewed. The patient remains chest pain-f ree. No palpitation, no shortness of breath. Working with physical therapy. MEDICATIONS: Reviewed. PHYSICAL EXAMINATION: VITAL SIGNS: Temperature 98.3, heart rate of 60, blood pressure 130/65, respiration rate of 18, sat urating 99%. HEENT: Normocephalic, atraumatic. Pupils are equal. CARDIOVASCULAR: Regular rate and rhythm. PULMONARY: With no wheezes. GASTROINTESTINAL: Soft, nontender. EXTREMITIES: Positive right lower extremity edema. NEUROLOGIC: Awake and alert. PSYCHIATRIC: Calm, pleasant. LABORATORY: Glucose 218. ASSESSMENT AND PLAN: 1. Coronary artery disease, history of myocardial infarction, history of PCI. 2. History of congestive heart failure with diastolic dysfunction, currently stable. 3. Dyslipidemia. 4. Hip fracture status post surgery. 5. Hypertension, under good control. RECOMMENDATIONS: We will continue with the current cardiac care. Physical therapy and rehab will b e continued. Diabetic management will be continued. Dictated By: LORETTA JEAN-BAPTISTE/VICENTA Conf#: [id number] DID#: [id number] CC: BON WEEKS DO;*EndCC*
[2016-03-15] MEDS: traMADol 50 MG TAB PO PRN (17:52)
[2016-03-15 20:00] VITALS: BP 142/68; PULSE 66; RESP 18
[2016-03-15] MEDS: DOXAZOSIN 2 MG TAB PO SCH (20:07)
[2016-03-15] MEDS: SENNA TAB PO SCH (20:15)
[2016-03-15] MEDS: ZOLPIDEM 5 MG TAB PO PRN (21:38)
[2016-03-16] MEDS: ACCUCHECK AT 2AM (Patients on SS coverage) XX SCH (02:00)
[2016-03-16] MEDS: FUROSEMIDE 40 MG TAB PO SCH (06:34)
--- NOTE | 2016-03-16 07:43 | CONS ---
Date/Time of Note Date/Time of Note DATE: 03/16/16 TIME: 07:43 Consult Date/Type/Reason Admit Date/Time Mar 08, 2016 at 15:40 Subjective Resting comfortable Objective pulm- cta sba ambulation Vital Signs Date Time Temp Pulse Resp B/P Pulse Ox O2 Delivery O2 Flow Rate FiO2 03/15/16 20:00 98.2 66 18 142/68 97 Room Air Intake and Output 03/15/16 03/15/16 03/16/16 15:00 23:00 07:00 Intake Total 360 ml 380 ml Output Total 580 ml 800 ml Balance -220 ml -420 ml Results/Medications Result Diagram: 03/12/16 0635 03/15/16 1638 Results 24 hrs Laboratory Tests Test 03/15/16 11:50 03/15/16 15:56 03/15/16 16:18 03/15/16 16:38 Bedside Glucose 218 49 *L 62 L Glucose Level 55 L Test 03/15/16 16:43 03/15/16 17:04 03/15/16 20:12 03/16/16 07:37 Bedside Glucose 61 L 72 220 88 Medications Current Medications Aspirin (Ecotrin) 325 mg BID PO Last administered on 03/15/16 20:06; Admin Dose 325 MG; Start 03/08/16 at 21:00 Pregabalin (Lyrica) 25 mg BID PO Last administered on 03/15/16 20:06; Admin Dose 25 MG; Start 03/08/16 at 21:00 Zolpidem Tartrate (Ambien) 5 mg HS PRN PO INSOMNIA Last administered on 21:38; Admin Dose 5 MG; Start 03/08/16 at 17:00 Ondansetron HCl (Zofran Inj) 4 mg Q6H PRN IV NAUSEA AND/OR VOMITING; Start at 17:00 Lisinopril (Zestril) 20 mg BID PO Last administered on 03/15/16 20:07; Admin Dose 20 MG; Start 03/08/16 at 21:00 Magnesium Hydroxide (Milk Of Mag) 30 ml BID PRN PO CONSTIPATION; Start at 17:00 Metoprolol Succinate (Toprol Xl) 25 mg BID PO Last administered on 03/15/16 20: 07; Admin Dose 25 MG; Start 03/08/16 at 21:00 Miscellaneous Information 1 ea NOTE XX ; Start 03/08/16 at 17:00 Glucose (Glutose) 15 gm Q15M PRN PO DECREASED GLUCOSE Last administered on 16:48; Admin Dose 15 GM; Start 03/08/16 at 17:00 Glucose (Glutose) 22.5 gm Q15M PRN PO DECREASED GLUCOSE; Start 03/08/16 at 17: 00 Dextrose (D50w Syringe) 25 ml Q15M PRN IV DECREASED GLUCOSE; Start 03/08/16 at 17:00 Dextrose (D50w Syringe) 50 ml Q15M PRN IV DECREASED GLUCOSE; Start 03/08/16 at 17:00 Glucagon (Glucagen) 1 mg Q15M PRN IM DECREASED GLUCOSE; Start 03/08/16 at 17:00 Glucose (Glutose) 15 gm Q15M PRN BUCCAL DECREASED GLUCOSE; Start 03/08/16 at 17 :00 Diagnostic Test (Pha) (Accucheck) 1 ea 02 XX Last administered on 03/14/16 02: 13; Admin Dose 1 EA; Start 03/09/16 at 02:00 Acetaminophen/ Hydrocodone Bitart ([place] (5/325)) 1 tab Q6H PRN PO MODERATE PAIN LEVEL 4-6 Last administered on 03/15/16 12:16; Admin Dose 1 TAB; Start at 17:00 Furosemide (Lasix) 40 mg DAILY@06 PO Last administered on 03/16/16 06:34; Admin Dose 40 MG; Start 03/09/16 at 06:00 Famotidine (Pepcid) 20 mg DAILY PO Last administered on 03/15/16 08:14; Admin Dose 20 MG; Start 03/09/16 at 09:00 Escitalopram Oxalate (Lexapro) 10 mg DAILY PO Last administered on 03/15/16 08: 15; Admin Dose 10 MG; Start 03/09/16 at 09:00 Doxazosin Mesylate (Cardura) 2 mg DAILY@21 PO Last administered on 03/15/16 20: 07; Admin Dose 2 MG; Start 03/08/16 at 21:00 Docusate Sodium (Colace) 100 mg BID PO Last administered on 03/15/16 08:14; Admin Dose 100 MG; Start 03/08/16 at 21:00 Diphenhydramine HCl (Benadryl) 25 mg Q6H PRN PO PRURITUS; Start 03/08/16 at 17: 00 Acetaminophen (Tylenol Tab) 650 mg Q6H PRN PO PAIN LEVEL 1-3 OR FEVER; Start at 17:00 Cyanocobalamin (Vitamin B12) 100 mcg DAILY PO Last administered on 03/15/16 08: 15; Admin Dose 100 MCG; Start 03/09/16 at 09:00 Senna (Senokot) 1 tab QHS PO Last administered on 03/12/16 20:33; Admin Dose 1 TAB; Start 03/08/16 at 21:00 Bisacodyl (Dulcolax Supp) 10 mg DAILY PRN [place] CONSTIPATION; Start 03/08/16 at 18 :00 Lactulose (Enulose) 20 gm DAILY PRN PO CONSTIPATION; Start 03/08/16 at 18:00 Tramadol HCl (Ultram) 50 mg Q6H PRN PO PAIN LEVEL 6-10 Last administered on 03/15 17:52; Admin Dose 50 MG; Start 03/09/16 at 11:30 Gentamicin Sulfate (Gentamicin 0.3% Oph Drop) 1 drop BID RIGHT EYE Last administered on 03/15/16 20:13; Admin Dose 1 DROP; Start 03/12/16 at 15:00; Stop 03/16/16 at 21:01 Hydralazine HCl (Apresoline) 10 mg Q4H PRN IV ELEVATED SYSTOLIC BP; Start at 01:00 Insulin Glargine (Lantus) 22 unit QAM SC ; Start 03/16/16 at 09:00 Assessment/Plan Additional Assessment/Plan Rehab- R IT hip fx-s/p IMR Continue rehab, Anticipate dc Friday HTN DM CAD CPOD - h.o prostate CA GUERDA LYNN MD Mar 16, 2016 07:43
[2016-03-16] MEDS: metFORMIN 500 MG TAB PO SCH ×2 (07:56→17:24)
[2016-03-16] MEDS: INSULIN ASPART [NOVOLOG] 3 ML PEN SC SCH ×3 (07:57→17:25)
[2016-03-16 08:00] VITALS: BP 110/65; PULSE 60; RESP 18
[2016-03-16] MEDS: CYANOCOBALAMIN 100 MCG TAB PO SCH (08:38)
[2016-03-16] MEDS: GENTAMICIN 0.3% 5 ML OPH RIGHT EYE SCH ×2 (08:38→20:43)
[2016-03-16] MEDS: ESCITALOPRAM 10 MG TAB PO SCH (08:38)
[2016-03-16] MEDS: DOCUSATE SODIUM 100 MG CAP PO SCH ×2 (08:47→20:44)
[2016-03-16] MEDS: FAMOTIDINE 20 MG TAB PO SCH (08:47)
[2016-03-16] MEDS: ASPIRIN (EC) 325 MG TAB PO SCH ×2 (08:47→20:45)
[2016-03-16] MEDS: LISINOPRIL 20 MG TAB PO SCH ×2 (08:47→20:43)
[2016-03-16] MEDS: METOPROLOL (XL) 25 MG TAB PO SCH ×2 (08:47→20:44)
[2016-03-16] MEDS: PREGABALIN 25 MG CAP PO SCH ×2 (09:00→20:44)
[2016-03-16] MEDS ORDERED: INSULIN GLARGINE [LANtus] 3 ML PEN SC SCH (09:00)
[2016-03-16] MEDS: traMADol 50 MG TAB PO PRN (14:19)
--- NOTE | 2016-03-16 15:11 | PN ---
Date/Time of Note Date/Time of Note DATE: 03/16/16 TIME: 15:08 Assessment/Plan VTE Prophylaxis VTE Prophylaxis Intervention: LMWH Lines/Catheters [facility] Urinary Cath still in place: No Assessment/Plan Problems: (1) Essential hypertension Status: Chronic Comment: Well-controlled (2) Hyperlipidemia Status: Chronic Comment: On treatment and stable Qualifiers: Hyperlipidemia type: pure hypercholesterolemia Qualified Code: E78.00 - Pure hypercholesterolemia (3) Systolic and diastolic CHF, chronic Status: Chronic Comment: Good control (4) COPD (chronic obstructive pulmonary disease) Status: Chronic Comment: Adequately controlled Qualifiers: COPD type: emphysema Emphysema type: unspecified Qualified Code: J43.9 - Pulmonary emphysema, unspecified emphysema type Assessment/Plan Status post ORIF of hip fracture; stable and improving with diligent rehab Subjective 24 Hr Interval Summary Constitutional: no complaints Eyes: no complaints Cardiovascular: no complaints Gastrointestinal: no complaints Genitourinary: no complaints Exam/Review of Systems Vital Signs Vitals Vital Signs Date Time Temp Pulse Resp B/P Pulse Ox O2 Delivery O2 Flow Rate FiO2 03/16/16 08:00 98.2 60 18 110/65 98 Room Air Intake and Output 03/15/16 03/15/16 03/16/16 15:00 23:00 07:00 Intake Total 360 ml 380 ml Output Total 580 ml 800 ml Balance -220 ml -420 ml Exam Constitutional: alert, oriented Respiratory: clear to auscultation, normal air movement Cardiovascular: nl pulses, regular rate and rhythm Results Result Diagram: 03/12/16 0635 03/15/16 1638 Results 24 hrs Laboratory Tests Test 03/15/16 15:56 03/15/16 16:18 03/15/16 16:38 03/15/16 16:43 Bedside Glucose 49 *L 62 L 61 L Glucose Level 55 L Test 03/15/16 17:04 03/15/16 20:12 03/16/16 07:37 03/16/16 13:01 Bedside Glucose 72 220 88 62 L Test 03/16/16 13:21 Bedside Glucose 86 Medications Medications Current Medications Aspirin (Ecotrin) 325 mg BID PO Last administered on 03/16/16t 08:47; Admin Dose 325 MG; Start 03/08/16 at 21:00 Pregabalin (Lyrica) 25 mg BID PO Last administered on 03/16/16 09:00; Admin Dose 25 MG; Start 03/08/16 at 21:00 Zolpidem Tartrate (Ambien) 5 mg HS PRN PO INSOMNIA Last administered on 21:38; Admin Dose 5 MG; Start 03/08/16 at 17:00 Ondansetron HCl (Zofran Inj) 4 mg Q6H PRN IV NAUSEA AND/OR VOMITING; Start at 17:00 Lisinopril (Zestril) 20 mg BID PO Last administered on 03/16/16 08:47; Admin Dose 20 MG; Start 03/08/16 at 21:00 Magnesium Hydroxide (Milk Of Mag) 30 ml BID PRN PO CONSTIPATION; Start at 17:00 Metoprolol Succinate (Toprol Xl) 25 mg BID PO Last administered on 03/16/16 08: 47; Admin Dose 25 MG; Start 03/08/16 at 21:00 Miscellaneous Information 1 ea NOTE XX ; Start 03/08/16 at 17:00 Glucose (Glutose) 15 gm Q15M PRN PO DECREASED GLUCOSE Last administered on 16:48; Admin Dose 15 GM; Start 03/08/16 at 17:00 Glucose (Glutose) 22.5 gm Q15M PRN PO DECREASED GLUCOSE; Start 03/08/16 at 17: 00 Dextrose (D50w Syringe) 25 ml Q15M PRN IV DECREASED GLUCOSE; Start 03/08/16 at 17:00 Dextrose (D50w Syringe) 50 ml Q15M PRN IV DECREASED GLUCOSE; Start 03/08/16 at 17:00 Glucagon (Glucagen) 1 mg Q15M PRN IM DECREASED GLUCOSE; Start 03/08/16 at 17:00 Glucose (Glutose) 15 gm Q15M PRN BUCCAL DECREASED GLUCOSE; Start 03/08/16 at 17 :00 Diagnostic Test (Pha) (Accucheck) 1 ea 02 XX Last administered on 03/14/16 02: 13; Admin Dose 1 EA; Start 03/09/16 at 02:00 Acetaminophen/ Hydrocodone Bitart ([place] (5/325)) 1 tab Q6H PRN PO MODERATE PAIN LEVEL 4-6 Last administered on 03/15/16 12:16; Admin Dose 1 TAB; Start at 17:00 Furosemide (Lasix) 40 mg DAILY@06 PO Last administered on 03/16/16 06:34; Admin Dose 40 MG; Start 03/09/16 at 06:00 Famotidine (Pepcid) 20 mg DAILY PO Last administered on 03/16/16 08:47; Admin Dose 20 MG; Start 03/09/16 at 09:00 Escitalopram Oxalate (Lexapro) 10 mg DAILY PO Last administered on 03/16/16 08: 38; Admin Dose 10 MG; Start 03/09/16 at 09:00 Doxazosin Mesylate (Cardura) 2 mg DAILY@21 PO Last administered on 03/15/16 20: 07; Admin Dose 2 MG; Start 03/08/16 at 21:00 Docusate Sodium (Colace) 100 mg BID PO Last administered on 03/16/16 08:47; Admin Dose 100 MG; Start 03/08/16 at 21:00 Diphenhydramine HCl (Benadryl) 25 mg Q6H PRN PO PRURITUS; Start 03/08/16 at 17: 00 Acetaminophen (Tylenol Tab) 650 mg Q6H PRN PO PAIN LEVEL 1-3 OR FEVER; Start at 17:00 Cyanocobalamin (Vitamin B12) 100 mcg DAILY PO Last administered on 03/16/16 08: 38; Admin Dose 100 MCG; Start 03/09/16 at 09:00 Senna (Senokot) 1 tab QHS PO Last administered on 03/12/16 20:33; Admin Dose 1 TAB; Start 03/08/16 at 21:00 Bisacodyl (Dulcolax Supp) 10 mg DAILY PRN [place] CONSTIPATION; Start 03/08/16 at 18 :00 Lactulose (Enulose) 20 gm DAILY PRN PO CONSTIPATION; Start 03/08/16 at 18:00 Tramadol HCl (Ultram) 50 mg Q6H PRN PO PAIN LEVEL 6-10 Last administered on 03/16 14:19; Admin Dose 50 MG; Start 03/09/16 at 11:30 Gentamicin Sulfate (Gentamicin 0.3% Oph Drop) 1 drop BID RIGHT EYE Last administered on 03/16/16 08:38; Admin Dose 1 DROP; Start 03/12/16 at 15:00; Stop 03/16/16 at 21:01 Hydralazine HCl (Apresoline) 10 mg Q4H PRN IV ELEVATED SYSTOLIC BP; Start at 01:00 Insulin Glargine (Lantus) 22 unit QAM SC Last administered on 03/16/16t 08:49; Admin Dose 22 UNIT; Start 03/16/16 at 09:00 IMMANUEL MAXWELL MD Mar 16, 2016 15:10
[2016-03-16 20:10] VITALS: BP 154/72; PULSE 67; RESP 18
[2016-03-16] MEDS: DOXAZOSIN 2 MG TAB PO SCH (20:45)
[2016-03-16] MEDS: SENNA TAB PO SCH (20:45)
[2016-03-16] MEDS: ZOLPIDEM 5 MG TAB PO PRN (20:45)
[2016-03-17] MEDS: ZOLPIDEM 5 MG TAB PO PRN ×2 (01:09→20:46)
[2016-03-17] MEDS: ACCUCHECK AT 2AM (Patients on SS coverage) XX SCH (02:00)
[2016-03-17] MEDS: traMADol 50 MG TAB PO PRN (04:19)
[2016-03-17 05:02] VITALS: BP 163/71; PULSE 56
[2016-03-17] MEDS: FUROSEMIDE 40 MG TAB PO SCH (05:02)
[2016-03-17 07:00] VITALS: BP 143/70; PULSE 60
[2016-03-17] MEDS: metFORMIN 500 MG TAB PO SCH ×2 (07:46→17:27)
[2016-03-17] MEDS: INSULIN ASPART [NOVOLOG] 3 ML PEN SC SCH ×3 (07:48→17:30)
[2016-03-17 08:00] VITALS: BP 138/63; PULSE 62; RESP 20
[2016-03-17] MEDS: DOCUSATE SODIUM 100 MG CAP PO SCH ×2 (09:00→20:54)
[2016-03-17] MEDS: FAMOTIDINE 20 MG TAB PO SCH (09:26)
[2016-03-17] MEDS: PREGABALIN 25 MG CAP PO SCH ×2 (09:26→20:46)
[2016-03-17] MEDS: CYANOCOBALAMIN 100 MCG TAB PO SCH (09:26)
[2016-03-17] MEDS: ESCITALOPRAM 10 MG TAB PO SCH (09:26)
[2016-03-17] MEDS: ASPIRIN (EC) 325 MG TAB PO SCH ×2 (09:27→20:48)
[2016-03-17] MEDS: INSULIN GLARGINE [LANtus] 3 ML PEN SC SCH (09:31)
[2016-03-17] MEDS: LISINOPRIL 20 MG TAB PO SCH ×2 (09:36→20:47)
[2016-03-17] MEDS: METOPROLOL (XL) 25 MG TAB PO SCH ×2 (09:37→20:50)
--- NOTE | 2016-03-17 13:30 | PN ---
Date/Time of Note Date/Time of Note DATE: 03/17/16 TIME: 13:28 Assessment/Plan VTE Prophylaxis VTE Prophylaxis Intervention: other Lines/Catheters [facility] Saline Lock Urinary Cath still in place: No Assessment/Plan Problems: (1) Diabetes mellitus type 2 in nonobese Status: Chronic Comment: Excellent control. We have actually had directed back on his medications. At discharge she can return to his home regimen (2) COPD (chronic obstructive pulmonary disease) Status: Chronic Comment: Stable and well-controlled Qualifiers: COPD type: emphysema Emphysema type: unspecified Qualified Code: J43.9 - Pulmonary emphysema, unspecified emphysema type (3) Status post closed fracture of right hip Status: Acute Comment: Recuperating nicely (4) Iron deficiency anemia Status: Chronic Comment: Noted he has been on replacement (5) Tobacco abuse disorder Status: Chronic Comment: Re-counseled (6) Systolic and diastolic CHF, chronic Status: Chronic Comment: Stable (7) Essential hypertension Status: Chronic Comment: Controlled Subjective 24 Hr Interval Summary Free Text/Dictation Patient reading newspaper Respiratory: no complaints Cardiovascular: no complaints Exam/Review of Systems Vital Signs Vitals Vital Signs Date Time Temp Pulse Resp B/P Pulse Ox O2 Delivery O2 Flow Rate FiO2 03/17/16 08:00 97.6 62 20 138/63 98 Room Air Intake and Output 03/16/16 03/16/16 03/17/16 15:00 23:00 07:00 Intake Total 300 ml Output Total 400 ml Balance -100 ml Exam No changes Respiratory: clear to auscultation, normal air movement Cardiovascular: nl pulses, regular rate and rhythm Results Result Diagram: 03/15/16 1638 Results 24 hrs Laboratory Tests Test 03/16/16 17:05 03/16/16 21:18 03/16/16 22:26 03/17/16 07:29 Bedside Glucose 235 H 79 109 124 Test 03/17/16 11:38 Bedside Glucose 118 Medications Medications Current Medications Aspirin (Ecotrin) 325 mg BID PO Last administered on 03/17/16 09:27; Admin Dose 325 MG; Start 03/08/16 at 21:00 Pregabalin (Lyrica) 25 mg BID PO Last administered on 03/17/16 09:26; Admin Dose 25 MG; Start 03/08/16 at 21:00 Zolpidem Tartrate (Ambien) 5 mg HS PRN PO INSOMNIA Last administered on 01:09; Admin Dose 5 MG; Start 03/08/16 at 17:00 Ondansetron HCl (Zofran Inj) 4 mg Q6H PRN IV NAUSEA AND/OR VOMITING; Start at 17:00 Lisinopril (Zestril) 20 mg BID PO Last administered on 03/17/16 09:36; Admin Dose 20 MG; Start 03/08/16 at 21:00 Magnesium Hydroxide (Milk Of Mag) 30 ml BID PRN PO CONSTIPATION; Start at 17:00 Metoprolol Succinate (Toprol Xl) 25 mg BID PO Last administered on 03/17/16 09: 37; Admin Dose 25 MG; Start 03/08/16 at 21:00 Miscellaneous Information 1 ea NOTE XX ; Start 03/08/16 at 17:00 Glucose (Glutose) 15 gm Q15M PRN PO DECREASED GLUCOSE Last administered on 16:48; Admin Dose 15 GM; Start 03/08/16 at 17:00 Glucose (Glutose) 22.5 gm Q15M PRN PO DECREASED GLUCOSE; Start 03/08/16 at 17: 00 Dextrose (D50w Syringe) 25 ml Q15M PRN IV DECREASED GLUCOSE; Start 03/08/16 at 17:00 Dextrose (D50w Syringe) 50 ml Q15M PRN IV DECREASED GLUCOSE; Start 03/08/16 at 17:00 Glucagon (Glucagen) 1 mg Q15M PRN IM DECREASED GLUCOSE; Start 03/08/16 at 17:00 Glucose (Glutose) 15 gm Q15M PRN BUCCAL DECREASED GLUCOSE; Start 03/08/16 at 17 :00 Diagnostic Test (Pha) (Accucheck) 1 ea 02 XX Last administered on 03/14/16 02: 13; Admin Dose 1 EA; Start 03/09/16 at 02:00 Acetaminophen/ Hydrocodone Bitart ([place] (5/325)) 1 tab Q6H PRN PO MODERATE PAIN LEVEL 4-6 Last administered on 03/15/16 12:16; Admin Dose 1 TAB; Start at 17:00 Furosemide (Lasix) 40 mg DAILY@06 PO Last administered on 03/17/16 05:02; Admin Dose 40 MG; Start 03/09/16 at 06:00 Famotidine (Pepcid) 20 mg DAILY PO Last administered on 03/17/16 09:26; Admin Dose 20 MG; Start 03/09/16 at 09:00 Escitalopram Oxalate (Lexapro) 10 mg DAILY PO Last administered on 03/17/16 09: 26; Admin Dose 10 MG; Start 03/09/16 at 09:00 Doxazosin Mesylate (Cardura) 2 mg DAILY@21 PO Last administered on 03/16/16 20: 45; Admin Dose 2 MG; Start 03/08/16 at 21:00 Docusate Sodium (Colace) 100 mg BID PO Last administered on 03/16/16 20:44; Admin Dose 100 MG; Start 03/08/16 at 21:00 Diphenhydramine HCl (Benadryl) 25 mg Q6H PRN PO PRURITUS; Start 03/08/16 at 17: 00 Acetaminophen (Tylenol Tab) 650 mg Q6H PRN PO PAIN LEVEL 1-3 OR FEVER; Start at 17:00 Cyanocobalamin (Vitamin B12) 100 mcg DAILY PO Last administered on 03/17/16 09: 26; Admin Dose 100 MCG; Start 03/09/16 at 09:00 Senna (Senokot) 1 tab QHS PO Last administered on 03/16/16 20:45; Admin Dose 1 TAB; Start 03/08/16 at 21:00 Bisacodyl (Dulcolax Supp) 10 mg DAILY PRN [place] CONSTIPATION; Start 03/08/16 at 18 :00 Lactulose (Enulose) 20 gm DAILY PRN PO CONSTIPATION; Start 03/08/16 at 18:00 Tramadol HCl (Ultram) 50 mg Q6H PRN PO PAIN LEVEL 6-10 Last administered on 03/17 04:19; Admin Dose 50 MG; Start 03/09/16 at 11:30 Hydralazine HCl (Apresoline) 10 mg Q4H PRN IV ELEVATED SYSTOLIC BP; Start at 01:00 Insulin Glargine (Lantus) 20 unit QAM SC Last administered on 03/17/16 09:31; Admin Dose 20 UNIT; Start 03/17/16 at 09:00 IMMANUEL MAXWELL MD Mar 17, 2016 13:29
[2016-03-17 20:00] VITALS: BP 147/69; RESP 20
[2016-03-17] MEDS: DOXAZOSIN 2 MG TAB PO SCH (20:47)
[2016-03-17] MEDS: SENNA TAB PO SCH (20:54)
[2016-03-18] MEDS: ACCUCHECK AT 2AM (Patients on SS coverage) XX SCH (02:00)
[2016-03-18] MEDS: FUROSEMIDE 40 MG TAB PO SCH (05:28)
[2016-03-18 05:29] VITALS: BP 171/85; PULSE 62
[2016-03-18 06:57] VITALS: BP 164/76; PULSE 62
[2016-03-18 07:30] VITALS: BP 171/81; RESP 18
[2016-03-18] MEDS: ESCITALOPRAM 10 MG TAB PO SCH (08:03)
[2016-03-18] MEDS: METOPROLOL (XL) 25 MG TAB PO SCH (08:03)
[2016-03-18] MEDS: LISINOPRIL 20 MG TAB PO SCH (08:03)
[2016-03-18] MEDS: PREGABALIN 25 MG CAP PO SCH (08:03)
[2016-03-18] MEDS: DOCUSATE SODIUM 100 MG CAP PO SCH (08:04)
[2016-03-18] MEDS: FAMOTIDINE 20 MG TAB PO SCH (08:04)
[2016-03-18] MEDS: ASPIRIN (EC) 325 MG TAB PO SCH (08:04)
[2016-03-18] MEDS: metFORMIN 500 MG TAB PO SCH (08:04)
[2016-03-18] MEDS: INSULIN GLARGINE [LANtus] 3 ML PEN SC SCH (08:08)
[2016-03-18] MEDS: INSULIN ASPART [NOVOLOG] 3 ML PEN SC SCH (08:08)
[2016-03-18] MEDS: HYDROCODONE/APAP (5/325) TAB PO PRN (08:09)
--- NOTE | 2016-03-18 08:59 | PN ---
Date/Time of Note Date/Time of Note DATE: 03/18/16 TIME: 08:58 Assessment/Plan Lines/Catheters IV Catheter Type (from Nrsg): Saline Lock Ch in Place (from Nrsg): No Assessment/Plan Assessment/Plan Stable in ARU, s/p closed reduction IM rodding, right IT fx -dressing changed -d/c provena wound vac -cont plavix -OOB with PT -d/c home today -follow up in the office on 03/22/[address] De La Rosa Subjective 24 Hr Interval Summary Doing well. No acute overnight events. Ecchymosis and swelling improved. Will go home today. Exam/Review of Systems Vital Signs Vitals Vital Signs Date Time Temp Pulse Resp B/P Pulse Ox O2 Delivery O2 Flow Rate FiO2 03/18/16 07:30 98.1 61 18 171/81 97 03/17/16 08:00 Room Air Intake and Output 03/17/16 03/17/16 03/18/16 15:00 23:00 07:00 Intake Total 2100 ml 300 ml Output Total 850 ml Balance 1250 ml 300 ml Exam Free Text/Dictation Dressing dry Incision clean, dry, and intact without redness or drainage 5/5 Quadriceps, Tibialis Anterior, EHL, Gastroc, Soleus, Peroneals Normal sensation Palpable DT/PT, CR <2 sec No distal edema Results Result Diagram: 03/15/16 1638 GAIL YEUNG PA-C Mar 18, 2016 08:59
[2016-03-18] MEDS: CYANOCOBALAMIN 100 MCG TAB PO SCH (09:53)
--- NOTE | 2016-03-18 13:18 | CONS ---
Date/Time of Note Date/Time of Note DATE: 03/18/16 TIME: 13:17 Consult Date/Type/Reason Admit Date/Time Mar 08, 2016 at 15:40 Objective Vital Signs Date Time Temp Pulse Resp B/P Pulse Ox O2 Delivery O2 Flow Rate FiO2 03/18/16 07:30 98.1 61 18 171/81 97 03/17/16 08:00 Room Air Intake and Output 03/17/16 03/17/16 03/18/16 15:00 23:00 07:00 Intake Total 2100 ml 300 ml Output Total 850 ml Balance 1250 ml 300 ml INTERDISCIPLINARY TEAM CONFERENCE BOWEL- Cont BLADDER-Cont SKIN- intact OT- DRESSING-sba BATHING-sba TOILETING-sba PT- BED MOBILITY-sba TRANSFERS-sba/cga AMBULATION-cga W.C. MOBILITY-s A/P- Interdisciplinary team conference held today. Please see interdisciplinary sheet. Working toward d.c. today with post discharge follow up of physical therapy, occupational therapy. Results/Medications Result Diagram: 03/15/16 1638 Results 24 hrs Laboratory Tests Test 03/17/16 17:08 03/17/16 20:11 03/18/16 05:26 03/18/16 07:28 Bedside Glucose 103 74 117 135 Test 03/18/16 12:19 Bedside Glucose 186 Medications Current Medications Aspirin (Ecotrin) 325 mg BID PO Last administered on 03/18/16 08:04; Admin Dose 325 MG; Start 03/08/16 at 21:00 Pregabalin (Lyrica) 25 mg BID PO Last administered on 03/18/16 08:03; Admin Dose 25 MG; Start 03/08/16 at 21:00 Zolpidem Tartrate (Ambien) 5 mg HS PRN PO INSOMNIA Last administered on 20:46; Admin Dose 5 MG; Start 03/08/16 at 17:00 Ondansetron HCl (Zofran Inj) 4 mg Q6H PRN IV NAUSEA AND/OR VOMITING; Start at 17:00 Lisinopril (Zestril) 20 mg BID PO Last administered on 03/18/16 08:03; Admin Dose 20 MG; Start 03/08/16 at 21:00 Magnesium Hydroxide (Milk Of Mag) 30 ml BID PRN PO CONSTIPATION; Start at 17:00 Metoprolol Succinate (Toprol Xl) 25 mg BID PO Last administered on 03/18/16 08: 03; Admin Dose 25 MG; Start 03/08/16 at 21:00 Miscellaneous Information 1 ea NOTE XX ; Start 03/08/16 at 17:00 Glucose (Glutose) 15 gm Q15M PRN PO DECREASED GLUCOSE Last administered on 16:48; Admin Dose 15 GM; Start 03/08/16 at 17:00 Glucose (Glutose) 22.5 gm Q15M PRN PO DECREASED GLUCOSE; Start 03/08/16 at 17: 00 Dextrose (D50w Syringe) 25 ml Q15M PRN IV DECREASED GLUCOSE; Start 03/08/16 at 17:00 Dextrose (D50w Syringe) 50 ml Q15M PRN IV DECREASED GLUCOSE; Start 03/08/16 at 17:00 Glucagon (Glucagen) 1 mg Q15M PRN IM DECREASED GLUCOSE; Start 03/08/16 at 17:00 Glucose (Glutose) 15 gm Q15M PRN BUCCAL DECREASED GLUCOSE; Start 03/08/16 at 17 :00 Diagnostic Test (Pha) (Accucheck) 1 ea 02 XX Last administered on 03/14/16 02: 13; Admin Dose 1 EA; Start 03/09/16 at 02:00 Acetaminophen/ Hydrocodone Bitart ([place] (5/325)) 1 tab Q6H PRN PO MODERATE PAIN LEVEL 4-6 Last administered on 03/18/16 08:09; Admin Dose 1 TAB; Start at 17:00 Furosemide (Lasix) 40 mg DAILY@06 PO Last administered on 03/18/16 05:28; Admin Dose 40 MG; Start 03/09/16 at 06:00 Famotidine (Pepcid) 20 mg DAILY PO Last administered on 03/18/16 08:04; Admin Dose 20 MG; Start 03/09/16 at 09:00 Escitalopram Oxalate (Lexapro) 10 mg DAILY PO Last administered on 03/18/16 08: 03; Admin Dose 10 MG; Start 03/09/16 at 09:00 Doxazosin Mesylate (Cardura) 2 mg DAILY@21 PO Last administered on 03/17/16 20: 47; Admin Dose 2 MG; Start 03/08/16 at 21:00 Docusate Sodium (Colace) 100 mg BID PO Last administered on 03/18/16 08:04; Admin Dose 100 MG; Start 03/08/16 at 21:00 Diphenhydramine HCl (Benadryl) 25 mg Q6H PRN PO PRURITUS; Start 03/08/16 at 17: 00 Acetaminophen (Tylenol Tab) 650 mg Q6H PRN PO PAIN LEVEL 1-3 OR FEVER; Start at 17:00 Cyanocobalamin (Vitamin B12) 100 mcg DAILY PO Last administered on 03/18/16 09: 53; Admin Dose 100 MCG; Start 03/09/16 at 09:00 Senna (Senokot) 1 tab QHS PO Last administered on 03/16/16 20:45; Admin Dose 1 TAB; Start 03/08/16 at 21:00 Bisacodyl (Dulcolax Supp) 10 mg DAILY PRN [place] CONSTIPATION; Start 03/08/16 at 18 :00 Lactulose (Enulose) 20 gm DAILY PRN PO CONSTIPATION; Start 03/08/16 at 18:00 Tramadol HCl (Ultram) 50 mg Q6H PRN PO PAIN LEVEL 6-10 Last administered on 03/17 04:19; Admin Dose 50 MG; Start 03/09/16 at 11:30 Hydralazine HCl (Apresoline) 10 mg Q4H PRN IV ELEVATED SYSTOLIC BP; Start at 01:00 Insulin Glargine (Lantus) 20 unit QAM SC Last administered on 03/18/16 08:08; Admin Dose 20 UNIT; Start 03/17/16 at 09:00 GUERDA LYNN MD Mar 18, 2016 13:17
--- NOTE | 2016-03-18 16:15 | PN ---
Date/Time of Note Date/Time of Note DATE: 03/18/16 TIME: 10;00 Assessment/Plan VTE Prophylaxis VTE Prophylaxis Intervention: other Lines/Catheters [facility] Saline Lock Urinary Cath still in place: No Assessment/Plan Chief Complaint/Hosp Course Chief Complaint/Hosp Course 1. Mildly comminuted and displaced right intertrochanteric fracture of the femur. Status post closed reduction and intramedullary rodding on 03/05/2016. Continue pain control. Postoperative care as per orthopedic surgery. Continue physical therapy. 2. Type 2 diabetes mellitus, uncontrolled. Hemoglobin A1c 9.4. Better controlled, continue Lantus and pre-meals insulin, continue insulin sliding scale 3. Essential hypertension. Continue antihypertensives. Blood pressure fairly well controlled. 4. History of depression. Continue SSRIs. 5. CAD, status post stenting in the past. Continue aspirin. 6. Acute kidney injury. Etiology unclear. Most probably secondary to hemodynamics versus dehydration. Resolved. 7. History of prostate cancer. S/P surgical resection and radiation. 8. Normocytic, normochromic anemia. Underlying iron deficiency. Continue iron supplements. Transfuse PRBCs as needed. 9. DVT prophylaxis. Aspirin and SCDs. 10. Gastrointestinal prophylaxis with histamine 2 receptor blockers. Patient is medically stable for discharge with a close follow up with primary care physician, orthopedic surgeon Patient will be set up with home health for physical therapy Problems: Subjective 24 Hr Interval Summary Free Text/Dictation Patient denies any chest pain or shortness of breath No acute changes Ambulating with minimal assist Exam/Review of Systems Vital Signs Vitals Vital Signs Date Time Temp Pulse Resp B/P Pulse Ox O2 Delivery O2 Flow Rate FiO2 03/18/16 07:30 98.1 61 18 171/81 97 03/17/16 08:00 Room Air Intake and Output 03/17/16 03/17/16 03/18/16 15:00 23:00 07:00 Intake Total 2100 ml 300 ml Output Total 850 ml Balance 1250 ml 300 ml Exam General: The patient is well-developed, Not in acute distress. HEENT: Atraumatic, normocephalic. The pupils are equal and round . Neck: Supple with full range of motion. Chest: Normal expansion of the thorax during inspiration Lungs: Clear to auscultation bilaterally Heart: Normal S1-S2, Regular rhythm and rate. Abdomen: Soft , nontender, nondistended , bowel sounds are present. Extremities: Right hip surgical site ecchymosis with no evidence of active bleeding, no edema no cyanosis Neurologic: Normal mental status,The patient is awake, alert and oriented . Results Result Diagram: 03/15/16 1638 Results 24 hrs Laboratory Tests Test 03/17/16 17:08 03/17/16 20:11 03/18/16 05:26 03/18/16 07:28 Bedside Glucose 103 74 117 135 Test 03/18/16 12:19 Bedside Glucose 186 SIM GALEANO MD Mar 18, 2016 16:15
== END 2016-03-18 13:00 | disposition home health service (06) | DRG 560 ==
LOC: VRC 15:40
PROVIDERS: ADMIT Physical Medicine & Rehabilitation; ATTEND Family Medicine
DX: S72.141D Displaced intertrochanteric fracture of right femur, subsequent encounter for closed fracture with routine healing (principal); D62 Acute posthemorrhagic anemia; E11.65 Type 2 diabetes mellitus with hyperglycemia; I11.0 Hypertensive heart disease with heart failure; I50.42 Chronic combined systolic (congestive) and diastolic (congestive) heart failure; J43.9 Emphysema, unspecified; E53.8 Deficiency of other specified B group vitamins; I25.2 Old myocardial infarction; I25.10 Atherosclerotic heart disease of native coronary artery without angina pectoris; G89.18 Other acute postprocedural pain; F32.9 Major depressive disorder, single episode, unspecified; R33.9 Retention of urine, unspecified; K59.00 Constipation, unspecified; D50.9 Iron deficiency anemia, unspecified; E78.5 Hyperlipidemia, unspecified; Z95.5 Presence of coronary angioplasty implant and graft; Z85.46 Personal history of malignant neoplasm of prostate; Z79.4 Long term (current) use of insulin; Z79.899 Other long term (current) drug therapy; Z72.0 Tobacco use
CPT/HCPCS: 80048; 80053; 81001; 81003; 82947; 82962; 85025; 87081; 87086; 90686; 92507; 92523; 95852; 97110; 97112; 97116; 97150; 97167; 97530; 97535; 97542; J1815; J3420

== ENCOUNTER → 2016-03-22 | Outpatient (CLI) | payer MEDICARE, BC ==
--- NOTE | 2016-03-22 14:04 | HKNOTE ---
DATE OF SERVICE: 03/22/2016 INTERVAL HISTORY: The patient presents today for his followup evaluation on his right hip. He is now 2-1/2 weeks status post closed reduction intramedullary rodding for his right intertrochanteric fracture. He is doing well overall. He is now home. He is toe touch weightbearing using a walker. He has some mild pain. The swelling and ecchymosis are improving despite taking Plavix. He presents today for a postoperative evaluation. PHYSICAL EXAMINATION: On examination today, he is alert and oriented x4, in no acute distress. He is seen today with his . He is toe touch weightbearing using a walker. Exam of the incisions demonstrated them to be clean, dry and intact. They are well healed. Bearden are in place. He does have some residual right lower extremity soft tissue swelling with improving ecchymosis. Homans sign is negative. Compartments are otherwise soft. He is neurovascularly intact distally. IMAGING: X-rays of the right hip were obtained today and reviewed by me, show a residual fracture line. The ja is in good anatomic position. No other fracture or dislocation identified. ASSESSMENT: Two and a half weeks status post closed reduction intramedullary rodding, right intertrochanteric fracture. PLAN: The patient will continue toe touch weightbearing for approximately 6 weeks postoperatively. The gil were removed today and Steri-Strips were applied. He is continue physical therapy with home health. The patient will follow up in 4 weeks for re-evaluation. At that time, we will obtain new x- rays and decide if he can begin full weightbearing. Dictated By: GAIL SERRATO/VICENTA Conf#: [id number] DID#: [id number] MTDD
--- NOTE | 2016-03-22 14:24 | RADRPT ---
PROCEDURE: Right femur x-ray CLINICAL INDICATION: PAIN TECHNIQUE: AP and lateral views of the femur were obtained. COMPARISON: Right hip series 03/04/2015 FINDINGS: There is a fixation ja involving the right femur stabilizing a healing comminuted right intertrocha nteric fracture of the. Note that the large fracture fragment involving portion of the proximal rig ht femoral diaphysis and lesser trochanter is displaced medially. There are no other fractures or d islocations. There are no focal bony blastic or lytic lesions. There is soft tissue surgical clips and vascular calcifications.. IMPRESSION: 1. Right femoral fixation stabilizing a healing comminuted rounded focus fracture as described jaguar e. 2. No other fractures or dislocation. 3. Osteopenia. RPTAT:AAJJ Physician Stan Date Time Electronically viewed and signed by Kushal Will Physician on 03/22/2016 14:24 /
--- NOTE | 2016-03-22 14:25 | RADRPT ---
PROCEDURE: Right hip series. CLINICAL INDICATION: PAIN TECHNIQUE: AP pelvis and AP and frog lateral views of the right hip were performed. COMPARISON: Right hip series or FINDINGS: There is fixation of the proximal right femur stabilizing a healing comminuted right intertrochanter ic fracture. Large fracture fragment involving the proximal medial right femoral diaphysis and less er trochanter is displaced medially. There are no other fractures or dislocations. The bones are o steopenic. No focal bony blastic lesion. There is soft tissue surgical staple lines present. Ther e is atherosclerotic vascular disease present. IMPRESSION: Fixation of a healing proximal right intertrochanteric fracture as described above. RPTAT:AAJJ Physician Stan Date Time Electronically viewed and signed by Physician Stan on 03/22/2016 14:25 /
== END | disposition home or self-care (01) ==
LOC: HKI 10:55
PROVIDERS: ATTEND Orthopaedic Surgery
DX: S72.141D Displaced intertrochanteric fracture of right femur, subsequent encounter for closed fracture with routine healing (principal); X58.XXXD Exposure to other specified factors, subsequent encounter; Z79.02 Long term (current) use of antithrombotics/antiplatelets
CPT/HCPCS: 73502; 73552; G0463

== ENCOUNTER → 2016-04-17 | Outpatient (CLI) | payer MEDICARE, BC ==
--- NOTE | 2016-04-17 14:09 | RADRPT ---
PROCEDURE: XR right femur. CLINICAL INDICATION: Pain TECHNIQUE: AP and lateral views of the lower femur performed. COMPARISON: 03/22/2016 FINDINGS: Locking intramedullary femoral ja. There is normal mineralization, architecture and alignment. No fracture or osseous lesion is identified. The joints are unremarkable. The soft tissues are unremark able. Arterial vascular calcifications are present IMPRESSION: Locking intramedullary femoral ja Otherwise unremarkable examination RPTAT: HGDB .Jason Perez MD, MD Date Time Electronically viewed and signed by .Jason Perez MD, on 04/17/2016 14:09 .B/
--- NOTE | 2016-04-17 14:13 | RADRPT ---
PROCEDURE: XR pelvis/right hip. CLINICAL INDICATION: Hip pain TECHNIQUE: AP pelvis/AP and lateral right hip views available for review. COMPARISON: 03/22/2016 FINDINGS: ORIF of a comminuted right intertrochanteric fracture with greater and lesser trochanter comminution with an intramedullary ja and a dynamic compression pin. The osseous structures are otherwise normal in mineralization, architecture and alignment. No osseo us lesions are identified. The joints are unremarkable. The soft tissues are unremarkable. There i s arterial vascular calcification. IMPRESSION: ORIF of comminuted right intertrochanteric fracture with greater and lesser trochanter comminution w ith an intramedullary ja and dynamic compression pin RPTAT: HGDB .Jason Perez MD, MD Date Time Electronically viewed and signed by .Jason Perez MD, on 04/17/2016 14:12 .B/
== END | disposition home or self-care (01) ==
LOC: HKI 10:40
PROVIDERS: ATTEND Orthopaedic Surgery
DX: S72.141D Displaced intertrochanteric fracture of right femur, subsequent encounter for closed fracture with routine healing (principal); Z47.89 Encounter for other orthopedic aftercare
CPT/HCPCS: 73502; 73552

== ENCOUNTER → 2016-05-29 | Outpatient (CLI) | payer MEDICARE, BC ==
[~2016-05-29] MED LIST changes: -METF-382 PO; +METF500T4 PO
--- NOTE | 2016-05-29 11:32 | RADRPT ---
PROCEDURE: XR right femur. CLINICAL INDICATION: Hip pain TECHNIQUE: AP and lateral views of the right femur are available for review. COMPARISON: 04/17/2016 FINDINGS: ORIF of a comminuted right intertrochanteric fracture with greater and lesser trochanter comminution with an intramedullary ja and a dynamic compression pin. The osseous structures are otherwise normal in mineralization, architecture and alignment. No osseou s lesions are identified. The joints are unremarkable. The soft tissues are unremarkable. There is a rterial vascular calcification. IMPRESSION: ORIF of comminuted right intertrochanteric fracture with greater and lesser trochanter comminution w ith an intramedullary ja and dynamic compression pin RPTAT: HGDB .Jason Perez MD, MD Date Time Electronically viewed and signed by .Jason Perez MD, on 05/29/2016 11:31 .B/
--- NOTE | 2016-05-29 11:33 | RADRPT ---
PROCEDURE: XR pelvis/right hip. CLINICAL INDICATION: Hip pain TECHNIQUE: AP pelvis/AP and lateral right hip views available for review. COMPARISON: 04/17/2016 FINDINGS: ORIF of a healing comminuted right intertrochanteric fracture with greater and lesser trochanter com minution with an intramedullary ja and a dynamic compression pin. The osseous structures are otherwise normal in mineralization, architecture and alignment. No osseou s lesions are identified. The joints are unremarkable. The soft tissues are unremarkable. There is a rterial vascular calcification. IMPRESSION: ORIF of healing comminuted right intertrochanteric fracture with greater and lesser trochanter commi nution with an intramedullary ja and dynamic compression pin RPTAT: HGDB .Jason Perez MD, Date Time Electronically viewed and signed by .Jason Perez MD, on 05/29/2016 11:33 .B/
== END | disposition home or self-care (01) ==
LOC: HKI 09:32
PROVIDERS: ATTEND Orthopaedic Surgery
DX: S72.141D Displaced intertrochanteric fracture of right femur, subsequent encounter for closed fracture with routine healing (principal); X58.XXXD Exposure to other specified factors, subsequent encounter
CPT/HCPCS: 73502; 73552

== ENCOUNTER → 2016-09-25 | Outpatient (CLI) | payer MEDICARE, BC ==
--- NOTE | 2016-09-25 11:56 | RADRPT ---
PROCEDURE: RIGHT femur x-ray CLINICAL INDICATION: pain TECHNIQUE: AP and lateral views of the femur were obtained. COMPARISON: Plain radiographs of the right femur from 05/29/2016 FINDINGS: There is normal mineralization. No acute fracture or dislocation is seen. A partially visualized intertrochanteric fracture of the right femur is again noted status post inte rnal fixation with a partially visualized intramedullary ja. Narrowing of the medial and lateral compartments of the right knee is noted. Prominent atherosclerotic vascular calcifications are noted. RPTAT: AA IMPRESSION: Continued healing of a right intertrochanteric femur fracture status post internal fixation with an intramedullary ja. Atherosclerotic vascular calcifications. Degenerative changes of the right knee joint. Physician Wayne Date Time Electronically viewed and signed by Ron Price Physician on 09/25/2016 11:56 /
--- NOTE | 2016-09-25 11:58 | RADRPT ---
PROCEDURE: XR pelvis and right hip. CLINICAL INDICATION: PAIN TECHNIQUE: AP pelvis, AP and frog lateral views of the right hip were performed. COMPARISON: Plain radiographs of the right hip from 05/29/2016 FINDINGS: There is decreased osseous mineralization and normal alignment. No acute fracture or osseous lesion is identified. A comminuted right intertrochanteric femur fracture is again noted status post internal fixation wit h an intramedullary ja. Minimal interval callus formation is noted. Moderate degenerative changes of bilateral hip joints are again noted including joint space narrowin g and small osteophytes. Atherosclerotic vascular calcifications are again noted. RPTAT: AA IMPRESSION: Redemonstration of a comminuted right intertrochanteric femur fracture status post internal fixation with an intermedullary ja. Minimal interval callus formation is noted. Moderate degenerative changes of bilateral hip joints. Decreased osseous mineralization. Physician Wayne Date Time Electronically viewed and signed by Physician Wayne on 09/25/2016 11:57 /
== END | disposition home or self-care (01) ==
LOC: HKI 09:39
PROVIDERS: ATTEND Orthopaedic Surgery
DX: Z47.89 Encounter for other orthopedic aftercare (principal); S72.141D Displaced intertrochanteric fracture of right femur, subsequent encounter for closed fracture with routine healing
CPT/HCPCS: 73502; 73552; G0463